=== PATIENT | female | born 1965 | race Hispanic/Latino ===

== ENCOUNTER 2017-04-05 06:21 | Day surgery (SDC) | payer BC ==
[2017-04-04 11:45] VITALS: BMI 54.5
[~2017-04-05 06:21] MED LIST: Cyclopentolate 1% Opth Drop 2 ML BOT FS SCH; EPINEPHrine 0.3 MG, Dextrose 50% 3 ML in Ophthalmic Irrigation Solution 500 ML FS SCH; Phenylephrine HCl 2.5% Ophth Soln 5 ML BOT FS SCH
[2017-04-05] MEDS ORDERED: Phenylephrine HCl 2.5% Ophth Soln 5 ML BOT ONE (06:42)
[2017-04-05] MEDS ORDERED: Cyclopentolate 1% Opth Drop 2 ML BOT ONE ×2 (06:42→06:47)
[2017-04-05] MEDS ORDERED: Diprivan 20 ML ONE (06:53)
[2017-04-05] MEDS ORDERED: Midazolam HCl 2 mg/2 ml Vial ONE (08:01)
[2017-04-05] MEDS ORDERED: Propofol 200 MG/20 ML VIAL ONE (08:15)
--- NOTE | 2017-04-05 09:29 | OP ---
DATE OF PROCEDURE: 04/05/2017 PREOPERATIVE DIAGNOSIS: Vitreous hemorrhage. POSTOPERATIVE DIAGNOSES: Vitreous hemorrhage, tractional retinal detachment, right eye. SURGEON: Herb Benavidez M.D. ANESTHESIA: Local with monitored anesthesia care. PROCEDURE IN DETAIL: The patient was identified in the preoperative holding area. Appropriate info rmed consent for the planned surgical procedure on the right eye had been obtained. The patient was transported to the operative suite where appropriate cardiopulmonary monitoring was established. L ocal anesthesia was obtained using retrobulbar and modified Van Lint lid block using 50/50 mixture o f 4% lidocaine and 0.75% bupivacaine. The patient was prepped and draped in the usual sterile lizy r for ophthalmic surgery on the right eye. Lid speculum was placed in the right eye. The 25-gauge trocars were placed in conjunctiva and sclera supratemporally, inferotemporally, and supranasally. Infusion line was placed inferotemporally. Light pipe and vitreous cutter were inserted into the ey e. Core of vitrectomy was performed and areas of tractional detachment were noted superior nasally and inferiorly. These were dissected from the retinal surface. Area of subretinal fluid was noted superiorly and very thin retina was noted nasally to the nerve and all tractional attachments were r elieved. Panretinal photocoagulation was placed into all nonmacular and nontreated areas of the ret arsh. Complete air fluid exchange was performed with 10 minutes being allowed for fluid to drain pos teriorly. Trocars were removed and eye was noted to retain pressure well. Retrobulbar Kenalog and subconjunctival Ancef were placed. Atropine and antibiotic ointment were placed, and the eye was pa tched and shielded. The patient was taken to the postoperative recovery unit in good condition crissy mitchell suffered no immediate perioperative complications. DISCHARGE INSTRUCTIONS: The patient was instructed to keep patch and shield on, avoid lifting and b ending, and follow up in the morning with Dr. Benavidez.
== END 2017-04-05 10:06 | disposition home or self-care (01) ==
LOC: SDC 06:21
PROVIDERS: ATTEND Ophthalmology Retina Specialist
PROC: 08T43ZZ Resection of Right Vitreous, Percutaneous Approach (ICD-10-PCS; principal; 2017-04-05)
PROC: 08QE3ZZ Repair Right Retina, Percutaneous Approach (ICD-10-PCS; principal; 2017-04-05)
DX: H43.11 Vitreous hemorrhage, right eye (principal); H33.41 Traction detachment of retina, right eye; I10 Essential (primary) hypertension; E11.9 Type 2 diabetes mellitus without complications; Z79.4 Long term (current) use of insulin; Z79.899 Other long term (current) drug therapy; Z88.5 Allergy status to narcotic agent; Z88.0 Allergy status to penicillin; Z89.421 Acquired absence of other right toe(s); Z90.49 Acquired absence of other specified parts of digestive tract; Z98.890 Other specified postprocedural states
CPT/HCPCS: 36416; J0171; J2250; J2704

== ENCOUNTER 2017-10-12 12:39 | Inpatient (IN) | payer BC ==
[2017-10-12 14:17] LABS: #Eosinphils 0.2 thou/uL (0.0-0.7); #Lymphocytes 2.1 thou/uL (1.20-3.40); #Monocytes 0.6 thou/uL (0.11-0.59); #Neutrophils 6.4 thou/uL (1.40-6.50); %Basophils 0.3 % (0.0-1.0); %Eosinophils 1.9 % (0.0-10.0); %Lymphocytes 22.4 % (21.0-51.0); %Monocytes 6.8 % (0.0-10.0); %Neutrophils 68.5 % (42.0-75.0); Hemoglobin 13.8 g/dL (12.0-16.0); Mean Corpuscular HGB CONC 34.6 g/dL (32.0-36.0); Mean Corpuscular Hemoglobin 29.7 pg (27.0-31.0); Mean Corpuscular Volume 85.9 fl (81.0-99.0); Mean Platelet Volume 8.7 fL (7.4-10.4); Platelet Count 211 thou/uL (130-400); RBC Distribution Width 12.2 % (11.5-14.5); Red Blood Cell (RBC) Count 4.63 mill/uL (4.20-5.40); White Blood Cell (WBC) Count 9.3 thou/uL (4.8-10.8)
--- NOTE | 2017-10-12 14:43 | RAD ---
3 VIEWS LEFT FOOT: Date: 10/12/17 INDICATION: Left leg pain and redness. COMPARISON: None. FINDINGS: Since the comparison exam dated 12/18/16, there has been interval partial reamputation of the first d igit through the proximal phalangeal shaft. There is soft tissue swelling and soft tissue gas involvi ng the distal tip of the left foot third digit. No definite destructive osteolysis is evident. There is soft tissue swelling of the foreleg. Lisfranc alignment is preserved. There is scattered osteoarth rosis of the midfoot and forefoot. Enthesopathic change is seen off the calcaneus. Monckeberg's calci fications seen within the soft tissues. IMPRESSION: 1. Soft tissue infection of the distal tip of the left third digit without overt destructive osteoly sis suggests radiographic evidence of osteomyelitis. 2. Interval partial reamputation of the first ray through the proximal phalangeal shaft. 3. Scattered osteoarthrosis. 4. Soft tissue swelling of the left foot. POS: [facility]
--- NOTE | 2017-10-12 14:44 | ULT ---
VENOUS DUPLEX SONOGRAM LEFT LOWER EXTREMITY: Date: 10/12/17 HISTORY: Left leg pain and edema. FINDINGS: The left common femoral vein and greater saphenous junction were evaluated along with the femoral, de ep femoral, popliteal, and posterior tibial veins. There is good color and spectral Doppler flow, com pression, and augmentation. IMPRESSION: No sonographic evidence of deep venous thrombosis within the left lower extremity. POS: [facility]
--- NOTE | 2017-10-12 14:45 | RAD ---
2 VIEWS LEFT FORELEG: Date: 10/12/17 INDICATION: Left leg pain and redness. COMPARISON: None. FINDINGS: No acute fracture or subluxation is evident. There is degenerative arthrosis of the left knee. This i s progressed from the comparison dated 03/31/03. IMPRESSION: 1. No acute osseous abnormality. 2. Worsening moderate osteoarthrosis of the left knee. POS: [facility]
[2017-10-12 15:05] LABS: ALT (SGPT) 18 U/L (8-55); AST (SGOT) 18 U/L (5-34); Alkaline Phosphatase 112 U/L (40-150); Anion Gap 10 mmol/L (10-20); BUN (Urea Nitrogen) 25 mg/dL (9.8-20.1); Bilirubin, Total 0.4 mg/dL (0.2-1.2); Calc. Creatinine Clearance 0 mL/min (70-130); Calcium 9.2 mg/dL (7.8-10.44); Carbon Dioxide 23 mmol/L (22-29); Chloride 107 mmol/L (98-107); Estimated GFR-MDRD 75; Globulin 3.9 g/dL (2.4-3.5); Glucose 148 mg/dL (70-105); Protein, Total 7.9 g/dL (6.0-8.3); Sodium 136 mmol/L (136-145)
[2017-10-12] MEDS ORDERED: Ketorolac Tromethamine 30 MG/ML VIAL ONE (15:26)
--- NOTE | 2017-10-12 16:27 | HP ---
PRIMARY CARE PHYSICIAN: Camila Tanner, Family Nurse Practitioner. REASON FOR ADMISSION: Left lower extremity cellulitis. HISTORY OF PRESENT ILLNESS: A 52-year-old female who has a history of diabetes as well as u nderlying morbid obesity who presented to emergency room with a complaint of her erythema, swelling, tenderness over left lower extremity which was started yesterday and rapidly gotten worse today. Iwona hinton reports that her redness and swelling significantly worsened this morning and she was concerned about because of her diabetes history. She has a history of diabetic toe infection in the past requi red ray amputation of first great toe. The patient also has some callus and open lesion on the third left toe. Patient denies any trauma. She denies any insect bites. She denies any fever or chills. She does report pain in lower extremity about 5/10 in intensity, which is getting worse with walkin g. In the emergency room, patient was slightly having low grade fever. Her ultrasound was negative for any DVT. X-ray showed only soft tissue swelling without any acute process. At this point, because o f rapidly worsening condition and underlying diabetes history, the patient is at risk for worsening o f infection, sepsis and that is why we decided to keep this patient in hospital for IV antibiotic the rapy. Patient denies any UTI symptoms. She denies any constipation, diarrhea. She denies any chest pain, palpitation. She denies any calf tenderness. She denies any headache, flu-like illness or focal mot or or sensory symptoms. REVIEW OF SYSTEMS: The following complete review of systems was negative, unless otherwise mentioned in the HPI or below: Constitutional: Weight loss or gain, ability to conduct usual activities. Sk in: Rash, itching. Eyes: Double vision, pain. ENT/Mouth: Nose bleeding, neck stiffness, pain, te nderness. Cardiovascular: Palpitations, dyspnea on exertion, orthopnea. Respiratory: Shortness of breath, wheezing, cough, hemoptysis, fever or night sweats. Gastrointestinal: Poor appetite, abdom inal pain, heartburn, nausea, vomiting, constipation, or diarrhea. Genitourinary: Urgency, frequenc y, dysuria, nocturia. Musculoskeletal: Pain, swelling. Neurologic/Psychiatric: Anxiety, depressio n. Allergy/Immunologic: Skin rash, bleeding tendency. Please see my HPI for pertinent positive and negative. All other review of systems reviewed and negative except as mentioned in the HPI. ALLERGIES: MORPHINE and PENICILLIN. CURRENT HOME MEDICATIONS: The patient does not have any medication with her at this point, but she r eports that there is no significant change in her medication from previous. The patient is on follow ing medication based on our hospital record, Coreg 3.125 mg p.o. b.i.d., Lantus insulin 30 units subQ at bedtime and 40 units subQ in the morning, MiraLax 17 grams p.o. daily p.r.n., ranitidine 300 mg p .o. daily p.r.n., tramadol 50 mg q.4 hourly p.r.n. PAST MEDICAL HISTORY: Morbid obesity, diabetes type 2, hypertension, history of glaucoma in the left eye, gastroesophageal reflux disease, osteoarthritis. PAST SURGICAL HISTORY: Cholecystectomy, gluteal abscess required I&D, left eye surgery, left great t oe partial ray amputation, left fifth toe partial amputation. PAST PSYCHIATRIC HISTORY: Reviewed and negative. SOCIAL HISTORY: The patient lives at home with family. No history of tobacco, alcohol or illicit dr ug abuse. FAMILY HISTORY: No strong family history of premature coronary artery disease, stroke or cancer. Di abetes and asthma runs among several family members. EMERGENCY ROOM COURSE: Patient has received vancomycin 1 gram and Toradol 30 mg. PHYSICAL EXAMINATION: VITAL SIGNS: On arrival, blood pressure 151/77, pulse 78, respiratory rate 18, temperature 99.0, sat uration 99%, weight 131.5 kilograms. GENERAL: Patient is currently alert, awake, no obvious acute distress. HEENT: Normocephalic, atraumatic. Eyes: Pupils round, reactive to light. Extraocular muscle intac t. ENT: Oropharynx within normal limits. Moist mucous membranes. No oral lesion, no pharyngeal er ythema, no exudate. NECK: Supple, no JVD, no thyromegaly, no carotid bruit, no jugular venous distention. LUNGS: Clear to auscultation without any rhonchi or rales. CARDIAC: S1, S2 regular. No murmur, no gallop, no rub. ABDOMEN: Morbid obesity limiting examination. Bowel sounds present, nontender, nondistended. No or ganomegaly, no mass, no suprapubic tenderness. BACK: Unremarkable, no CVA tenderness. EXTREMITIES: Upper extremities, passive movement of all joints are normal. Lower extremities, left lower extremity, erythema, swelling, tenderness noted. Good distal pulsation. On the third toe, pat ient does have callus as well as mild diabetic toe ulcer without any significant purulent drainage. Patient does have partial ray amputation of great toe as well as fifth toe. Right lower extremity ap pears to be within normal limit. Patient does have arthritis changes on left knee. NEUROLOGIC: Nonfocal examination. The patient moves all 4 limbs. Plantar bilateral flexor. PSYCHIATRIC: Normal affect. HEMATOLOGIC: No lymphadenopathy. SIGNIFICANT LABS AND INVESTIGATION: CBC: WBC 9.3, hemoglobin 13.8, platelet 211. ESR 47. BMP: So dium 136, potassium 4.0, chloride 107, carbon dioxide 23, anion gap 10, BUN 25, creatinine 0.80, gluc ose 148, calcium 9.2, lactic acid 1.0. LFT: AST 18, ALT 18, alkaline phosphatase 112, albumin 4.0. CRP 1.91. Ultrasound of lower extremity, negative for any DVT. X-ray tibia, fibula leg showing wor sening of osteoarthritis of left knee. X-ray of the left foot showing soft tissue infection of the d istal tip of the left third digit, soft tissue swelling of the left foot. ASSESSMENT AND PLAN: 1. Left lower extremity cellulitis rapidly getting worse with risk of sepsis. 2. Diabetes type 2, insulin requiring. 3. Morbid obesity. 4. Gastroesophageal reflux disease. 5. Hypertension. 6. History of glaucoma and left eye. PLAN: 1. Admission to medical floor. 2. Vancomycin as per pharmacy adjusted dose. 3. Rocephin 2 gram IV daily. 4. Watch for any allergic reaction given patient has previous history of PENICILLIN allergy. 5. DVT prophylaxis with Lovenox 40 mg subQ daily. 6. Probiotics with Florastor 250 mg p.o. daily. 7. Gastrointestinal prophylaxis with Pepcid 20 mg p.o. b.i.d. 8. Code status: The patient is FULL CODE. Patient is making her decision by herself. Disposition plan based on clinical course. We are expecting patient's stay in hospital more than 2 m idnights. Patient will need IV antibiotic therapy and upon clinical improvement, we will decide to l et her go home in 2-3 days. This patient's laboratory parameter looks normal, but clinically this patient has very bad cellulitis that warrants admission.
[2017-10-12] MEDS ORDERED: Sodium Chloride 0.65% Nasal 44 ML BOT EA NARE PRN (17:09)
[2017-10-12] MEDS ORDERED: Ondansetron ODT 4 MG TAB PO PRN (17:09)
[2017-10-12] MEDS ORDERED: Loratadine 10 MG TAB PO PRN (17:09)
[2017-10-12] MEDS ORDERED: Chloraseptic Spray 180 ml Bottle PO PRN (17:09)
[2017-10-12] MEDS ORDERED: hydrALAZINE 20 MG/ML VIAL SLOW IVP PRN (17:09)
[2017-10-12] MEDS ORDERED: Dextrose 50% Abboject 50 ML SYRINGE SLOW IVP PRN (17:09)
[2017-10-12] MEDS ORDERED: Fentanyl 100 MCG/2 ML VIAL SLOW IVP PRN (17:09)
[2017-10-12] MEDS ORDERED: Nystatin Powder 15 GM BOT TOP PRN (17:09)
[2017-10-12] MEDS ORDERED: Acetaminophen 325 MG TAB PO PRN (17:09)
[2017-10-12] MEDS ORDERED: Milk Of Magnesia 30 ML UDCUP PO PRN (17:09)
[2017-10-12] MEDS ORDERED: Diabetic Tussin 200 MG/10 ML UDCUP PO PRN (17:09)
[2017-10-12] MEDS ORDERED: Artificial Tears 18 DROP/0.9 ML EA EYE PRN (17:09)
[2017-10-12] MEDS ORDERED: Ketorolac Tromethamine 30 MG/ML VIAL IVP PRN (17:09)
[2017-10-12] MEDS ORDERED: HumaLOG 300 UNITS/3 ML VIAL SC PRN (17:09)
[2017-10-12] MEDS ORDERED: Ondansetron HCl/PF 4 MG/2 ML Vial IVP PRN (17:09)
[2017-10-12] MEDS ORDERED: Eucerin (Mineral Oil/Petrolatum,White) 30 gm Jar TOP PRN (17:09)
[2017-10-12] MEDS ORDERED: Dextrose 5% in Water 1,000 ML IV PRN (17:09)
[2017-10-12] MEDS ORDERED: Zolpidem Tartrate 5 MG TAB PO PRN (17:09)
[2017-10-12] MEDS ORDERED: Loperamide HCl 2 MG CAP PO PRN (17:09)
[2017-10-12] MEDS ORDERED: Senokot 8.6 MG TAB PO PRN (17:09)
[2017-10-12 17:31] VITALS: BMI 52.8
[2017-10-12] MEDS ORDERED: cefTRIAXone\\ROCEPHIN 2 GM in Sodium Chloride 0.9% 100 ML IVPB SCH (18:00)
[2017-10-12] MEDS: cefTRIAXone\\ROCEPHIN 2 GM in Sodium Chloride 0.9% 100 ML IVPB SCH (21:34)
[2017-10-12] MEDS: Famotidine 20 MG TAB PO SCH (21:37)
[2017-10-12] MEDS: Carvedilol 3.125 MG TAB PO SCH (21:38)
[2017-10-12] MEDS: Insulin Detemir 100 UNITS/ML 20 UNITS in Pre-Filled Syringe SC SCH (21:45)
[2017-10-13] MEDS ORDERED: Timolol 0.25% Ophth Soln 5 ml Bottle EA EYE SCH (09:00)
[2017-10-13] MEDS ORDERED: Brimonidine Tartrate 0.2% Ophth Soln 5 ml Bottle EA EYE SCH (09:00)
[2017-10-13] MEDS ORDERED: Polyethylene Glycol 3350 17 GM Packet PO PRN (09:16)
[2017-10-13] MEDS: Timolol 0.25% Ophth Soln 5 ml Bottle EA EYE SCH ×3 (09:43→20:30)
[2017-10-13] MEDS: Brimonidine Tartrate 0.2% Ophth Soln 5 ml Bottle EA EYE SCH ×2 (09:44→20:04)
[2017-10-13] MEDS: Insulin Detemir 100 UNITS/ML 20 UNITS in Pre-Filled Syringe SC SCH ×2 (09:46→20:07)
[2017-10-13] MEDS: Enoxaparin Sodium 40 MG/0.4 ML SYRINGE SC SCH (09:46)
[2017-10-13] MEDS: Famotidine 20 MG TAB PO SCH ×2 (09:47→20:03)
[2017-10-13] MEDS: Carvedilol 3.125 MG TAB PO SCH ×2 (09:47→10:48)
[2017-10-13] MEDS: traMADol HCl 50 MG TAB PO PRN (09:48)
[2017-10-13] MEDS: Saccharomyces boulardii 250 MG CAP PO SCH (09:48)
--- NOTE | 2017-10-13 10:00 | PDOC.PN ---
- Subjective Encounter Start Date: 10/13/17 Encounter Start Time: 08:00 Patient seen and examined. No new complaints. No overnight events - Objective Resuscitation Status: Resuscitation Status FULL:Full Resuscitation MAR Reviewed: Yes Vital Signs & Weight: Vital Signs (12 hours) Temp Pulse Resp BP Pulse Ox 10/13/17 07:43 98.3 F 75 16 153/83 H 98 10/13/17 04:00 97.6 F 74 18 143/78 H 99 10/13/17 00:00 97.7 F 80 18 147/77 H 96 Weight Weight 289 lb Result Diagrams: 10/12/17 14:06 10/12/17 14:06 Additional Labs: Accuchecks 10/13/17 10/12/17 10/12/17 05:19 20:21 17:06 POC Glucose 137 H 174 H 124 H Phys Exam - Physical Examination Constitutional: NAD HEENT: PERRLA, moist MMs, sclera anicteric Neck: no JVD, supple Respiratory: no wheezing, no rales, no rhonchi Cardiovascular: RRR, no significant murmur, no rub Gastrointestinal: soft, non-tender, no distention, positive bowel sounds left leg cellulitis improving Neurological: non-focal, normal sensation, moves all 4 limbs Psychiatric: normal affect, A&O x 3 Skin: no rash, normal turgor Dx/Plan (1) Cellulitis of left lower extremity Code(s): L03.116 - CELLULITIS OF LEFT LOWER LIMB Status: Acute (2) Diabetes type 2, controlled Code(s): E11.9 - TYPE 2 DIABETES MELLITUS WITHOUT COMPLICATIONS Status: Chronic (3) GERD (gastroesophageal reflux disease) Code(s): K21.9 - GASTRO-ESOPHAGEAL REFLUX DISEASE WITHOUT ESOPHAGITIS Status: Chronic (4) Hypertension Code(s): I10 - ESSENTIAL (PRIMARY) HYPERTENSION Status: Chronic Qualifiers: (5) Morbid obesity with BMI of 50.0-59.9, adult Code(s): E66.01 - MORBID (SEVERE) OBESITY DUE TO EXCESS CALORIES; Z68.43 - BODY MASS INDEX (BMI) 50-59.9 , ADULT Status: Chronic (6) Glaucoma Code(s): H40.9 - UNSPECIFIED GLAUCOMA Status: Acute Qualifiers: Glaucoma type: primary angle-closure Primary angle closure glaucoma type: chronic Laterality: left Glaucoma stage: stage unspecified Qualified Code( s): H40.2220 - Chronic angle-closure glaucoma, left eye, stage unspecified - Plan cont current plan of care, continue antibiotics * restart her home medication * continue vancomycin and rocephin * she has clinical improvement, will continue next couple days * medication reviewed as below * symptomatic treatment. Review of Systems - Review of Systems Eyes: negative: Pain, Vision Change, Conjunctivae Inflammation, Eyelid Inflammation, Redness, Other ENT: negative: Ear Pain, Ear Discharge, Nose Pain, Nose Discharge, Nose Congestion, Mouth Pain, Mouth Swelling, Throat Pain, Throat Swelling, Other Respiratory: negative: Cough, Dry, Shortness of Breath, Hemoptysis, SOB with Excertion, Pleuritic Pain, Sputum, Wheezing Cardiovascular: negative: chest pain, palpitations, orthopnea, paroxysmal nocturnal dyspnea, edema, light headedness, other Gastrointestinal: negative: Nausea, Vomiting, Abdominal Pain, Diarrhea, Constipation, Melena, Hematochezia, Other Genitourinary: negative: Dysuria, Frequency, Incontinence, Hematuria, Retention , Other Musculoskeletal: Leg Pain. negative: Neck Pain, Shoulder Pain, Arm Pain, Back Pain, Hand Pain, Foot Pain, Other Skin: negative: Rash, Lesions, Ibrahima, Bruising, Other - Medications/Allergies Allergies/Adverse Reactions: Allergies Allergy/AdvReac Type Severity Reaction Status Date / Time morphine Allergy Intermediate ITCHING, Verified 04/04/17 11:43 RASH Penicillins Allergy Hives Verified 04/04/17 11:43 Medications: Current Medications Acetaminophen (Tylenol) 650 mg PO Q4H PRN PRN Reason: Headache/Fever or Pain Al Hydroxide/Mg Hydroxide (Maalox) 30 ml PO Q6H PRN PRN Reason: Heartburn or Indigestion Artificial Tears (Tears Naturale) 0 drop EA EYE PRN PRN PRN Reason: Dry Eyes Brimonidine Tartrate (Alphagan 0.2% Ophth Soln) 1 drop EA EYE BID ON LICENSE OF [facility] Last Admin: 10/13/17 09:44 Dose: 1 drop Carvedilol (Coreg) 3.125 mg PO DAILY ON LICENSE OF [facility] Last Admin: 10/13/17 09:47 Dose: 3.125 mg Dextrose/Water (Dextrose 50%) 25 gm SLOW IVP PRN PRN PRN Reason: Hypoglycemia Enoxaparin Sodium (Lovenox) 40 mg SC 0900 ON LICENSE OF [facility] Last Admin: 10/13/17 09:46 Dose: 40 mg Famotidine (Pepcid) 20 mg PO BID ON LICENSE OF [facility] Last Admin: 10/13/17 09:47 Dose: 20 mg Fentanyl (Sublimaze) 25 mcg SLOW IVP Q4H PRN PRN Reason: Pain Glucagon (Glucagon) 1 mg IM PRN PRN PRN Reason: Hypoglycemia Guaifenesin (Robitussin Sf) 200 mg PO Q4H PRN PRN Reason: Cough Hydralazine HCl (Apresoline) 10 mg SLOW IVP Q4H PRN PRN Reason: Systolic BP > 180 Dextrose/Water (D5w) 1,000 mls @ 0 mls/hr IV .Q0M PRN; As Directed PRN Reason: Hypoglycemia Insulin Detemir 20 units/ (Miscellaneous Medication) 0.2 mls @ 0 mls/hr SC HS ON LICENSE OF [facility] Last Admin: 10/12/17 21:45 Dose: 0.2 mls Insulin Detemir 20 units/ (Miscellaneous Medication) 0.2 mls @ 0 mls/hr SC QAM ON LICENSE OF [facility] Last Admin: 10/13/17 09:46 Dose: 0.2 mls Vancomycin HCl 2 gm/ Sodium (Chloride) 500 mls @ 250 mls/hr IVPB 0600,1800 ON LICENSE OF [facility] Last Admin: 10/13/17 06:12 Dose: 500 mls Ceftriaxone Sodium 2 gm/ (Sodium Chloride) 100 mls @ 200 mls/hr IVPB 2000 ON LICENSE OF [facility] Last Admin: 10/12/17 21:34 Dose: 100 mls Insulin Human Lispro (Humalog) 0 units SC .MODERATE SLIDING SC PRN PRN Reason: Moderate Correctional Scale Insulin Human Lispro (Humalog) 0 units SC .BEDTIME SLIDING SC PRN PRN Reason: Bedtime Correctional Scale Ketorolac Tromethamine (Toradol) 15 mg IVP Q6H PRN PRN Reason: Pain Stop: 10/17/17 17:10 Last Admin: 10/12/17 21:39 Dose: 15 mg Loperamide HCl (Imodium) 2 mg PO PRN PRN PRN Reason: Diarrhea/Loose Stools Loratadine (Claritin) 10 mg PO DAILYPRN PRN PRN Reason: Sinus Symptoms Magnesium Hydroxide (Milk Of Magnesium) 30 ml PO DAILYPRN PRN PRN Reason: Constipation Mineral Oil/White Petrolatum (Eucerin Cream) 0 gm TOP BIDPRN PRN PRN Reason: Dry Skin Miscellaneous Medication (Pharmacy To Dose) 1 each IVPB ONE PRN PRN Reason: Pharmacy to dose Stop: 11/11/17 17:10 Nystatin (Mycostatin Powder) 1 gm TOP BID PRN PRN Reason: Topical Irritations Ondansetron HCl (Zofran Odt) 4 mg PO Q6H PRN PRN Reason: Nausea/Vomiting Ondansetron HCl (Zofran) 4 mg IVP Q6H PRN PRN Reason: Nausea/Vomiting Phenol (Chloraseptic [place] 180 Ml Bot) 0 ml PO PRN PRN PRN Reason: Sore Throat Polyethylene Glycol (Miralax) 17 gm PO PRN PRN PRN Reason: Constipation Saccharomyces Boulardii (Florastor) 250 mg PO DAILY ON LICENSE OF [facility] Last Admin: 10/13/17 09:48 Dose: 250 mg Senna (Senokot) 2 tab PO HSPRN PRN PRN Reason: Constipation Sodium Chloride (Harlan Nasal [place] 0.65%) 0 ml EA NARE QIDPRN PRN PRN Reason: Nasal Congestion Sodium Chloride (Flush - Normal Saline) 10 ml IVF Q12HR ON LICENSE OF [facility] Last Admin: 10/13/17 09:47 Dose: 10 ml Sodium Chloride (Flush - Normal Saline) 10 ml IVF PRN PRN PRN Reason: Saline Flush Timolol Maleate (Timoptic 0.25% Oph Soln) 1 drop EA EYE TID ON LICENSE OF [facility] Last Admin: 10/13/17 09:43 Dose: 1 drop Tramadol HCl (Ultram) 50 mg PO Q4H PRN PRN Reason: Moderate Pain (4-6) Last Admin: 10/13/17 09:48 Dose: 50 mg Zolpidem Tartrate (Ambien) 5 mg PO HSPRN PRN PRN Reason: Insomnia
[2017-10-13] MEDS: HumaLOG 300 UNITS/3 ML VIAL SC PRN ×2 (12:38→16:31)
[2017-10-13] MEDS: Mag-Al 1200 mg/1200 mg/30 ML UDCUP PO PRN (18:39)
[2017-10-13] MEDS: cefTRIAXone\\ROCEPHIN 2 GM in Sodium Chloride 0.9% 100 ML IVPB SCH (20:05)
[2017-10-13] MEDS ORDERED: Non-Formulary Item 1 EACH (Brimonidine Tartrate [Brimonidine Tartrate 0.15% Ophth Soln] 1 EA EYE SCH (21:00)
[2017-10-14 05:49] LABS: Vancomycin, Trough 20.9 ug/mL
[2017-10-14] MEDS: Brimonidine Tartrate 0.2% Ophth Soln 5 ml Bottle EA EYE SCH ×2 (08:03→20:34)
[2017-10-14] MEDS: Enoxaparin Sodium 40 MG/0.4 ML SYRINGE SC SCH (08:04)
[2017-10-14] MEDS: Famotidine 20 MG TAB PO SCH ×2 (08:05→20:34)
[2017-10-14] MEDS: Insulin Detemir 100 UNITS/ML 20 UNITS in Pre-Filled Syringe SC SCH ×2 (08:05→20:35)
[2017-10-14] MEDS: Saccharomyces boulardii 250 MG CAP PO SCH (08:05)
[2017-10-14] MEDS: Carvedilol 3.125 MG TAB PO SCH (08:05)
[2017-10-14] MEDS: Timolol 0.25% Ophth Soln 5 ml Bottle EA EYE SCH ×3 (08:07→20:34)
--- NOTE | 2017-10-14 10:49 | PDOC.PN ---
- Subjective Encounter Start Date: 10/14/17 Encounter Start Time: 09:00 Patient seen and examined for cellulitis. No new complaints. No overnight events - Objective Resuscitation Status: Resuscitation Status FULL:Full Resuscitation MAR Reviewed: Yes Vital Signs & Weight: Vital Signs (12 hours) Temp Pulse Resp BP Pulse Ox 10/14/17 07:38 97.9 F 77 16 146/79 H 98 10/14/17 04:00 97.9 F 72 20 118/73 96 10/14/17 00:00 97.8 F 70 20 125/75 97 Weight Admit Weight 289 lb Weight 289 lb I&O: 10/13/17 10/14/17 10/15/17 06:59 06:59 06:59 Intake Total 720 Balance 720 Result Diagrams: 10/12/17 14:06 10/12/17 14:06 Additional Labs: Accuchecks 10/14/17 10/13/17 10/13/17 04:05 16:26 11:55 POC Glucose 175 H 228 H 195 H Phys Exam - Physical Examination Constitutional: NAD HEENT: PERRLA, moist MMs, sclera anicteric Neck: no JVD, supple Respiratory: no wheezing, no rales, no rhonchi Cardiovascular: RRR, no significant murmur, no rub Gastrointestinal: soft, non-tender, no distention, positive bowel sounds Musculoskeletal: no edema, pulses present left LE cellulitis continue to improve Neurological: non-focal, normal sensation, moves all 4 limbs Psychiatric: normal affect, A&O x 3 Skin: no rash, normal turgor Dx/Plan (1) Cellulitis of left lower extremity Code(s): L03.116 - CELLULITIS OF LEFT LOWER LIMB Status: Acute (2) Diabetes type 2, controlled Code(s): E11.9 - TYPE 2 DIABETES MELLITUS WITHOUT COMPLICATIONS Status: Chronic (3) GERD (gastroesophageal reflux disease) Code(s): K21.9 - GASTRO-ESOPHAGEAL REFLUX DISEASE WITHOUT ESOPHAGITIS Status: Chronic (4) Hypertension Code(s): I10 - ESSENTIAL (PRIMARY) HYPERTENSION Status: Chronic Qualifiers: (5) Morbid obesity with BMI of 50.0-59.9, adult Code(s): E66.01 - MORBID (SEVERE) OBESITY DUE TO EXCESS CALORIES; Z68.43 - BODY MASS INDEX (BMI) 50-59.9 , ADULT Status: Chronic (6) Glaucoma Code(s): H40.9 - UNSPECIFIED GLAUCOMA Status: Acute Qualifiers: Glaucoma type: primary angle-closure Primary angle closure glaucoma type: chronic Laterality: left Glaucoma stage: stage unspecified Qualified Code( s): H40.2220 - Chronic angle-closure glaucoma, left eye, stage unspecified - Plan cont current plan of care, plan discussed w/ family, continue antibiotics * continue rocephin and vancomycin * expecting discharge tomorrow * medication reviewed as below * symptomatic treatment * discussed with . Review of Systems - Review of Systems ENT: negative: Ear Pain, Ear Discharge, Nose Pain, Nose Discharge, Nose Congestion, Mouth Pain, Mouth Swelling, Throat Pain, Throat Swelling, Other Respiratory: negative: Cough, Dry, Shortness of Breath, Hemoptysis, SOB with Excertion, Pleuritic Pain, Sputum, Wheezing Cardiovascular: negative: chest pain, palpitations, orthopnea, paroxysmal nocturnal dyspnea, edema, light headedness, other Gastrointestinal: negative: Nausea, Vomiting, Abdominal Pain, Diarrhea, Constipation, Melena, Hematochezia, Other Genitourinary: negative: Dysuria, Frequency, Incontinence, Hematuria, Retention , Other Musculoskeletal: negative: Neck Pain, Shoulder Pain, Arm Pain, Back Pain, Hand Pain, Leg Pain, Foot Pain, Other Skin: negative: Rash, Lesions, Ibrahima, Bruising, Other - Medications/Allergies Allergies/Adverse Reactions: Allergies Allergy/AdvReac Type Severity Reaction Status Date / Time morphine Allergy Intermediate ITCHING, Verified 04/04/17 11:43 RASH Penicillins Allergy Hives Verified 04/04/17 11:43 Medications: Current Medications Acetaminophen (Tylenol) 650 mg PO Q4H PRN PRN Reason: Headache/Fever or Pain Al Hydroxide/Mg Hydroxide (Maalox) 30 ml PO Q6H PRN PRN Reason: Heartburn or Indigestion Last Admin: 10/13/17 18:39 Dose: 30 ml Artificial Tears (Tears Naturale) 0 drop EA EYE PRN PRN PRN Reason: Dry Eyes Brimonidine Tartrate (Alphagan 0.2% Ophth Soln) 1 drop EA EYE BID [facility] Last Admin: 10/14/17 08:03 Dose: 1 drop Carvedilol (Coreg) 3.125 mg PO DAILY [facility] Last Admin: 10/14/17 08:05 Dose: 3.125 mg Dextrose/Water (Dextrose 50%) 25 gm SLOW IVP PRN PRN PRN Reason: Hypoglycemia Enoxaparin Sodium (Lovenox) 40 mg SC 0900 [facility] Last Admin: 10/14/17 08:04 Dose: 40 mg Famotidine (Pepcid) 20 mg PO BID [facility] Last Admin: 10/14/17 08:05 Dose: 20 mg Fentanyl (Sublimaze) 25 mcg SLOW IVP Q4H PRN PRN Reason: Pain Glucagon (Glucagon) 1 mg IM PRN PRN PRN Reason: Hypoglycemia Guaifenesin (Robitussin Sf) 200 mg PO Q4H PRN PRN Reason: Cough Hydralazine HCl (Apresoline) 10 mg SLOW IVP Q4H PRN PRN Reason: Systolic BP > 180 Dextrose/Water (D5w) 1,000 mls @ 0 mls/hr IV .Q0M PRN; As Directed PRN Reason: Hypoglycemia Insulin Detemir 20 units/ (Miscellaneous Medication) 0.2 mls @ 0 mls/hr SC HS [facility] Last Admin: 10/13/17 20:07 Dose: 0.2 mls Insulin Detemir 20 units/ (Miscellaneous Medication) 0.2 mls @ 0 mls/hr SC QAM [facility] Last Admin: 10/14/17 08:05 Dose: 0.2 mls Vancomycin HCl 2 gm/ Sodium (Chloride) 500 mls @ 250 mls/hr IVPB 0600,1800 [facility] Last Admin: 10/14/17 06:00 Dose: 500 mls Ceftriaxone Sodium 2 gm/ (Sodium Chloride) 100 mls @ 200 mls/hr IVPB 2000 [facility] Last Admin: 10/13/17 20:05 Dose: 100 mls Insulin Human Lispro (Humalog) 0 units SC .MODERATE SLIDING SC PRN PRN Reason: Moderate Correctional Scale Last Admin: 10/13/17 16:31 Dose: 4 unit Insulin Human Lispro (Humalog) 0 units SC .BEDTIME SLIDING SC PRN PRN Reason: Bedtime Correctional Scale Ketorolac Tromethamine (Toradol) 15 mg IVP Q6H PRN PRN Reason: Pain Stop: 10/17/17 17:10 Last Admin: 10/12/17 21:39 Dose: 15 mg Loperamide HCl (Imodium) 2 mg PO PRN PRN PRN Reason: Diarrhea/Loose Stools Loratadine (Claritin) 10 mg PO DAILYPRN PRN PRN Reason: Sinus Symptoms Magnesium Hydroxide (Milk Of Magnesium) 30 ml PO DAILYPRN PRN PRN Reason: Constipation Mineral Oil/White Petrolatum (Eucerin Cream) 0 gm TOP BIDPRN PRN PRN Reason: Dry Skin Miscellaneous Medication (Pharmacy To Dose) 1 each IVPB ONE PRN PRN Reason: Pharmacy to dose Stop: 11/11/17 17:10 Nystatin (Mycostatin Powder) 1 gm TOP BID PRN PRN Reason: Topical Irritations Ondansetron HCl (Zofran Odt) 4 mg PO Q6H PRN PRN Reason: Nausea/Vomiting Ondansetron HCl (Zofran) 4 mg IVP Q6H PRN PRN Reason: Nausea/Vomiting Phenol (Chloraseptic Flomot 180 Ml Bot) 0 ml PO PRN PRN PRN Reason: Sore Throat Polyethylene Glycol (Miralax) 17 gm PO PRN PRN PRN Reason: Constipation Saccharomyces Boulardii (Florastor) 250 mg PO DAILY [facility] Last Admin: 10/14/17 08:05 Dose: 250 mg Senna (Senokot) 2 tab PO HSPRN PRN PRN Reason: Constipation Last Admin: 10/13/17 20:29 Dose: 2 tab Sodium Chloride ([place] Nasal [place]om[place] 0.65%) 0 ml EA NARE QIDPRN PRN PRN Reason: Nasal Congestion Sodium Chloride (Flush - Normal Saline) 10 ml IVF Q12HR [facility] Last Admin: 10/14/17 08:06 Dose: Not Given Sodium Chloride (Flush - Normal Saline) 10 ml IVF PRN PRN PRN Reason: Saline Flush Timolol Maleate (Timoptic 0.25% Oph Soln) 1 drop EA EYE TID [facility] Last Admin: 10/14/17 08:07 Dose: 1 drop Tramadol HCl (Ultram) 50 mg PO Q4H PRN PRN Reason: Moderate Pain (4-6) Last Admin: 10/13/17 09:48 Dose: 50 mg Zolpidem Tartrate (Ambien) 5 mg PO HSPRN PRN PRN Reason: Insomnia
[2017-10-14] MEDS: HumaLOG 300 UNITS/3 ML VIAL SC PRN (12:45)
[2017-10-14] MEDS: traMADol HCl 50 MG TAB PO PRN ×2 (12:59→20:38)
[2017-10-14] MEDS: Mag-Al 1200 mg/1200 mg/30 ML UDCUP PO PRN (14:27)
[2017-10-14 17:32] LABS: CKMB 0.7 ng/mL (0-6.6); Troponin I Less than 0.010 ng/mL (< 0.028)
[2017-10-14 20:04] LABS: CKMB 0.5 ng/mL (0-6.6); Troponin I Less than 0.010 ng/mL (< 0.028)
[2017-10-14] MEDS: cefTRIAXone\\ROCEPHIN 2 GM in Sodium Chloride 0.9% 100 ML IVPB SCH (20:39)
[2017-10-14 23:17] LABS: CKMB 0.5 ng/mL (0-6.6); Troponin I Less than 0.010 ng/mL (< 0.028)
[2017-10-15 05:40] LABS: Vancomycin, Trough 22.5 ug/mL
[2017-10-15] MEDS: Saccharomyces boulardii 250 MG CAP PO SCH (08:14)
[2017-10-15] MEDS: Timolol 0.25% Ophth Soln 5 ml Bottle EA EYE SCH (08:14)
[2017-10-15] MEDS: Brimonidine Tartrate 0.2% Ophth Soln 5 ml Bottle EA EYE SCH (08:14)
[2017-10-15 08:15] VITALS: BP 167/88; TEMP 98.4
[2017-10-15] MEDS: Insulin Detemir 100 UNITS/ML 20 UNITS in Pre-Filled Syringe SC SCH (08:16)
[2017-10-15] MEDS: Famotidine 20 MG TAB PO SCH (08:16)
[2017-10-15] MEDS: Enoxaparin Sodium 40 MG/0.4 ML SYRINGE SC SCH ×2 (08:24→08:25)
--- NOTE | 2017-10-15 10:46 | DIS ---
DATE OF ADMISSION: 10/12/2017 DATE OF DISCHARGE: 10/15/2017 PRIMARY CARE PHYSICIAN: Camila Tanner NP. DISCHARGE DISPOSITION: Home. PRIMARY DISCHARGE DIAGNOSIS: Left lower extremity cellulitis, improved. SECONDARY DISCHARGE DIAGNOSES: Glaucoma, diabetes type 2, gastroesophageal reflux disease, hypertens ion, morbid obesity with BMI of 52. PRIMARY PROCEDURE AND OPERATION: None. RADIOLOGICAL INVESTIGATION: Vascular ultrasound was negative for any DVT. Foot x-ray and tibia/fibu la x-ray was unremarkable. SIGNIFICANT LABORATORY DATA: WBC 9.3, hemoglobin 13.8, platelet 211. ESR 47. Sodium 136, creatinin e 0.80. LFT normal. CRP 1.91. Cardiac enzymes negative. Blood culture negative. DISCHARGE MEDICATIONS: Keflex 500 mg t.i.d. for 10 days, doxycycline 100 mg p.o. b.i.d. for 10 days, brimonidine tartrate ophthalmic drop b.i.d., Coreg 3.125 mg p.o. daily, Levemir insulin 30 units sub cutaneously at bedtime and 40 units in morning, MiraLax 17 grams p.o. daily, ranitidine 300 mg p.o. d aily, Florastor 250 mg p.o. daily, Timolol maleate ophthalmic drop t.i.d., tramadol 50 mg q.4 hourly p.r.n. CONTRAINDICATIONS: None. CODE STATUS: FULL CODE. INPATIENT CONSULTANTS: None. ALLERGIES: MORPHINE and PENICILLIN. DISCHARGE PLAN: Post hospital, the patient is instructed to follow up with primary care physician in 1 week. HOSPITAL COURSE: A 52-year-old female with above-mentioned medical problem, who came to [facility] room with 1 or 2 day history of rapidly worsening erythema, swelling, and tenderness over left lower extremity. The patient was diagnosed with cellulitis. She was admitted to medical floor. Sh e was treated with vancomycin and Rocephin. Her blood culture was negative. Patient had significant clinical response for cellulitis. On discharge, we changed to Keflex and doxycycline for another 10 days. The patient is advised to follow with primary care physician. The patient remained hemodynamically stable while in hospital. We resumed all her home medication wh ile in hospital as well as upon discharge. PHYSICAL EXAMINATION: The patient is seen and examined at bedside today. VITAL SIGNS: Currently, temperature 98.4, pulse 79, respiratory rate 16, saturation 95% on room air, blood pressure 167/88, weight 289 pounds. GENERAL: The patient is currently alert, awake, no acute distress. HEAD: Normocephalic, atraumatic. EYES: Pupils round, reactive to light. Extraocular muscle intact. ENT: Oropharynx within normal limits. Moist mucous membranes. No oral lesion, no pharyngeal erythe ma, no exudate. NECK: Supple, no JVD, no thyromegaly, no carotid bruit. LUNGS: Clear to auscultation without any rhonchi or rales. CARDIAC: S1, S2 regular without any murmur. ABDOMEN: Soft and benign. EXTREMITIES: No edema. NEUROLOGIC: Nonfocal examination. All new medication prescription sent to her pharmacy. Patient is medically stable for [email or web address]
--- NOTE | 2017-10-15 12:47 | EKG ---
Test Reason : STAT Blood Pressure : / mmHG Vent. Rate : 067 BPM Atrial Rate : 067 BPM P-R Int : 144 ms QRS Dur : 086 ms QT Int : 398 ms P-R-T Axes : 031 000 046 degrees QTc Int : 420 ms Normal sinus rhythm Possible Left atrial enlargement Borderline ECG When compared with ECG of 21-DEC-2016 16:11, No significant change was found Confirmed by DR. Mikael JACK ([id number]) on 10/15/2017 12:46:40 PM Referred By: Confirmed By:DR. Mikael JACK
[2017-10-15] MEDS ORDERED: Vancomycin HCl 1.5 GM in Sodium Chloride 0.9% 250 ML 300 ML IVPB SCH (18:00)
== END 2017-10-15 10:25 | disposition home or self-care (01) | DRG 603 ==
LOC: ERS 12:39 → T4-A 15:19
PROVIDERS: ADMIT Internal Medicine; ATTEND Internal Medicine
DX: L03.116 Cellulitis of left lower limb (principal); Z68.43 Body mass index [BMI] 50.0-59.9, adult; E11.9 Type 2 diabetes mellitus without complications; E66.01 Morbid (severe) obesity due to excess calories; H40.2220 Chronic angle-closure glaucoma, left eye, stage unspecified; I10 Essential (primary) hypertension; K21.9 Gastro-esophageal reflux disease without esophagitis; Z90.49 Acquired absence of other specified parts of digestive tract; Z79.4 Long term (current) use of insulin; Z88.5 Allergy status to narcotic agent; Z88.0 Allergy status to penicillin
CPT/HCPCS: 36415; 36416; 80053; 80202; 82553; 83605; 84484; 85025; 85652; 86140; 87040; 90471; 90732; 93005; 93010; 96374; A4216; G0009; J0696; J1650; J1815; J1885; J3370; J7050

== ENCOUNTER 2018-03-20 18:20 | Inpatient (IN) | payer BC ==
[2018-03-20] MEDS ORDERED: Magnesium Citrate 300 ML BOT ONE (19:11)
[2018-03-20] MEDS ORDERED: Clindamycin/D5W 900 mg/50 ml Premix Bag ONE (19:11)
[2018-03-20] MEDS ORDERED: Acetaminophen 500 MG TAB ONE (19:11)
[2018-03-20 19:26] LABS: #Eosinphils 0.1 thou/uL (0.0-0.7); #Lymphocytes 2.2 thou/uL (1.20-3.40); #Monocytes 0.7 thou/uL (0.11-0.59); #Neutrophils 6.7 thou/uL (1.40-6.50); %Eosinophils 0.9 % (0.0-10.0); %Lymphocytes 22.9 % (21.0-51.0); %Monocytes 6.9 % (0.0-10.0); %Neutrophils 69.3 % (42.0-75.0); Hemoglobin 13.3 g/dL (12.0-16.0); Mean Corpuscular HGB CONC 33.7 g/dL (32.0-36.0); Mean Corpuscular Hemoglobin 29.4 pg (27.0-31.0); Mean Corpuscular Volume 87.2 fL (78.0-98.0); Mean Platelet Volume 8.9 fL (7.4-10.4); Platelet Count 223 thou/uL (130-400); RBC Distribution Width 12.2 % (11.5-14.5); Red Blood Cell (RBC) Count 4.54 mill/uL (4.20-5.40); White Blood Cell (WBC) Count 9.6 thou/uL (4.8-10.8)
[2018-03-20 19:46] LABS: ALT (SGPT) 19 U/L (8-55); AST (SGOT) 21 U/L (5-34); Albumin 3.9 g/dL (3.5-5.0); Alkaline Phosphatase 102 U/L (40-150); Anion Gap 13 mmol/L (10-20); BUN (Urea Nitrogen) 15 mg/dL (9.8-20.1); Bilirubin, Total 0.3 mg/dL (0.2-1.2); Calc. Creatinine Clearance 0 mL/min (70-130); Calcium 9.7 mg/dL (7.8-10.44); Carbon Dioxide 26 mmol/L (22-29); Chloride 103 mmol/L (98-107); Estimated GFR-MDRD 71; Globulin 4.2 g/dL (2.4-3.5); Glucose 203 mg/dL (70-105); Potassium 3.9 mmol/L (3.5-5.1); Protein, Total 8.1 g/dL (6.0-8.3); Sodium 138 mmol/L (136-145)
[2018-03-20] MEDS ORDERED: Ibuprofen 800 MG TAB ONE (20:30)
[2018-03-20 20:46] LABS: Bilirubin Negative (Negative); Blood, Urine Trace (Negative); Clarity CLEAR (Clear); Glucose, Urine (Dipstick) >=1000 mg/dL (Negative); Leukocyte Negative (Negative); Nitrite Negative (Negative); Protein, Urine (Dipstick) 100 mg/dL (Neg-Trace); Specific Gravity, Urine 1.022 (1.002-1.036); Urobilinogen 0.2 mg/dL (0.2-1.0)
[2018-03-20 20:47] LABS: Bacteria/HPF None Seen HPF (None Seen); Hyaline Casts/LPF 0-3 HYALINE CAST LPF (0-3 Hyaline); Pathc Cast-AUWi Flag 0.14 (0-2.49); Squamous Epithelial 0-3 HPF (0-3); WBC/HPF 0-3 HPF (0-3)
--- NOTE | 2018-03-20 21:13 | ULT ---
VENOUS DOPPLER ULTRASOUND OF THE LEFT LOWER EXTREMITY: 03/20/18 HISTORY: Left lower extremity pain. TECHNIQUE: Anand scale ultrasound with color flow and spectral doppler imaging of the deep venous system of the l eft lower extremity is performed. FINDINGS: There is good flow, compression, and augmentation noted in the left common femoral, femoral, deep fem oral, popliteal, posterior tibial, and greater saphenous veins. IMPRESSION: No evidence of DVT in the left lower extremity. POS: LAURA
[2018-03-20] MEDS ORDERED: Ondansetron HCl/PF 4 MG/2 ML Vial IVP PRN (21:45)
[2018-03-20] MEDS ORDERED: Ondansetron ODT 4 MG TAB SL PRN (21:45)
[2018-03-20 22:02] VITALS: BMI 54.8
[2018-03-20] MEDS: Sodium Chloride 0.9% 1,000 ML IV SCH (22:34)
[2018-03-20] MEDS ORDERED: Polyethylene Glycol 3350 17 GM Packet PO PRN (22:42)
[2018-03-20] MEDS ORDERED: Dextrose 5% in Water 1,000 ML IV PRN (22:43)
[2018-03-20] MEDS ORDERED: Dextrose 50% Abboject 50 ML SYRINGE SLOW IVP PRN (22:43)
--- NOTE | 2018-03-20 23:03 | RAD ---
LEFT FOOT: 03/20/18 Three views. HISTORY: Foot pain. Wounds to foot. History of diabetes. COMPARISON: Comparison made to exam of 10/12/17. There has been amputation of the great toe. The stump appears unchanged from the prior exam. There is evidence of fracture involving the base of the proximal phalanx of the third toe today. This is a new finding. No other fracture or acute osseous abnormality. The degenerative changes in the foot appears stable. IMPRESSION: Evidence of fracture involving the base of the proximal phalanx of the third toe. POS: ASHLEYW
[2018-03-21] MEDS: traMADol HCl 50 MG TAB PO PRN ×4 (00:05→20:48)
[2018-03-21] MEDS ORDERED: Insulin Glargine 25 UNITS in Pre-Filled Syringe 1 EACH SC SCH ×2 (00:15→21:00)
[2018-03-21] MEDS ORDERED: Clindamycin/D5W 900 MG in Premix Bag 1 BAG IVPB SCH (03:00)
[2018-03-21] MEDS: Vancomycin HCl 1.5 GM in Sodium Chloride 0.9% 250 ML 300 ML IVPB SCH ×2 (04:32→10:50)
[2018-03-21 05:10] LABS: #Eosinphils 0.1 thou/uL (0.0-0.7); #Lymphocytes 1.8 thou/uL (1.20-3.40); #Monocytes 0.9 thou/uL (0.11-0.59); #Neutrophils 5.4 thou/uL (1.40-6.50); %Basophils 0.1 % (0.0-1.0); %Eosinophils 1.3 % (0.0-10.0); %Lymphocytes 22.3 % (21.0-51.0); %Monocytes 10.6 % (0.0-10.0); %Neutrophils 65.8 % (42.0-75.0); Hemoglobin 12.1 g/dL (12.0-16.0); Mean Corpuscular Hemoglobin 29.1 pg (27.0-31.0); Mean Corpuscular Volume 87.9 fL (78.0-98.0); Mean Platelet Volume 9.1 fL (7.4-10.4); Platelet Count 195 thou/uL (130-400); Red Blood Cell (RBC) Count 4.16 mill/uL (4.20-5.40); White Blood Cell (WBC) Count 8.2 thou/uL (4.8-10.8)
[2018-03-21 05:31] LABS: Anion Gap 12 mmol/L (10-20); BUN (Urea Nitrogen) 15 mg/dL (9.8-20.1); Calc. Creatinine Clearance 182 mL/min (70-130); Calcium 8.6 mg/dL (7.8-10.44); Carbon Dioxide 22 mmol/L (22-29); Chloride 106 mmol/L (98-107); Estimated GFR-MDRD 78; Glucose 182 mg/dL (70-105); Sodium 136 mmol/L (136-145)
--- NOTE | 2018-03-21 05:57 | HP ---
Patient goes to [facility]. TIME OF EVALUATION: 09:20 p.m. CHIEF COMPLAINT: Left leg swelling. HISTORY OF PRESENT ILLNESS: This is a 52-year-old female patient with past medical history of diabet es, hypertension, chronic peripheral vascular disease with venous stasis in bilateral legs. The juvenal ent came to the hospital after having left leg redness, swelling, decreased range of motion due to pa in, associated with fever and chills and nausea, and the patient also has increase in temperature in that area. As an outpatient, also has bilateral second toes with chronic ulcers, with changing color in the left second toe, symptoms are reported as moderate. REVIEW OF SYSTEMS: Constitutional: Patient has fever, chills, generalized weakness. The patient is obese. Respiratory: No cough, sputum production or shortness of breath. Cardiovascular: No chest pain, palpitation. Gastrointestinal: No nausea, vomiting, diarrhea, abdominal pain. 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 No burning on urination. Extremities: Bilateral leg swelli ng with the left leg being red, tender, bilateral second toe with chronic nonhealing ulcers and the l eft one is without change in color. All other systems were reviewed and are negative except for the findings mentioned above. PAST MEDICAL HISTORY: As mentioned in the HPI. PAST SURGICAL HISTORY: Cholecystectomy, gluteal abscess, left eye surgery, left great toe bony remov al, right fifth toe partial amputation. PSYCHIATRIC HISTORY: No previous psychiatric history. SOCIAL HISTORY: No drugs. No smoking history. FAMILY HISTORY: Mother diabetes; father, cancer. DRUG ALLERGIES: MORPHINE and PENICILLINS. REPORTED MEDICATIONS: Lisinopril, Levemir, Lipitor. PHYSICAL EXAMINATION: VITAL SIGNS: On presentation, blood pressure 233/93 with heart rate 96, respiratory rate was 19, tem perature 100.7. Pain was 10, oxygen saturation 95% on room air. GENERAL APPEARANCE: Patient is alert, oriented, no acute distress. HEENT: Eyes, normal conjunctivae. Moist oral mucosa. Anicteric. NECK: No JVD. RESPIRATORY: Bilateral air entry. No rales, no wheezing. Symmetrical expansion. CARDIOVASCULAR: Normal rate, regular rhythm. No murmurs, no gallop, no edema. ABDOMEN: Soft, normal bowel sounds. MUSCULOSKELETAL: Patient has baseline range of motion and strength. No tenderness except for the le ft lower extremity that is red, swollen, tender. SKIN: Warm and intact. No pallor, no rash or redness. Peripheral pulses are present. Capillary re fill seems to be intact. NEUROLOGIC: Baseline sensory. No evidence of any focal weakness with slurred speech. Cranial nerve s seem to be intact. The patient has chronic changes from polyneuropathy from diabetes. PSYCHIATRIC: Patient is in good mood. No anxiety. Optimal judgement. IMAGING: X-ray was done of the left leg. No sign of osteo. DVT studies were done and were negative for DVT. LABORATORY DATA: Reviewed. White count 9.6, hemoglobin 13.3, MCV 87, platelet count 223. Chemistry : Sodium 138, potassium 3.9, chloride 103, carbon dioxide 26, anion gap 13, BUN 15, creatinine 0.84, GFR 71, glucose 203. Lactic acid 1.0, calcium 9.7, total bilirubin 0.3, AST 21, ALT 19, alkaline ph osphatase is 102. C-reactive protein is 4.4. Serum total protein 8.1, albumin 3.9, globulin 4.2, al bumin globulin ratio 0.9. Urine was done. The urine color was normal. No evidence of acute infecti on. ASSESSMENT AND PLAN: The patient will be placed in the hospital with following medical problem. 1. Left lower extremity cellulitis, due to redness, tenderness, decreased range of motion due to nishi n, the patient is seen on broad spectrum antibiotics, I will continue for now, follow cultures, adjus t treatment as needed. 2. Uncontrolled hypertension. Blood pressure 190 systolic, no clear triggers, no alleviating factor s, reconcile home meds, adjust treatment as needed. 3. Possible sepsis, recorded heart rate was 102, patient has also fever, we will start the patient o n antibiotics, continue hydration, adjust treatment as needed. 4. Uncontrolled diabetes with hyperglycemia, blood sugar 203, reconcile home meds, sliding scale for optimal control, is lightly worsened by sepsis. 5. Deep venous thrombosis prophylaxis. 6. Morbid obesity. Advice to lose weight.
[2018-03-21] MEDS ORDERED: Loperamide HCl 2 MG CAP PO PRN (07:25)
[2018-03-21] MEDS ORDERED: hydrALAZINE 20 MG/ML VIAL SLOW IVP PRN (07:25)
[2018-03-21] MEDS ORDERED: Zolpidem Tartrate 5 MG TAB PO PRN (07:25)
[2018-03-21] MEDS ORDERED: Artificial Tears 18 DROP/0.9 ML EA EYE PRN (07:25)
[2018-03-21] MEDS ORDERED: Senokot 8.6 MG TAB PO PRN (07:25)
[2018-03-21] MEDS ORDERED: Loratadine 10 MG TAB PO PRN (07:25)
[2018-03-21] MEDS ORDERED: Milk Of Magnesia 30 ML UDCUP PO PRN (07:25)
[2018-03-21] MEDS ORDERED: Diabetic Tussin 200 MG/10 ML UDCUP PO PRN (07:25)
[2018-03-21] MEDS ORDERED: Sodium Chloride 0.65% Nasal 44 ML BOT EA NARE PRN (07:25)
[2018-03-21] MEDS ORDERED: Eucerin (Mineral Oil/Petrolatum,White) 30 gm Jar TOP PRN (07:25)
[2018-03-21] MEDS ORDERED: Chloraseptic Spray 180 ml Bottle PO PRN (07:25)
[2018-03-21] MEDS ORDERED: Vancomycin HCl 1 GM in Premix Bag 1 BAG IVPB SCH (08:00)
[2018-03-21] MEDS: Enoxaparin Sodium 40 MG/0.4 ML SYRINGE SC SCH (08:48)
[2018-03-21] MEDS: Atorvastatin Calcium 20 MG TAB PO SCH (08:50)
[2018-03-21] MEDS: Famotidine 20 MG TAB PO SCH (08:50)
[2018-03-21] MEDS: Saccharomyces boulardii 250 MG CAP PO SCH (08:50)
[2018-03-21] MEDS: Carvedilol 3.125 MG TAB PO SCH (08:50)
[2018-03-21] MEDS: Sodium Chloride 0.9% 1,000 ML IV SCH (08:51)
[2018-03-21] MEDS ORDERED: Non-Formulary Item 1 EACH (Insulin Detemir 100 Units/Ml [Levemir] 25 UNITS) SC SCH ×2 (09:00→21:00)
[2018-03-21] MEDS ORDERED: Non-Formulary Item 1 EACH (Ranitidine Hcl [Ranitidine Hcl] 300 MG) PO SCH (09:00)
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
[2018-03-21] MEDS: Insulin Glargine 25 UNITS in Pre-Filled Syringe 1 EACH SC SCH (10:50)
[2018-03-21] MEDS: Acetaminophen 325 MG TAB PO PRN ×2 (11:10→20:52)
[2018-03-21 19:15] LABS: Vancomycin, Trough 21.6 ug/mL
[2018-03-21] MEDS: Vancomycin HCl 1.25 GM in Sodium Chloride 0.9% 250 ML 250 ML IVPB SCH (20:49)
[2018-03-21] MEDS: HumaLOG 300 UNITS/3 ML VIAL SC PRN (20:55)
[2018-03-22] MEDS: Vancomycin HCl 1.25 GM in Sodium Chloride 0.9% 250 ML 250 ML IVPB SCH ×3 (04:00→20:54)
[2018-03-22] MEDS: traMADol HCl 50 MG TAB PO PRN (08:00)
[2018-03-22] MEDS: Ketorolac Tromethamine 30 MG/ML VIAL IVP PRN ×2 (08:45→14:40)
[2018-03-22] MEDS: Carvedilol 3.125 MG TAB PO SCH (09:00)
[2018-03-22] MEDS: Famotidine 20 MG TAB PO SCH (09:00)
[2018-03-22] MEDS: Atorvastatin Calcium 20 MG TAB PO SCH (09:00)
[2018-03-22] MEDS: Sodium Chloride 0.9% 1,000 ML IV SCH (11:51)
[2018-03-22] MEDS: Saccharomyces boulardii 250 MG CAP PO SCH (11:52)
[2018-03-22] MEDS: Enoxaparin Sodium 40 MG/0.4 ML SYRINGE SC SCH (11:52)
[2018-03-22] MEDS: Insulin Glargine 25 UNITS in Pre-Filled Syringe 1 EACH SC SCH (13:50)
--- NOTE | 2018-03-22 14:41 | PDOC.PN ---
- Subjective Encounter Start Date: 03/22/18 Encounter Start Time: 09:30 pt has more pain on left leg, no fever Patient seen and examined. No overnight events - Objective Resuscitation Status: Resuscitation Status FULL:Full Resuscitation MAR Reviewed: Yes Vital Signs & Weight: Weight Admit Weight 300 lb Weight 300 lb I&O: 03/21/18 03/22/18 03/23/18 06:59 06:59 06:59 Intake Total 1200 Balance 1200 Result Diagrams: 03/21/18 04:36 03/21/18 04:36 Additional Labs: Accuchecks 03/21/18 20:54 POC Glucose 209 H Phys Exam - Physical Examination Constitutional: NAD HEENT: PERRLA, moist MMs, sclera anicteric Neck: no JVD, supple Respiratory: no wheezing, no rales, no rhonchi Cardiovascular: RRR, no significant murmur, no rub Gastrointestinal: soft, non-tender, no distention, positive bowel sounds Musculoskeletal: no edema, pulses present left leg cellulitis improving Neurological: non-focal, normal sensation, moves all 4 limbs Psychiatric: normal affect, A&O x 3 Skin: no rash, normal turgor Dx/Plan (1) Cellulitis of left lower extremity Code(s): L03.116 - CELLULITIS OF LEFT LOWER LIMB Status: Acute (2) Toe fracture, left Code(s): S92.912A - UNSP FRACTURE OF LEFT TOE(S), INIT FOR CLOS FX Status: Acute Qualifiers: Fracture healing: with routine healing (3) Diabetes type 2, controlled Code(s): E11.9 - TYPE 2 DIABETES MELLITUS WITHOUT COMPLICATIONS Status: Chronic (4) GERD (gastroesophageal reflux disease) Code(s): K21.9 - GASTRO-ESOPHAGEAL REFLUX DISEASE WITHOUT ESOPHAGITIS Status: Chronic (5) Glaucoma Code(s): H40.9 - UNSPECIFIED GLAUCOMA Status: Chronic Qualifiers: Glaucoma type: primary angle-closure Primary angle closure glaucoma type: chronic Laterality: left Glaucoma stage: stage unspecified Qualified Code( s): H40.2220 - Chronic angle-closure glaucoma, left eye, stage unspecified (6) Hypertension Code(s): I10 - ESSENTIAL (PRIMARY) HYPERTENSION Status: Chronic Qualifiers: (7) Morbid obesity with BMI of 50.0-59.9, adult Code(s): E66.01 - MORBID (SEVERE) OBESITY DUE TO EXCESS CALORIES; Z68.43 - BODY MASS INDEX (BMI) 50-59.9, ADULT Status: Chronic - Plan cont current plan of care, plan discussed w/ family, continue antibiotics * for pain control, add IV toradol prn * continue vancomycin and levaquin * medication reviewed as below * symptomatic treatment * discussed with * follow culture * increase lantus to 30 unit sc bid. Review of Systems - Review of Systems Eyes: negative: Pain, Vision Change, Conjunctivae Inflammation, Eyelid Inflammation, Redness, Other ENT: negative: Ear Pain, Ear Discharge, Nose Pain, Nose Discharge, Nose Congestion, Mouth Pain, Mouth Swelling, Throat Pain, Throat Swelling, Other Respiratory: negative: Cough, Dry, Shortness of Breath, Hemoptysis, SOB with Excertion, Pleuritic Pain, Sputum, Wheezing Cardiovascular: negative: chest pain, palpitations, orthopnea, paroxysmal nocturnal dyspnea, edema, light headedness, other Gastrointestinal: negative: Nausea, Vomiting, Abdominal Pain, Diarrhea, Constipation, Melena, Hematochezia, Other Genitourinary: negative: Dysuria, Frequency, Incontinence, Hematuria, Retention , Other Musculoskeletal: Leg Pain. negative: Neck Pain, Shoulder Pain, Arm Pain, Back Pain, Hand Pain, Foot Pain, Other Skin: negative: Rash, Lesions, Ibrahima, Bruising, Other - Medications/Allergies Allergies/Adverse Reactions: Allergies Allergy/AdvReac Type Severity Reaction Status Date / Time morphine Allergy Intermediate ITCHING, Verified 03/20/18 22:01 RASH Penicillins Allergy Hives Verified 03/20/18 22:01 Medications: Current Medications Acetaminophen (Tylenol) 650 mg PO Q4H PRN PRN Reason: Headache/Fever/Mild Pain (1-3) Last Admin: 03/21/18 20:52 Dose: 650 mg Artificial Tears (Tears Naturale) 0 drop EA EYE PRN PRN PRN Reason: Dry Eyes Atorvastatin Calcium (Lipitor) 20 mg PO DAILY [facility] Last Admin: 03/22/18 09:00 Dose: 20 mg Calcium Carbonate (Tums) 1,000 mg PO Q4H PRN PRN Reason: Heartburn or Indigestion Carvedilol (Coreg) 3.125 mg PO DAILY [facility] Last Admin: 03/22/18 09:00 Dose: 3.125 mg Cholecalciferol (Vitamin D3) 1,000 units PO DAILY [facility] Last Admin: 03/22/18 09:00 Dose: 1,000 units Dextrose/Water (Dextrose 50%) 25 gm SLOW IVP PRN PRN PRN Reason: Hypoglycemia Enoxaparin Sodium (Lovenox) 40 mg SC 0900 [facility] Last Admin: 03/22/18 11:52 Dose: 40 mg Famotidine (Pepcid) 40 mg PO DAILY [facility] Last Admin: 03/22/18 09:00 Dose: 40 mg Glucagon (Glucagon) 1 mg IM PRN PRN PRN Reason: Hypoglycemia Guaifenesin (Robitussin Sf) 200 mg PO Q4H PRN PRN Reason: Cough Hydralazine HCl (Apresoline) 10 mg SLOW IVP Q4H PRN PRN Reason: Systolic BP > 180 Sodium Chloride (Normal Saline 0.9%) 1,000 mls @ 70 mls/hr IV .[id number] [facility] Stop: 03/23/18 08:00 Last Admin: 03/22/18 11:51 Dose: Not Given Dextrose/Water (D5w) 1,000 mls @ 0 mls/hr IV .Q0M PRN PRN Reason: Hypoglycemia Levofloxacin 750 mg/ Device 150 mls @ 100 mls/hr IVPB Q24HR [facility] Last Admin: 03/21/18 22:52 Dose: 150 mls Insulin Glargine 25 units/ (Miscellaneous Medication) 0.25 mls @ 0 mls/hr SC HS [facility] Last Admin: 03/21/18 20:54 Dose: 0.25 mls Insulin Glargine 25 units/ (Miscellaneous Medication) 0.25 mls @ 0 mls/hr SC QAM [facility] Last Admin: 03/21/18 10:50 Dose: 0.25 mls Vancomycin HCl 1.25 gm/ Sodium (Chloride) 250 mls @ 166.667 mls/hr IVPB 0400, 1200,2000 [facility] Last Admin: 03/22/18 11:51 Dose: 250 mls Insulin Human Lispro (Humalog) 0 units SC .MILD SLIDING SCALE PRN PRN Reason: Mild Correctional Scale Last Admin: 03/21/18 20:55 Dose: 3 unit Loperamide HCl (Imodium) 2 mg PO PRN PRN PRN Reason: Diarrhea/Loose Stools Loratadine (Claritin) 10 mg PO DAILYPRN PRN PRN Reason: Sinus Symptoms Magnesium Hydroxide (Milk Of Magnesium) 30 ml PO DAILYPRN PRN PRN Reason: Constipation Mineral Oil/White Petrolatum (Eucerin Cream) 0 gm TOP BIDPRN PRN PRN Reason: Dry Skin Miscellaneous Medication (Pharmacy To Dose) 1 each IVPB PRN PRN PRN Reason: Pharmacy to dose Ondansetron HCl (Zofran) 4 mg IVP Q6H PRN PRN Reason: Nausea/Vomiting Stop: 03/24/18 08:00 Ondansetron HCl (Zofran Odt) 4 mg SL Q6H PRN PRN Reason: Nausea/Vomiting Stop: 03/25/18 08:00 Phenol (Chloraseptic [place] 180 Ml Bot) 0 ml PO PRN PRN PRN Reason: Sore Throat Polyethylene Glycol (Miralax) 17 gm PO PRN PRN PRN Reason: Constipation Saccharomyces Boulardii (Florastor) 250 mg PO DAILY [facility] Last Admin: 03/22/18 11:52 Dose: 250 mg Senna (Senokot) 2 tab PO HSPRN PRN PRN Reason: Constipation Sodium Chloride (Flush - Normal Saline) 10 ml IVF PRN PRN PRN Reason: Saline Flush Sodium Chloride ([place] Nasal [place] 0.65%) 0 ml EA NARE QIDPRN PRN PRN Reason: Nasal Congestion Tramadol HCl (Ultram) 50 mg PO Q6H PRN PRN Reason: Moderate Pain (4-6) Last Admin: 03/22/18 08:00 Dose: 50 mg Zolpidem Tartrate (Ambien) 5 mg PO HSPRN PRN PRN Reason: Insomnia
[2018-03-22] MEDS: HumaLOG 300 UNITS/3 ML VIAL SC PRN (18:38)
[2018-03-22 19:35] LABS: Vancomycin, Trough 20.5 ug/mL
[2018-03-22] MEDS: Insulin Glargine 30 UNITS in Pre-Filled Syringe 1 EACH SC SCH (20:39)
[2018-03-22] MEDS ORDERED: Insulin Glargine 30 UNITS in Pre-Filled Syringe 1 EACH SC SCH (21:00)
[2018-03-23] MEDS: Ketorolac Tromethamine 30 MG/ML VIAL IVP PRN ×2 (00:01→20:28)
[2018-03-23] MEDS: Vancomycin HCl 1.25 GM in Sodium Chloride 0.9% 250 ML 250 ML IVPB SCH ×3 (04:10→20:28)
[2018-03-23 05:15] LABS: #Eosinphils 0.1 thou/uL (0.0-0.7); #Lymphocytes 1.4 thou/uL (1.20-3.40); #Monocytes 0.5 thou/uL (0.11-0.59); #Neutrophils 2.6 thou/uL (1.40-6.50); %Basophils 0.3 % (0.0-1.0); %Eosinophils 2.6 % (0.0-10.0); %Lymphocytes 30.6 % (21.0-51.0); %Neutrophils 56.5 % (42.0-75.0); Hemoglobin 12.1 g/dL (12.0-16.0); Mean Corpuscular HGB CONC 33.6 g/dL (32.0-36.0); Mean Corpuscular Hemoglobin 29.4 pg (27.0-31.0); Mean Corpuscular Volume 87.6 fL (78.0-98.0); Mean Platelet Volume 9.1 fL (7.4-10.4); Platelet Count 214 thou/uL (130-400); RBC Distribution Width 11.9 % (11.5-14.5); Red Blood Cell (RBC) Count 4.11 mill/uL (4.20-5.40); White Blood Cell (WBC) Count 4.6 thou/uL (4.8-10.8)
[2018-03-23 05:34] LABS: Anion Gap 9 mmol/L (10-20); BUN (Urea Nitrogen) 13 mg/dL (9.8-20.1); CRP (Inflammatory) 3.55 mg/dL (= or < 0.5); Calc. Creatinine Clearance 170 mL/min (70-130); Calcium 9.1 mg/dL (7.8-10.44); Carbon Dioxide 27 mmol/L (22-29); Chloride 106 mmol/L (98-107); Estimated GFR-MDRD 73; Glucose 172 mg/dL (70-105); Sodium 138 mmol/L (136-145)
[2018-03-23] MEDS: Carvedilol 3.125 MG TAB PO SCH (07:57)
[2018-03-23] MEDS: Famotidine 20 MG TAB PO SCH (07:57)
[2018-03-23] MEDS: Atorvastatin Calcium 20 MG TAB PO SCH (07:57)
[2018-03-23] MEDS: Saccharomyces boulardii 250 MG CAP PO SCH (07:57)
[2018-03-23] MEDS: Insulin Glargine 30 UNITS in Pre-Filled Syringe 1 EACH SC SCH ×2 (07:58→20:28)
[2018-03-23] MEDS: Enoxaparin Sodium 40 MG/0.4 ML SYRINGE SC SCH (07:58)
[2018-03-23] MEDS ORDERED: Insulin Glargine 30 UNITS in Pre-Filled Syringe 1 EACH SC SCH (09:00)
[2018-03-23] MEDS: HumaLOG 300 UNITS/3 ML VIAL SC PRN (11:20)
[2018-03-23] MEDS: Acetaminophen 325 MG TAB PO PRN (12:34)
--- NOTE | 2018-03-23 14:19 | PDOC.PN ---
- Subjective Encounter Start Date: 03/23/18 Encounter Start Time: 12:30 Subjective: pt up in bed complains of pain to her left calf - Objective Resuscitation Status: Resuscitation Status FULL:Full Resuscitation Vital Signs & Weight: Vital Signs (12 hours) Temp Pulse Resp BP BP Pulse Ox 03/23/18 08:00 95 03/23/18 07:31 98.6 F 84 16 159/81 H 95 03/23/18 04:00 98.4 F 73 18 164/83 H 93 L Weight Admit Weight 300 lb Weight 300 lb I&O: 03/22/18 03/23/18 03/24/18 06:59 06:59 06:59 Intake Total 1200 Balance 1200 Result Diagrams: 03/23/18 04:42 03/23/18 04:42 Additional Labs: Accuchecks 03/23/18 03/23/18 03/22/18 11:18 04:23 20:38 POC Glucose 227 H 161 H 269 H 03/22/18 03/22/18 16:09 11:32 POC Glucose 215 H 210 H Phys Exam - Physical Examination Neck: no nodes, no JVD, supple, full ROM Respiratory: no wheezing, no rales, no rhonchi, wheezing present, clear to auscultation bilateral Cardiovascular: RRR, no significant murmur, no rub, gallop, irregular Gastrointestinal: soft, non-tender, no distention, positive bowel sounds Musculoskeletal: edema present left calf mild tenderenss and mild erythema Dx/Plan (1) Cellulitis of left lower extremity Code(s): L03.116 - CELLULITIS OF LEFT LOWER LIMB Status: Acute (2) Diabetes type 2, controlled Code(s): E11.9 - TYPE 2 DIABETES MELLITUS WITHOUT COMPLICATIONS Status: Chronic (3) Morbid obesity with BMI of 50.0-59.9, adult Code(s): E66.01 - MORBID (SEVERE) OBESITY DUE TO EXCESS CALORIES; Z68.43 - BODY MASS INDEX (BMI) 50-59.9, ADULT Status: Chronic - Plan doppler is negative for dvt -: pt on levaquin and vanco -: will get arterial doppler bilaterally * . Review of Systems - Review of Systems Respiratory: negative: Cough, Dry, Shortness of Breath, Hemoptysis, SOB with Excertion, Pleuritic Pain, Sputum, Wheezing Cardiovascular: negative: chest pain, palpitations, orthopnea, paroxysmal nocturnal dyspnea, edema, light headedness, other Gastrointestinal: negative: Nausea, Vomiting, Abdominal Pain, Diarrhea, Constipation, Melena, Hematochezia, Other Musculoskeletal: Leg Pain - Medications/Allergies Allergies/Adverse Reactions: Allergies Allergy/AdvReac Type Severity Reaction Status Date / Time morphine Allergy Intermediate ITCHING, Verified 03/20/18 22:01 RASH Penicillins Allergy Hives Verified 03/20/18 22:01 Medications: Current Medications Acetaminophen (Tylenol) 650 mg PO Q4H PRN PRN Reason: Headache/Fever/Mild Pain (1-3) Last Admin: 03/23/18 12:34 Dose: 650 mg Artificial Tears (Tears Naturale) 0 drop EA EYE PRN PRN PRN Reason: Dry Eyes Atorvastatin Calcium (Lipitor) 20 mg PO DAILY [facility] Last Admin: 03/23/18 07:57 Dose: 20 mg Calcium Carbonate (Tums) 1,000 mg PO Q4H PRN PRN Reason: Heartburn or Indigestion Carvedilol (Coreg) 3.125 mg PO DAILY [facility] Last Admin: 03/23/18 07:57 Dose: 3.125 mg Cholecalciferol (Vitamin D3) 1,000 units PO DAILY [facility] Last Admin: 03/23/18 07:58 Dose: 1,000 units Dextrose/Water (Dextrose 50%) 25 gm SLOW IVP PRN PRN PRN Reason: Hypoglycemia Enoxaparin Sodium (Lovenox) 40 mg SC 0900 [facility] Last Admin: 03/23/18 07:58 Dose: 40 mg Famotidine (Pepcid) 40 mg PO DAILY [facility] Last Admin: 03/23/18 07:57 Dose: 40 mg Glucagon (Glucagon) 1 mg IM PRN PRN PRN Reason: Hypoglycemia Guaifenesin (Robitussin Sf) 200 mg PO Q4H PRN PRN Reason: Cough Hydralazine HCl (Apresoline) 10 mg SLOW IVP Q4H PRN PRN Reason: Systolic BP > 180 Dextrose/Water (D5w) 1,000 mls @ 0 mls/hr IV .Q0M PRN PRN Reason: Hypoglycemia Levofloxacin 750 mg/ Device 150 mls @ 100 mls/hr IVPB Q24HR [facility] Last Admin: 03/22/18 23:57 Dose: 150 mls Vancomycin HCl 1.25 gm/ Sodium (Chloride) 250 mls @ 166.667 mls/hr IVPB 0400, 1200,2000 [facility] Last Admin: 03/23/18 11:20 Dose: 250 mls Insulin Glargine 30 units/ (Miscellaneous Medication) 0.3 mls @ 0 mls/hr SC HS [facility] Last Admin: 03/22/18 20:39 Dose: 0.3 mls Insulin Glargine 30 units/ (Miscellaneous Medication) 0.3 mls @ 0 mls/hr SC QAM [facility] Last Admin: 03/23/18 07:58 Dose: 0.3 mls Insulin Human Lispro (Humalog) 0 units SC .MILD SLIDING SCALE PRN PRN Reason: Mild Correctional Scale Last Admin: 03/23/18 11:20 Dose: 3 unit Ketorolac Tromethamine (Toradol) 15 mg IVP Q6H PRN PRN Reason: Pain Stop: 03/27/18 11:48 Last Admin: 03/23/18 00:01 Dose: 15 mg Loperamide HCl (Imodium) 2 mg PO PRN PRN PRN Reason: Diarrhea/Loose Stools Loratadine (Claritin) 10 mg PO DAILYPRN PRN PRN Reason: Sinus Symptoms Magnesium Hydroxide (Milk Of Magnesium) 30 ml PO DAILYPRN PRN PRN Reason: Constipation Mineral Oil/White Petrolatum (Eucerin Cream) 0 gm TOP BIDPRN PRN PRN Reason: Dry Skin Miscellaneous Medication (Pharmacy To Dose) 1 each IVPB PRN PRN PRN Reason: Pharmacy to dose Ondansetron HCl (Zofran) 4 mg IVP Q6H PRN PRN Reason: Nausea/Vomiting Stop: 03/24/18 08:00 Ondansetron HCl (Zofran Odt) 4 mg SL Q6H PRN PRN Reason: Nausea/Vomiting Stop: 03/25/18 08:00 Last Admin: 03/22/18 14:40 Dose: 4 mg Phenol (Chloraseptic [place] 180 Ml Bot) 0 ml PO PRN PRN PRN Reason: Sore Throat Polyethylene Glycol (Miralax) 17 gm PO PRN PRN PRN Reason: Constipation Last Admin: 03/22/18 08:00 Dose: 17 gm Saccharomyces Boulardii (Florastor) 250 mg PO DAILY [facility] Last Admin: 03/23/18 07:57 Dose: 250 mg Senna (Senokot) 2 tab PO HSPRN PRN PRN Reason: Constipation Last Admin: 03/22/18 20:40 Dose: 2 tab Sodium Chloride (Flush - Normal Saline) 10 ml IVF PRN PRN PRN Reason: Saline Flush Last Admin: 03/23/18 07:58 Dose: 10 ml Sodium Chloride ([place] Nasal [place] 0.65%) 0 ml EA NARE QIDPRN PRN PRN Reason: Nasal Congestion Tramadol HCl (Ultram) 50 mg PO Q6H PRN PRN Reason: Moderate Pain (4-6) Last Admin: 03/22/18 08:00 Dose: 50 mg Zolpidem Tartrate (Ambien) 5 mg PO HSPRN PRN PRN Reason: Insomnia
--- NOTE | 2018-03-23 17:01 | ULT ---
BILATERAL LOWER EXTREMITY ARTERIAL DOPPLER EXAM: HISTORY: Diabetic. Left lower extremity pain with wounds to both feet. RIGHT SIDE PEAK SYSTOLIC VELOCITY COMMON FEMORAL ARTERY 161 cm per second PROFUNDA FEMORAL ARTERY: 115 cm per second PROXIMAL SUPERFICIAL FEMORAL ARTERY: 158 cm per second MID: 180 cm per second DISTAL: 126 cm per second POPLITEAL: 74 cm per second ANTERIOR TIBIAL: 71 cm per second POSTERIOR TIBIAL: 45 cm per second DORSALIS PEDIS: 173 cm per second LEFT SIDE PEAK SYSTOLIC VELOCITY COMMON FEMORAL ARTERY 115 cm per second PROFUNDA FEMORAL ARTERY: 74 cm per second PROXIMAL SUPERFICIAL FEMORAL ARTERY: 121 cm per second MID: 162 cm per second DISTAL: 113 cm per second POPLITEAL: 116 cm per second ANTERIOR TIBIAL: 96 cm per second POSTERIOR TIBIAL: 57 cm per second DORSALIS PEDIS: 72 cm per second Biphasic wave-form patterns are seen bilaterally. IMPRESSION: 1. Elevated velocities in the right common femoral artery, suggesting some proximal disease. In add ition, there is suggestion that there is moderate stenosis of the distal superficial femoral artery, near the level of adductor canal, and markedly elevated dorsalis pedis velocities. 2. On the left side, there are findings that would suggest moderate areas of stenosis along the cour se of the superficial femoral artery. POS: LAURA
[2018-03-24] MEDS: Vancomycin HCl 1.25 GM in Sodium Chloride 0.9% 250 ML 250 ML IVPB SCH ×2 (04:00→11:25)
[2018-03-24] MEDS: Insulin Glargine 30 UNITS in Pre-Filled Syringe 1 EACH SC SCH ×2 (08:35→21:50)
[2018-03-24] MEDS: Enoxaparin Sodium 40 MG/0.4 ML SYRINGE SC SCH (08:35)
[2018-03-24] MEDS: Saccharomyces boulardii 250 MG CAP PO SCH (08:36)
[2018-03-24] MEDS: Carvedilol 3.125 MG TAB PO SCH (08:36)
[2018-03-24] MEDS: Atorvastatin Calcium 20 MG TAB PO SCH (08:36)
[2018-03-24] MEDS: Famotidine 20 MG TAB PO SCH (08:36)
[2018-03-24] MEDS: Lisinopril 2.5 MG TAB PO SCH (10:44)
[2018-03-24] MEDS: Acetaminophen 325 MG TAB PO PRN (10:46)
[2018-03-24] MEDS: HumaLOG 300 UNITS/3 ML VIAL SC PRN (11:27)
[2018-03-24 11:34] LABS: Vancomycin, Trough 33.3 ug/mL
--- NOTE | 2018-03-24 13:57 | CON ---
DATE OF CONSULTATION: 03/24/2018 HISTORY OF PRESENT ILLNESS: This is a 52-year-old female admitted with a second episode of celluliti s in the left leg this year. She stated she began having some discomfort in the left lower leg 3 day s ago, and 2 days ago, became severely uncomfortable with fever and she presented to the hospital whe re she was noted to have an edematous leg with cellulitis. She has responded to antibiotics. She mcconnell d an ultrasound of her lower extremity showing no DVT and another ultrasound suggesting moderate mau pheral arterial disease with peak velocities in the left leg of about 160 cm per second. Cardiovascular risk factors include diabetes mellitus, for which she takes insulin. She is a nonsmok er and has no other notable medical problems other than morbid obesity with a recorded weight of 300 pounds and a height of 5 feet 2 inches to go along with that. 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 Chan in the past. PHYSICAL EXAMINATION: GENERAL: On examination today, she is an alert, cooperative lady, mobile. NECK EXAMINATION: No carotid bruits. CARDIAC EXAM: Regular rate and rhythm. No murmurs. LUNGS: Clear to auscultation. ABDOMEN: Obese, nontender with panniculus does drape over her groin areas. EXTREMITIES: She has easily palpable dorsalis pedis pulses bilaterally and I do not palpate posterio r tibial pulses. She has ulcerated callus on the tip of her toe on each foot. She has some skin lorrie nges in the left lower leg, consistent with chronic venous insufficiency, although today, has no tray a, no cellulitis. The patient had normal angiograms of the right lower extremity last year at the time of cardiac will terization through the radial artery. Examination today suggests a well-preserved arterial vascular supply to the feet. Her amputations were likely related to pressure ulcerations, callus breakdown, a nd infection, which is also a possibility in the remaining toes. Her cellulitis is probably related to edema, chronic venous insufficiency, and multiple sites of skin entry point for bacteria in her fe et. At this time, I have answered all of her questions and she needs no further evaluation for perip heral arterial disease at this time.
--- NOTE | 2018-03-24 16:33 | PDOC.PN ---
- Subjective Encounter Start Date: 03/24/18 Encounter Start Time: 12:15 Subjective: pt up in chair still has pain to her left lower calf area - Objective Resuscitation Status: Resuscitation Status FULL:Full Resuscitation Vital Signs & Weight: Vital Signs (12 hours) Temp Pulse Resp BP Pulse Ox 03/24/18 10:44 80 03/24/18 08:00 94 L 03/24/18 07:26 98.9 F 80 16 159/77 H 94 L Weight Admit Weight 300 lb Weight 300 lb Result Diagrams: 03/23/18 04:42 03/23/18 04:42 Additional Labs: Accuchecks 03/24/18 03/24/18 03/23/18 11:25 04:52 20:18 POC Glucose 241 H 198 H 259 H Phys Exam - Physical Examination Neck: no nodes, no JVD, supple, full ROM Respiratory: no wheezing, no rales, no rhonchi, wheezing present, clear to auscultation bilateral Cardiovascular: RRR, no significant murmur, no rub, gallop, irregular Gastrointestinal: soft, non-tender, no distention, positive bowel sounds Musculoskeletal: edema present Dx/Plan (1) Cellulitis of left lower extremity Code(s): L03.116 - CELLULITIS OF LEFT LOWER LIMB Status: Acute (2) Diabetes type 2, controlled Code(s): E11.9 - TYPE 2 DIABETES MELLITUS WITHOUT COMPLICATIONS Status: Chronic (3) Morbid obesity with BMI of 50.0-59.9, adult Code(s): E66.01 - MORBID (SEVERE) OBESITY DUE TO EXCESS CALORIES; Z68.43 - BODY MASS INDEX (BMI) 50-59.9, ADULT Status: Chronic - Plan pt's arterial doppler indicated moderate stenosis on femoral -: superfical artery. will consult CV especially since pt is having too -: much pain to her left calf area. * . Review of Systems - Review of Systems Respiratory: negative: Cough, Dry, Shortness of Breath, Hemoptysis, SOB with Excertion, Pleuritic Pain, Sputum, Wheezing Cardiovascular: negative: chest pain, palpitations, orthopnea, paroxysmal nocturnal dyspnea, edema, light headedness, other Gastrointestinal: negative: Nausea, Vomiting, Abdominal Pain, Diarrhea, Constipation, Melena, Hematochezia, Other Genitourinary: negative: Dysuria, Frequency, Incontinence, Hematuria, Retention , Other Musculoskeletal: Leg Pain - Medications/Allergies Allergies/Adverse Reactions: Allergies Allergy/AdvReac Type Severity Reaction Status Date / Time morphine Allergy Intermediate ITCHING, Verified 03/20/18 22:01 RASH Penicillins Allergy Hives Verified 03/20/18 22:01 Medications: Current Medications Acetaminophen (Tylenol) 650 mg PO Q4H PRN PRN Reason: Headache/Fever/Mild Pain (1-3) Last Admin: 03/24/18 10:46 Dose: 650 mg Artificial Tears (Tears Naturale) 0 drop EA EYE PRN PRN PRN Reason: Dry Eyes Atorvastatin Calcium (Lipitor) 20 mg PO DAILY [facility] Last Admin: 03/24/18 08:36 Dose: 20 mg Calcium Carbonate (Tums) 1,000 mg PO Q4H PRN PRN Reason: Heartburn or Indigestion Carvedilol (Coreg) 3.125 mg PO DAILY [facility] Last Admin: 03/24/18 08:36 Dose: 3.125 mg Cholecalciferol (Vitamin D3) 1,000 units PO DAILY [facility] Last Admin: 03/24/18 08:36 Dose: 1,000 units Dextrose/Water (Dextrose 50%) 25 gm SLOW IVP PRN PRN PRN Reason: Hypoglycemia Enoxaparin Sodium (Lovenox) 40 mg SC 0900 [facility] Last Admin: 03/24/18 08:35 Dose: 40 mg Famotidine (Pepcid) 40 mg PO DAILY [facility] Last Admin: 03/24/18 08:36 Dose: 40 mg Glucagon (Glucagon) 1 mg IM PRN PRN PRN Reason: Hypoglycemia Guaifenesin (Robitussin Sf) 200 mg PO Q4H PRN PRN Reason: Cough Hydralazine HCl (Apresoline) 10 mg SLOW IVP Q4H PRN PRN Reason: Systolic BP > 180 Dextrose/Water (D5w) 1,000 mls @ 0 mls/hr IV .Q0M PRN PRN Reason: Hypoglycemia Levofloxacin 750 mg/ Device 150 mls @ 100 mls/hr IVPB Q24HR [facility] Last Admin: 03/23/18 23:27 Dose: 150 mls Insulin Glargine 30 units/ (Miscellaneous Medication) 0.3 mls @ 0 mls/hr SC HS [facility] Last Admin: 03/23/18 20:28 Dose: 0.3 mls Insulin Glargine 30 units/ (Miscellaneous Medication) 0.3 mls @ 0 mls/hr SC QAM [facility] Last Admin: 03/24/18 08:35 Dose: 0.3 mls Vancomycin HCl 1.25 gm/ Sodium (Chloride) 250 mls @ 166.667 mls/hr IVPB .PENDING LEVEL [facility] Insulin Human Lispro (Humalog) 0 units SC .MILD SLIDING SCALE PRN PRN Reason: Mild Correctional Scale Last Admin: 03/24/18 11:27 Dose: 3 unit Ketorolac Tromethamine (Toradol) 15 mg IVP Q6H PRN PRN Reason: Pain Stop: 03/27/18 11:48 Last Admin: 03/23/18 20:28 Dose: 15 mg Lisinopril (Zestril) 2.5 mg PO DAILY [facility] Last Admin: 03/24/18 10:44 Dose: 2.5 mg Loperamide HCl (Imodium) 2 mg PO PRN PRN PRN Reason: Diarrhea/Loose Stools Loratadine (Claritin) 10 mg PO DAILYPRN PRN PRN Reason: Sinus Symptoms Magnesium Hydroxide (Milk Of Magnesium) 30 ml PO DAILYPRN PRN PRN Reason: Constipation Last Admin: 03/23/18 20:28 Dose: 30 ml Mineral Oil/White Petrolatum (Eucerin Cream) 0 gm TOP BIDPRN PRN PRN Reason: Dry Skin Miscellaneous Medication (Pharmacy To Dose) 1 each IVPB PRN PRN PRN Reason: Pharmacy to dose Ondansetron HCl (Zofran Odt) 4 mg SL Q6H PRN PRN Reason: Nausea/Vomiting Stop: 03/25/18 08:00 Last Admin: 03/22/18 14:40 Dose: 4 mg Phenol (Chloraseptic [place] 180 Ml Bot) 0 ml PO PRN PRN PRN Reason: Sore Throat Polyethylene Glycol (Miralax) 17 gm PO PRN PRN PRN Reason: Constipation Last Admin: 03/22/18 08:00 Dose: 17 gm Saccharomyces Boulardii (Florastor) 250 mg PO DAILY [facility] Last Admin: 03/24/18 08:36 Dose: 250 mg Senna (Senokot) 2 tab PO HSPRN PRN PRN Reason: Constipation Last Admin: 03/22/18 20:40 Dose: 2 tab Sodium Chloride (Flush - Normal Saline) 10 ml IVF PRN PRN PRN Reason: Saline Flush Last Admin: 03/24/18 08:36 Dose: 10 ml Sodium Chloride ([place] Nasal [place] 0.65%) 0 ml EA NARE QIDPRN PRN PRN Reason: Nasal Congestion Tramadol HCl (Ultram) 50 mg PO Q6H PRN PRN Reason: Moderate Pain (4-6) Last Admin: 03/22/18 08:00 Dose: 50 mg Zolpidem Tartrate (Ambien) 5 mg PO HSPRN PRN PRN Reason: Insomnia
[2018-03-24] MEDS: traMADol HCl 50 MG TAB PO PRN (21:49)
[2018-03-24] MEDS: Calcium Carbonate 500 MG ChewTAB PO PRN (22:00)
--- NOTE | 2018-03-24 22:19 | ULT ---
ULTRASOUND OF LEFT CALF: History: Calf pain and swelling. FINDINGS: Real-time imaging of the area of concern shows some soft tissue edema but no signs of any underlying fluid collection. IMPRESSION: No evidence of abscess or mass. No fluid collection. POS: LAURA
[2018-03-24 23:40] LABS: Vancomycin, Random 18.7 ug/mL (See Comment)
[2018-03-24] MEDS ORDERED: Vancomycin HCl 1.25 GM in Sodium Chloride 0.9% 250 ML 250 ML IVPB SCH (23:59)
[2018-03-25] MEDS: Calcium Carbonate 500 MG ChewTAB PO PRN (01:48)
[2018-03-25] MEDS: Vancomycin HCl 1 GM in Premix Bag 1 BAG IVPB SCH ×2 (01:48→12:30)
[2018-03-25 07:23] VITALS: BP 168/88; TEMP 98.4
[2018-03-25] MEDS: Atorvastatin Calcium 20 MG TAB PO SCH (08:28)
[2018-03-25] MEDS: Insulin Glargine 30 UNITS in Pre-Filled Syringe 1 EACH SC SCH (08:28)
[2018-03-25] MEDS: Saccharomyces boulardii 250 MG CAP PO SCH (08:28)
[2018-03-25] MEDS: Famotidine 20 MG TAB PO SCH (08:28)
[2018-03-25] MEDS: Carvedilol 3.125 MG TAB PO SCH (08:28)
[2018-03-25] MEDS: Enoxaparin Sodium 40 MG/0.4 ML SYRINGE SC SCH (08:28)
[2018-03-25] MEDS: Lisinopril 2.5 MG TAB PO SCH (08:52)
--- NOTE | 2018-03-25 15:01 | PQF ---
CLINICAL DOCUMENTATION IMPROVEMENT CLARIFICATION FORM: ICD-10 Updated PLEASE DO AN ADDENDUM TO THE PROGRESS NOTE WITH ANY DOCUMENTATION UPDATES OR ADDITIONS AND CARRY THROUGH TO DC SUMMARY. THANK YOU. DATE: 03/25/18 ATTN: Dr. Barrios Please exercise your independent, professional judgment in responding to the clarification form. Clinical indicators are provided on the bottom of this form for your review Please check appropriate box(s) to clarify if the following diagnosis has been ruled in or ruled out: ___ ___SEPSIS [ x ] Ruled in diagnosis [ x] Continue to treat [ ] Resolved [ ] Ruled out diagnosis [ ] Cannot rule out diagnosis [ ] Other diagnosis [ ] Unable to determine In addition, please specify: Present on Admission (POA): [ x ] Yes [ ] No [ ] Unable to determine For continuity of documentation, please document condition throughout progress notes and discharge summary. Thank You. CLINICAL INDICATORS - SIGNS / SYMPTOMS / LABS H&P 03/20: BP 233/93 HR 96 RESP 19 TEMP. 100.7 POSSIBLE SEPSIS, RECORDED HEART RATE WAS 102, PT HAS ALSO FEVER. UNCONTROLLED DIABETES WITH HYPERGLYCEMIA, BLOOD SUGAR 203, RECONCILE HOME MEDS, SLIDING SCALE FOR OPTIMAL CONTROL, IS LIGHTLY WORSENED BY SEPSIS. RISKS: H&P: LEFT LE CELLULITIS. UNCONTROLLED DIABETES WITH HYPERGLYCEMIA. MORBID OBESITY. TREATMENT: CPOE 03/20: LEVAQUIN 750MG IV Q 24 HR ORDER 03/25: IV VANCOMYCIN 1 GM Thank you, Emilee (This form is maintained as a part of the permanent medical record) 2014 [employer] All Rights Reserved Emilee Mcbride RN, BSN [email or web address] Office: [phone] [facility]
--- NOTE | 2018-03-26 00:56 | DIS ---
DATE OF ADMISSION: 03/21/2018 DATE OF DISCHARGE: 03/25/2018 DISCHARGE DIAGNOSES: 1. Right and left lower extremity cellulitis. 2. Diabetes. 3. Hypertension. HOSPITAL COURSE: The patient is a very pleasant 52-year-old female who initially presented to the [facility] with worsening left-sided lower calf erythema and pain. The patient at that time did have a v ascular ultrasound which did not indicate any signs of DVT in her left lower extremity. The patient also had an arterial ultrasound which indicated moderate areas of stenosis along the course of the tidwell perficial femoral artery and elevated velocities in the right common femoral artery suggesting of alyson e proximal disease. At this time, CV Surgery was consulted since the patient continued to have signi ficant pain in her left calf area. No recommendations or neurosurgical interventions were noted per CV Surgery. The patient also had a soft tissue ultrasound since she has continued to have significan t pain in the calf area, even though the erythema was residing, there was no evidence of abscess or m ass, no fluid collection was noted. The patient at this time was discharged home with 2 antibiotics. She will follow up with her primary care doctor. PHYSICAL EXAMINATION: VITAL SIGNS: 98.4, 68, 18, 92, 168/80. GENERAL: She is awake, alert, oriented x3. Does not appear in any distress. CARDIOVASCULAR: S1, S2 present. No murmurs, rubs or gallops. ABDOMEN: Soft, nontender. Bowel sounds are present x2. Her medications are as of the following; she is going to be on clindamycin 300 mg q.6 hours for 10 da ys, Levaquin 500 mg daily, lisinopril 2.5 daily, Florastor 250 mg daily, carvedilol 3.125 mg daily, r anitidine 300 mg daily, insulin 50 units q.a.m. and 30 units at night, atorvastatin 20 mg daily, and MiraLax 17 grams p.o. daily.
== END 2018-03-25 17:18 | disposition home or self-care (01) | DRG 872 ==
LOC: ERS 18:20 → T4-A 21:35
PROVIDERS: ADMIT Hospitalist; ATTEND Hospitalist
DX: A41.9 Sepsis, unspecified organism (principal); L03.116 Cellulitis of left lower limb; Z68.43 Body mass index [BMI] 50.0-59.9, adult; E66.01 Morbid (severe) obesity due to excess calories; E11.65 Type 2 diabetes mellitus with hyperglycemia; I10 Essential (primary) hypertension; I73.9 Peripheral vascular disease, unspecified; I87.8 Other specified disorders of veins; L97.529 Non-pressure chronic ulcer of other part of left foot with unspecified severity; Z79.899 Other long term (current) drug therapy; Z88.0 Allergy status to penicillin; Z88.5 Allergy status to narcotic agent; Z89.421 Acquired absence of other right toe(s); S92.912A Unspecified fracture of left toe(s), initial encounter for closed fracture; K21.9 Gastro-esophageal reflux disease without esophagitis; H40.9 Unspecified glaucoma
CPT/HCPCS: 36415; 36416; 76999; 80048; 80053; 80202; 81003; 81015; 83605; 85025; 85652; 86140; 87040; 90471; 90686; 93923; 96365; 96367; G0008; J1650; J1885; J1956; J3370; J3490; J7050; Q0162

== ENCOUNTER 2018-06-18 12:11 | Inpatient (IN) | payer BC ==
[2018-06-18 13:15] LABS: #Eosinphils 0.1 thou/uL (0.0-0.7); #Lymphocytes 1.9 thou/uL (1.20-3.40); #Monocytes 0.5 thou/uL (0.11-0.59); #Neutrophils 5.2 thou/uL (1.40-6.50); %Basophils 0.5 % (0.0-1.0); %Eosinophils 1.2 % (0.0-10.0); %Lymphocytes 24.5 % (21.0-51.0); %Monocytes 6.4 % (0.0-10.0); %Neutrophils 67.4 % (42.0-75.0); Hemoglobin 13.2 g/dL (12.0-16.0); Mean Corpuscular HGB CONC 33.8 g/dL (32.0-36.0); Mean Corpuscular Hemoglobin 29.1 pg (27.0-31.0); Platelet Count 196 thou/uL (130-400); Red Blood Cell (RBC) Count 4.55 mill/uL (4.20-5.40); White Blood Cell (WBC) Count 7.7 thou/uL (4.8-10.8)
[2018-06-18 13:35] LABS: ALT (SGPT) 14 U/L (8-55); AST (SGOT) 11 U/L (5-34); Albumin 3.6 g/dL (3.5-5.0); Alkaline Phosphatase 115 U/L (40-150); Anion Gap 13 mmol/L (10-20); BUN (Urea Nitrogen) 24 mg/dL (9.8-20.1); Bilirubin, Total 0.3 mg/dL (0.2-1.2); Calc. Creatinine Clearance 0 mL/min (70-130); Calcium 9.6 mg/dL (7.8-10.44); Carbon Dioxide 24 mmol/L (22-29); Chloride 103 mmol/L (98-107); Estimated GFR-MDRD 64; Globulin 3.7 g/dL (2.4-3.5); Glucose 281 mg/dL (70-105); Protein, Total 7.3 g/dL (6.0-8.3); Sodium 136 mmol/L (136-145)
--- NOTE | 2018-06-18 14:04 | RAD ---
RIGHT FOOT THREE VIEWS: History: Sore to little toe. Diabetes. Comparison: 02-26-17 FINDINGS: There is progressive loss of cortex of the proximal phalanx neck of the small toe. Chronic osteomyeli tis of the 2nd and 1st metatarsal phalangeal joints. Bunionectomy changes of the great toe. There is valgus angulation of the great toe metatarsal phalangeal joint. Chronic widening of the lisfranc interval. Severe midfoot degenerative disease. Flatfoot deformity. Old fracture of the small toe metatarsal diaphysis. There is moderate degenerative disease of the ank le joint. IMPRESSION: 1. Findings suggest chronic osteomyelitis of the great toe and second toe metatarsal phalangeal joint s. 2. Cortical loss of the neck of the proximal phalanx of the small toe, sequellae of underlying osteom yelitis. There is extensive overlying soft tissue swelling. MRI recommended if clinically warranted. 3. Severe midfoot degenerative disease, likely diabetic neuropathy. POS: TPC
[2018-06-18 15:32] LABS: Bilirubin Negative (Negative); Blood, Urine Negative (Negative); Clarity CLEAR (Clear); Glucose, Urine (Dipstick) >=1000 mg/dL (Negative); Leukocyte Negative (Negative); Nitrite Negative (Negative); Protein, Urine (Dipstick) 30 mg/dL (Neg-Trace); Specific Gravity, Urine 1.027 (1.002-1.036); Urobilinogen 0.2 mg/dL (0.2-1.0)
[2018-06-18 15:34] LABS: Bacteria/HPF None Seen HPF (None Seen); Hyaline Casts/LPF 0-3 HYALINE CAST LPF (0-3 Hyaline); RBC/HPF 0-3 HPF (0-3); Squamous Epithelial 0-3 HPF (0-3); WBC/HPF 0-3 HPF (0-3); Yeast-AUWi Flag 13.2 (0-25.0)
[2018-06-18] MEDS ORDERED: cefTRIAXone\\ROCEPHIN 2 GM VIAL ONE (16:15)
[2018-06-18] MEDS ORDERED: Ondansetron PF 4 MG/2 ML Vial IVP PRN (18:54)
[2018-06-18] MEDS ORDERED: Acetaminophen 650 MG Suppository PR PRN (18:54)
[2018-06-18] MEDS ORDERED: HumaLOG 300 UNITS/3 ML VIAL SC PRN (18:54)
[2018-06-18] MEDS ORDERED: Ondansetron ODT 4 MG TAB PO PRN (18:54)
[2018-06-18] MEDS ORDERED: Dextrose 5% in Water 1,000 ML IV PRN (18:54)
[2018-06-18] MEDS ORDERED: Senokot S 8.6-50 MG TAB PO PRN (18:54)
[2018-06-18] MEDS ORDERED: Dextrose 50% Abboject 50 ML SYRINGE SLOW IVP PRN (18:54)
[2018-06-18] MEDS ORDERED: VANCOMYCIN IVPB PRN (19:06)
[2018-06-18] MEDS ORDERED: Acetaminophen 325 MG TAB ONE (19:26)
[2018-06-18] MEDS ORDERED: Vancomycin HCl 1.5 GM in Sodium Chloride 0.9% 250 ML 300 ML IVPB SCH (19:30)
[2018-06-18] MEDS: Acetaminophen 325 MG TAB PO PRN (21:09)
[2018-06-18] MEDS: Insulin Glargine 50 UNITS in Pre-Filled Syringe 1 EACH SC SCH (21:43)
[2018-06-18] MEDS ORDERED: Famotidine 20 MG TAB ONE (21:48)
[2018-06-18] MEDS: Famotidine 20 MG TAB PO SCH (22:08)
--- NOTE | 2018-06-19 01:59 | HP ---
PRIMARY CARE PHYSICIAN: Dr. Tanner. CHIEF COMPLAINT: Pain, redness, and sore on foot. HISTORY OF PRESENT ILLNESS: This is a 53-year-old female with known history of poorly controlled diabetes mellitus, on insulin. Blood sugars typically run in the 200s to 300s. She reports that she wore some shoes that were too tight about a week or two ago and developed sore lateral to the right fifth metatarsal head. The patient reports that she was doing some activities over the last couple of days and she had a child step on her foot, which made it worse. She had also been doing a lot of walking over the last couple of weeks. She started having pain in her right ankle and swelling and noticed some redness around the sore on her lateral foot, so she came in to be evaluated. In the emergency room, she had an x-ray that showed osteomyelitis likely of her fifth toe. She actually had distal phalanges surgically removed previously. They spoke to Dr. Macias, who recommended either close followup with Podiatry, which they were not able to obtain or admission for surgical consultation and IV antibiotics. He recommended Rocephin and vancomycin. PAST MEDICAL HISTORY: 1. Diabetes mellitus type 2, insulin dependent, poorly controlled. 2. Hypertension. 3. Glaucoma with left eye now blind. 4. Gastroesophageal reflux disease. 5. Osteoarthritis. 6. Morbid obesity. PAST SURGICAL HISTORY: 1. Cholecystectomy. 2. Gluteal abscess, I and D. 3. Left eye surgery. 4. Left great toe partial ray amputation, left fifth toe partial amputation, and right fifth toe partial amputation. SOCIAL HISTORY: The patient is , lives at home. No history of tobacco, alcohol, or illicit drug use. FAMILY HISTORY: Strong family history of diabetes, as well as asthma. No coronary artery disease, stroke, or cancer. ALLERGIES: 1. MORPHINE. 2. PENICILLIN, WHICH CAUSES A RASH A CHILD. MEDICATIONS: The patient does not have her full medication list with her and does not remember all the dosages except for her, 1. Lantus 50 units in the morning and 30 units at night. Other medications I have obtained from her previous hospitalization: 1. Lisinopril 2.5 mg daily. 2. Carvedilol 3.125 mg daily. 3. Ranitidine 300 mg daily. 4. Atorvastatin 20 mg daily. 5. Florastor 250 mg daily. REVIEW OF SYSTEMS: CONSTITUTIONAL: The patient had a little bit of low-grade fever with upper respiratory tract infection 1 to 2 weeks ago that has since resolved. EYES: She is blind in the left eye. No visual changes in the right eye. ENT: She has inconsistent drainage within her upper respiratory tract infection, couple weeks ago, that is all resolved now. No sore throat. PULMONARY: No current coughing or wheezing. She had some cough, couple weeks ago. No shortness of breath. CARDIOVASCULAR: No chest pain. No palpitations or racing heart. GASTROINTESTINAL: No abdominal pain. No nausea or vomiting. No diarrhea or constipation. GENITOURINARY: No dysuria or hematuria. MUSCULOSKELETAL: See HPI. SKIN: No rashes besides the redness and sore on her foot. NEUROLOGIC: She has poor sensation in bilateral feet from peripheral neuropathy. PHYSICAL EXAMINATION: VITAL SIGNS: Blood pressure 169/82, pulse 70, respirations 17, temperature 98.9, and O2 saturation 98% on room air. GENERAL: This is a well-developed, obese female, in no acute distress. HEENT: Right pupil is round and reactive to light. Left pupil is irregular and nonreactive. Oropharynx clear without lesions, erythema, or exudate. NECK: Supple. No lymphadenopathy. No thyroid nodules or enlargement. No JVD. HEART: Regular rate and rhythm. No murmurs, rubs, or gallops. LUNGS: Clear to auscultation bilaterally. No wheezes, crackles, or rhonchi. ABDOMEN: Soft, obese, nontender to palpation. Normoactive bowel sounds. No hepatosplenomegaly or other masses. EXTREMITIES: The patient has absent distal fifth digit on her right foot. She also has a small ulcerated area over the right lateral distal foot around the fifth metatarsal head with some surrounding erythema about 3 to 4 cm around it, none tracking up the foot. She does have some significant swelling superiorly and anteriorly to the anterior talofibular ligament along with some mild tenderness to this area. There is no warmth, though more consistent with sprain of this part of the foot . SKIN: See above. NEUROLOGIC: She has intact strength in all extremities. No facial droop. She has decreased sensation in her distal foot. LABORATORY DATA: CBC within normal limits. Complete metabolic panel notable for BUN of 24, glucose of 281, the rest was normal. C-reactive protein was elevated at 2.16. ESR was normal. Urinalysis just showed glucose, no infection. X-ray, I did review the foot x-ray done in the emergency room along with the radiologist's report. Findings suggestive of chronic osteomyelitis of the great toe and second metatarsophalangeal joints but also at the area of pain and redness, she has some cortical loss of the neck of the proximal phalanx of the small toe with sequale of underlying osteomyelitis along with extensive soft tissue swelling and in the midfoot has severe degenerative changes, likely diabetic neuropathy. ASSESSMENT: 1. Infected diabetic foot ulcer with osteomyelitis. We will continue Rocephin and vancomycin. We will have pharmacy dose of vancomycin and will consult On-call General Surgery to evaluate for likely further amputation and also consult Wound Care. 2. Diabetes mellitus type 2, insulin dependent, very poorly controlled. We will increase her insulin to 50 units twice a day and we will put her on aggressive sliding scale. We will check blood sugars q.a.c. and at bedtime. 3. Hypertension. We will resume home medications. 4. Gastrointestinal prophylaxis. The patient is on Pepcid twice a day. 5. Deep venous thrombosis prophylaxis. We will hold off on Lovenox for now until Surgery sees her. After that, we can start with Lovenox if they are okay with it. 6. Code status. This patient is a full code. Should she be incapacitated, she states that her will be her medical decision maker. His name is Sadiq Colon. Job ID: [id number]
[2018-06-19] MEDS: Sodium Chloride 0.9% 1,000 ML IV SCH ×2 (03:29→21:19)
[2018-06-19] MEDS: Acetaminophen 325 MG TAB PO PRN ×4 (03:29→21:20)
[2018-06-19 04:22] VITALS: BMI 52.8
--- NOTE | 2018-06-19 07:33 | PDOC.PN ---
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 No fever. Patient refusing to have Dr. Chan see her. No other surgeon -: who does feet. Will consult podiatry group. - Objective Resuscitation Status - Order Detail: 06/18/18 18:48 Resuscitation Status Routine Resuscitation Status: FULL: Full Resuscitation Discussed with: Patient MAR Reviewed: Yes Vital Signs & Weight: Vital Signs (12 hours) Temp Pulse Resp BP Pulse Ox 06/19/18 02:40 99 06/19/18 02:30 98.1 F 71 20 165/89 H 99 Weight Weight 289 lb I&O: 06/18/18 06/19/18 06/20/18 06:59 06:59 06:59 Intake Total 300 Balance 300 Result Diagrams: 06/19/18 08:26 06/19/18 08:26 Additional Labs: Accuchecks 06/19/18 06/18/18 05:49 22:57 POC Glucose 138 H 185 H Phys Exam - Physical Examination Constitutional: NAD HEENT: moist MMs Respiratory: no wheezing, no rales, no rhonchi Cardiovascular: RRR, no significant murmur Gastrointestinal: soft, non-tender, positive bowel sounds ulcer on right lateral foot with dressing, erythema looks slightly improved no tracking up foot or leg Neurological: non-focal, moves all 4 limbs Psychiatric: normal affect, A&O x 3 Dx/Plan (1) Osteomyelitis of right foot Code(s): M86.9 - OSTEOMYELITIS, UNSPECIFIED Status: Acute Comment: From diabetic foot infection, on Rocephin and Vancomycin (2) Diabetes mellitus type 2, insulin dependent Code(s): E11.9 - TYPE 2 DIABETES MELLITUS WITHOUT COMPLICATIONS; 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 - Discharge Day Encounter end time: 10:15
[2018-06-19] MEDS ORDERED: Polyethylene Glycol 3350 17 GM Packet PO PRN (07:34)
[2018-06-19] MEDS: Famotidine 20 MG TAB PO SCH ×2 (08:41→21:20)
[2018-06-19] MEDS: Carvedilol 3.125 MG TAB PO SCH (08:41)
[2018-06-19] MEDS: Saccharomyces boulardii 250 MG CAP PO SCH (08:41)
[2018-06-19] MEDS: Lisinopril 2.5 MG TAB PO SCH (08:41)
[2018-06-19] MEDS ORDERED: Vancomycin HCl 1 GM in Premix Bag 1 BAG IVPB SCH (09:00)
[2018-06-19] MEDS ORDERED: Non-Formulary Item 1 EACH (Cholecalciferol (Vitamin D3) [Vitamin D3] 1,000 UNIT) PO SCH (09:00)
[2018-06-19] MEDS ORDERED: Insulin Glargine 50 UNITS in Pre-Filled Syringe 1 EACH SC SCH (09:00)
[2018-06-19 09:01] LABS: #Eosinphils 0.2 thou/uL (0.0-0.7); #Lymphocytes 1.8 thou/uL (1.20-3.40); #Monocytes 0.5 thou/uL (0.11-0.59); #Neutrophils 3.8 thou/uL (1.40-6.50); %Basophils 0.3 % (0.0-1.0); %Eosinophils 2.8 % (0.0-10.0); %Lymphocytes 28.8 % (21.0-51.0); %Monocytes 7.7 % (0.0-10.0); %Neutrophils 60.4 % (42.0-75.0); Hemoglobin 13.2 g/dL (12.0-16.0); Mean Corpuscular HGB CONC 33.4 g/dL (32.0-36.0); Mean Corpuscular Hemoglobin 28.8 pg (27.0-31.0); Mean Corpuscular Volume 86.3 fL (78.0-98.0); Mean Platelet Volume 9.9 fL (7.4-10.4); Platelet Count 195 thou/uL (130-400); RBC Distribution Width 12.1 % (11.5-14.5); Red Blood Cell (RBC) Count 4.59 mill/uL (4.20-5.40); White Blood Cell (WBC) Count 6.2 thou/uL (4.8-10.8)
[2018-06-19 09:10] LABS: Anion Gap 12 mmol/L (10-20); BUN (Urea Nitrogen) 17 mg/dL (9.8-20.1); Calc. Creatinine Clearance 177 mL/min (70-130); Calcium 8.9 mg/dL (7.8-10.44); Carbon Dioxide 22 mmol/L (22-29); Chloride 105 mmol/L (98-107); Estimated GFR-MDRD 81; Glucose 168 mg/dL (70-105); Potassium 4.2 mmol/L (3.5-5.1); Sodium 135 mmol/L (136-145)
[2018-06-19] MEDS ORDERED: Insulin Glargine 25 UNITS in Pre-Filled Syringe 1 EACH SC SCH (11:15)
[2018-06-19] MEDS ORDERED: Gadobenate Dimeglumine 529 MG/1 ML (20ML VIAL) ONE (13:27)
[2018-06-19] MEDS: cefTRIAXone\\ROCEPHIN 2 GM in Sodium Chloride 0.9% 100 ML IVPB SCH (16:59)
[2018-06-19] MEDS: HumaLOG 300 UNITS/3 ML VIAL SC PRN (18:15)
--- NOTE | 2018-06-19 19:17 | MRI ---
MRI RIGHT FOREFOOT WITH AND WITHOUT IV CONTRAST: HISTORY: Inflammatory changes, right 5th toe. Swelling, right foot. Open wound, lateral side, 5th toe. Prio r amputation. FINDINGS: There is some focal soft tissue swelling lateral to the 5th toe metatarsophalangeal joint with some e nhancement, evidence for cellulitis, without evidence for a drainable abscess. No abnormal marrow si gnal to suggest osteomyelitis. Marked degenerative changes of the foot with marked hallux valgus def ormity of the great toe and significant degenerative and osteoarthrosis changes. Old healed fracture of the distal 2nd metatarsal. Minimal nonspecific T2 hyperintensity within some of the intrinsic fo ot muscles. IMPRESSION: 1. Focal soft tissue swelling with some enhancement, of the 5th toe, lateral to the metatarsophalang eal joint, evidence for cellulitis, without evidence for a drainable abscess. 2. No evidence for osteomyelitis. 3. Status post amputation changes of the distal 5th toe. 4. Severe degenerative changes of the foot and associated deformity. POS: OFF
[2018-06-19] MEDS: Atorvastatin Calcium 20 MG TAB PO SCH (21:20)
[2018-06-19] MEDS: Insulin Glargine 50 UNITS in Pre-Filled Syringe 1 EACH SC SCH (21:20)
--- NOTE | 2018-06-19 22:16 | CON ---
DATE OF CONSULTATION: 06/19/2018 REASON: Osteomyelitis, right foot. HISTORY OF PRESENT ILLNESS: 53-year-old who is known to us from prior visits and has history of type 2 diabetes, obesity, hypertension, and previous complications related to neuropathy with left first toe amputation. She also has had a gluteal abscess in the past. In September 2016, she had fourth toe osteomyelitis treated and she had a vascular evaluation by Dr. Tee which was felt to be adequate for healing. She did not have amputation of the fourth toe and was treated with antimicrobial therapy. Now, she presents with pain and swelling of the fifth toe MPJ site, right foot. This has been present after wearing shoes that were too tight about a week before with development of an ulcer at the lateral aspect of the MPJ skin. Plain films showed some erosions and otherwise no headaches. No visual symptoms, sore throat, odynophagia, or dysphagia. No cough pr sputum production. No chest pain. No abdominal pain or diarrhea. No genitourinary symptoms. No neurological symptoms. PAST MEDICAL HISTORY: Type 2 diabetes, hypertension, glaucoma, osteoarthritis, prior left first toe amputation, osteomyelitis to the left fourth toe. SURGICAL HISTORY: Cholecystectomy, gluteal abscess, left great toe partial ray amputation, left fifth toe amputation and right fifth toe partial amputation. SOCIAL HISTORY: She works at the [employer]. Never smoker. . FAMILY HISTORY: Noncontributory. ALLERGIES: MORPHINE, PENICILLIN WITH RASH A CHILD. CURRENT MEDICATION LIST: 1. Tylenol. 2. Coreg. 3. Ceftriaxone. 4. Dextrose. 5. Pepcid. 6. Insulin. 7. Lisinopril. 8. Ondansetron. 9. Mylax. 10. Senokot. 11. Vancomycin. PHYSICAL EXAMINATION: VITAL SIGNS: T-max 98.1, blood pressure 150/78, pulse 69. GENERAL: There is no distress. HEENT: Ocular movements conjugate. HEENT exam is noncontributory. SKIN: Shows this small round ulcer at the lateral aspect of the right fifth MPJ skin site with moderate erythema. She has a small ulcer at the tip of the second right toe, it is not really an ulcer, it is more like a healed area of previous ulceration. No swelling. No erythema noted there. She has a valgus deformity of the right first toe, but no erythema or other inflammatory changes and no wound noted. VASCULAR: Pulses are really nice and 2+ in dorsalis pedis. LUNGS: Clear. HEART: Normal. ABDOMEN: Soft, not distended or tender. No other joint inflammatory process noted. NEURO EXAMINATION: Nonfocal. LABORATORY DATA: CBC is completely normal. Creatinine 0.75. Liver profile normal. CRP 2.16. Urinalysis was unremarkable. ASSESSMENT: Type 2 diabetes, neuropathy, and foot complications with possible osteomyelitis of the remnant of the fifth toe with the MPJ. We will order an MRI and then follow up after that. Consult Dr. Tucker, Podiatry, for possible surgical debridement/resection. May need a protracted IV antimicrobial therapy administration. Job ID: [id number] [facility]
[2018-06-20] MEDS: Saccharomyces boulardii 250 MG CAP PO SCH (09:06)
[2018-06-20] MEDS: Acetaminophen 325 MG TAB PO PRN ×3 (09:06→21:15)
[2018-06-20] MEDS: Carvedilol 3.125 MG TAB PO SCH (09:07)
[2018-06-20] MEDS: Insulin Glargine 50 UNITS in Pre-Filled Syringe 1 EACH SC SCH ×2 (09:07→21:17)
[2018-06-20] MEDS: Lisinopril 2.5 MG TAB PO SCH (09:07)
[2018-06-20] MEDS: Famotidine 20 MG TAB PO SCH ×2 (09:07→21:16)
[2018-06-20] MEDS: Sodium Chloride 0.9% 1,000 ML IV SCH ×2 (09:08→23:34)
--- NOTE | 2018-06-20 09:14 | PDOC.PN ---
- Subjective Encounter Start Date: 06/20/18 Encounter Start Time: 11:00 Subjective: Patient reports no pain, no fever. Case Therapist came by last night. - Objective Resuscitation Status - Order Detail: 06/18/18 18:48 Resuscitation Status Routine Resuscitation Status: FULL: Full Resuscitation Discussed with: Patient OWEN Reviewed: Yes Vital Signs & Weight: Vital Signs (12 hours) Temp Pulse Resp BP Pulse Ox 06/20/18 08:39 98.4 F 81 16 181/91 H 97 06/20/18 04:17 97.8 F 68 20 147/73 H 97 06/20/18 00:55 98.1 F 75 20 159/73 H 98 Weight Admit Weight 289 lb Weight 289 lb I&O: 06/19/18 06/20/18 06/21/18 06:59 06:59 06:59 Intake Total 300 1675 Balance 300 1675 Result Diagrams: 06/19/18 08:26 06/19/18 08:26 Additional Labs: Accuchecks 06/20/18 06/19/18 06/19/18 05:28 21:11 17:23 POC Glucose 135 H 190 H 253 H 06/19/18 11:14 POC Glucose 150 H Phys Exam - Physical Examination Constitutional: NAD HEENT: moist MMs Respiratory: no wheezing, no rales, no rhonchi Cardiovascular: RRR, no significant murmur Gastrointestinal: soft, positive bowel sounds decreased redness around ulcer Neurological: non-focal Psychiatric: normal affect, A&O x 3 Dx/Plan (1) Diabetic foot infection Code(s): E11.628 - TYPE 2 DIABETES MELLITUS WITH OTHER SKIN COMPLICATIONS; L08.9 - LOCAL INFECTION OF THE SKIN AND SUBCUTANEOUS TISSUE, UNSP Status: Acute Comment: with cellulitis, on abx, Dr. 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 - Discharge Day Encounter end time: 11:15
[2018-06-20] MEDS: cefTRIAXone\\ROCEPHIN 2 GM in Sodium Chloride 0.9% 100 ML IVPB SCH (15:37)
--- NOTE | 2018-06-20 17:07 | PRG ---
DATE OF SERVICE: 06/20/2018 SUBJECTIVE: Having headaches. She has headaches intermittently, which usually get better with ibuprofen. No respiratory symptoms or abdominal pain. OBJECTIVE: VITAL SIGNS: Normal except for elevation of systolic blood pressure. LUNGS: Clear. HEART: S1 and S2. Regular rate. ABDOMEN: Soft, not distended. EXTREMITIES: The foot is unchanged except for less erythema. DIAGNOSTIC AND LABORATORY DATA: Blood cultures, no growth and the MRI showed no evidence of osteomyelitis, some cellulitis. No abscess. ASSESSMENT AND DISCUSSION: Type 2 diabetes, neuropathy with small ulcer with cellulitis, but no evidence of osteomyelitis. PLAN: Plan is to transition her to oral Cipro plus doxycycline for Augmentin plus ciprofloxacin for discharge planning, treat for about 3 weeks. Job ID: [id number]
[2018-06-20] MEDS: Ibuprofen 200 MG TAB PO PRN (17:36)
[2018-06-20] MEDS: HumaLOG 300 UNITS/3 ML VIAL SC PRN (17:37)
[2018-06-20 17:51] LABS: Vancomycin, Trough 9.8 ug/mL
[2018-06-20] MEDS: Atorvastatin Calcium 20 MG TAB PO SCH (21:16)
[2018-06-21] MEDS: Ibuprofen 200 MG TAB PO PRN (04:22)
[2018-06-21] MEDS: Acetaminophen 325 MG TAB PO PRN ×2 (04:22→12:53)
[2018-06-21] MEDS ORDERED: Vancomycin HCl 1.5 GM in Sodium Chloride 0.9% 250 ML 300 ML IVPB SCH (06:00)
[2018-06-21] MEDS: Lisinopril 2.5 MG TAB PO SCH (08:30)
[2018-06-21] MEDS: Saccharomyces boulardii 250 MG CAP PO SCH (08:31)
[2018-06-21] MEDS: Insulin Glargine 50 UNITS in Pre-Filled Syringe 1 EACH SC SCH (08:31)
[2018-06-21] MEDS: Famotidine 20 MG TAB PO SCH (08:31)
[2018-06-21] MEDS: Carvedilol 3.125 MG TAB PO SCH (08:31)
[2018-06-21] MEDS: HumaLOG 300 UNITS/3 ML VIAL SC PRN ×2 (12:45→16:44)
[2018-06-21 16:48] VITALS: BP 168/80; TEMP 98.4
--- NOTE | 2018-06-23 15:42 | DIS ---
DATE OF ADMISSION: 06/18/2018 DATE OF DISCHARGE: 06/21/2018 PRIMARY CARE PHYSICIAN: Dr. Tanner. CHIEF COMPLAINT/REASON FOR ADMISSION: Pain/redness/soreness to the right foot, right fifth metatarsal head. PRINCIPAL DIAGNOSES ON ADMISSION: 1. Infected diabetic foot ulcer, right foot. 2. Type 2 diabetes with polyneuropathy. 3. Essential hypertension. DISCHARGE DIAGNOSES: 1. Diabetic foot infection, right fifth metatarsal area, with no evidence for underlying osteomyelitis. 2. Type 2 diabetes with polyneuropathy. 3. Essential hypertension, suboptimal control. 4. Dyslipidemia. 5. Gastroesophageal reflux disease. 6. Obesity. 7. History of glaucoma with left eye blindness. 8. Osteoarthritis. CONSULTS DURING HOSPITAL STAY: 1. Podiatry, Johny Tucker DPM. 2. Adan Macias MD, Infectious Disease. HOSPITAL COURSE: Ms. Colon is a 53-year-old female with a history of poorly controlled diabetes with polyneuropathy. She presented after reporting wearing shoes that were too tight about 1 to 2 weeks prior, developing a sore/ulceration, lateral right fifth metatarsal head. She noted worsening pain/swelling/redness around the area of her foot and proceeded to the hospital for additional evaluation. She was admitted to the hospital as an inpatient. The patient was placed on Rocephin and vancomycin. Imaging included x-ray of the foot on 06/18/2018, suggesting chronic osteomyelitis, great toe and second metatarsophalangeal joint. However, followup lower extremity MRI on 06/19/2018 showed no evidence of osteomyelitis. Specifically, results showed focal soft tissue swelling with some enhancement at this toe, lateral to metatarsophalangeal joint with evidence for cellulitis, no drainable abscess, no evidence of osteomyelitis. She has previously undergone amputation changes at the distal fifth toe and had severe degenerative changes of the foot, no associated deformity. She was seen and evaluated by Podiatry, Johny Tucker DPM. Case reviewed, and bedside debridement undertaken on 06/21/2018. She will be placed in a surgical boot, and will continue oral antibiotics per Infectious Disease recommendations to include Cipro plus doxycycline and Augmentin for about 3 weeks. Please note Omnicef substituted for Augmentin due to PCN allergy. She has tolerated rocephin during hospital course. I met and evaluated the patient today. She is comfortable. No significant pain or discomfort. Blood pressures have been running on the high side, dose of lisinopril increased from 2.5 mg to 5 mg daily. She will transition off oral antibiotics and follow up with the outpatient wound care clinic. Appointment has been set up for her for Sunday as well. Additionally, she will see Dr. Tucker in the office next week. PHYSICAL EXAMINATION: LUNGS: Clear to auscultation bilaterally. HEART: Regular rate and rhythm. EXTREMITIES: No significant lower extremity edema. Her wound is presently dressed with Kerlix and gauze verlying the right lower extremity. MEDICATIONS/DISCHARGE PLANNIN. Discharge disposition: Home. 2. Followup Plans: Wound Care Clinic, [facility], 9 a.m. on 06/24/18. 3. Follow up with Dr. Tucker next week. MEDICATIONS: 1. Omnicef 300 mg p.o. b.i.d. for 3 weeks (Omnicef substituted for Augmentin, due to the patient's reported penicillin allergy. Notably, she tolerated Rocephin during her in-hospital stay). 2. Ciprofloxacin 500 mg p.o. b.i.d. for 3 weeks. 3. Doxycycline 100 mg p.o. b.i.d. for 3 weeks. 4. Ranitidine 300 mg p.o. b.i.d. 5. Lisinopril 5 mg p.o. daily. 6. Levemir 50 units subcu q.a.m. and 30 units subcu at bedtime. 7. Florastor 1 p.o. daily. 8. MiraLAX 17 g p.o. daily. 9. Vitamin D 1000 units p.o. daily. 10. Coreg 3.125 mg p.o. twice daily. 11. Atorvastatin 20 mg p.o. at bedtime. DIET RESTRICTION: Diabetic/heart healthy. ACTIVITY: Wear surgical boot with ambulation, will receive boot prior to discharge. TOTAL TIME SPENT on discharge, 45 minutes. Job ID: [id number] MTDD
== END 2018-06-21 16:57 | disposition home or self-care (01) | DRG 638 ==
LOC: ERS 12:11 → ERHOLD 16:25 → SURG A 06-19 02:33
PROVIDERS: ADMIT Emergency Medicine; ATTEND Emergency Medicine
DX: E11.621 Type 2 diabetes mellitus with foot ulcer (principal); Z68.43 Body mass index [BMI] 50.0-59.9, adult; L03.116 Cellulitis of left lower limb; L97.529 Non-pressure chronic ulcer of other part of left foot with unspecified severity; E11.65 Type 2 diabetes mellitus with hyperglycemia; I10 Essential (primary) hypertension; K21.9 Gastro-esophageal reflux disease without esophagitis; E11.40 Type 2 diabetes mellitus with diabetic neuropathy, unspecified; E11.628 Type 2 diabetes mellitus with other skin complications; R51 Headache; M19.90 Unspecified osteoarthritis, unspecified site; E66.01 Morbid (severe) obesity due to excess calories; Z90.49 Acquired absence of other specified parts of digestive tract; Z98.890 Other specified postprocedural states; Z89.412 Acquired absence of left great toe; Z89.421 Acquired absence of other right toe(s); Z88.0 Allergy status to penicillin; Z88.5 Allergy status to narcotic agent; Z79.899 Other long term (current) drug therapy; Z79.4 Long term (current) use of insulin
CPT/HCPCS: 36415; 36416; 80048; 80053; 80202; 81003; 81015; 83605; 85025; 85652; 86140; 87040; 93005; 93010; A9579; J0696; J3370; J7050

== ENCOUNTER 2018-06-24 09:06 | Outpatient (CLI) | payer BC ==
[2018-06-24] MEDS ORDERED: Sodium Chloride 0.9% 15 ML NEB ONE (13:56)
--- NOTE | 2018-06-24 14:33 | HP ---
HISTORY OF PRESENT ILLNESS: Ms. Aparna Colon is a very pleasant 53-year-old, who presents to the Wound Center for evaluation of a wound of the right lateral foot subsequent to debridement at bedside by Dr. Tucker on 06/21/2018, after admission to [facility] on 06/18/2018 for pain and erythema associated with the wound of her right lateral foot. Upon discharge from [facility], the patient was referred to the Wound Center for assistance with dressing changes. The patient states that she also will be obtaining a followup appointment with Dr. Tucker next week. PAST MEDICAL HISTORY: 1. Diabetes mellitus. 2. Hypertension. 3. Headaches. 4. Peripheral vascular disease. 5. Glaucoma, on the left. 6. Gastroesophageal reflux disease. 7. Osteoarthritis. PAST SURGICAL HISTORY: 1. Surgery for gluteal abscess. 2. Left eye surgery. 3. Laparoscopic cholecystectomy. 4. Right eye surgery. 5. Left great toe amputation. 6. Left fifth toe partial amputation. 7. Right fifth toe amputation. MEDICATIONS: 1. Levemir. 2. Lisinopril. 3. Vitamin D. 4. Coreg. 5. Omnicef. 6. Ciprofloxacin. 7. Doxycycline. ALLERGIES: PENICILLIN, IODINE, AND MORPHINE. SOCIAL HISTORY: Social history is negative for tobacco or EtOH use. FAMILY HISTORY: Family history is significant for diabetes mellitus. The patient states that she has three sisters and one brother, who were diagnosed with diabetes mellitus. She states that her mother was also diagnosed with diabetes mellitus. Family history is also significant for coronary artery disease. The patient states that her sister was diagnosed with coronary artery disease. PHYSICAL EXAMINATION: VITAL SIGNS: Temperature 98.3, pulse 66, respirations 19, blood pressure 193/79, and Accu-Chek 163. GENERAL: A 53-year-old female, sitting on chair in examination room, in no acute distress. HEENT: Normocephalic and atraumatic. NECK: No nuchal rigidity. CHEST: Clear to auscultation. CV: Regular rate and rhythm. ABDOMEN: Soft. EXTREMITIES: A wound of the right lateral foot is present, which measures approximately 0.6 x 1.1 cm. Granulation tissue is present within the wound margins. No purulent drainage is associated with the wound. No erythema of the skin surrounding the wound is present. No maceration of the skin of the periwound is noted. A dorsalis pedis pulse is easily palpable on the right. No significant edema of the right foot is present on today's exam. ASSESSMENT AND PLAN: 1. Ulceration of right lateral foot as described above. Dressing changes of Silvercel, 4x4s, Kerlix, and an Haja bandage will be initiated today. These dressing changes are to be performed 3 times per week after cleansing and irrigation with the assistance of Home Health. The patient is to continue p.o. antibiotics as prescribed at the time of her recent discharge from the hospital. I will see Ms. Colon again as needed after her evaluation by Dr. Tucker of Podiatry. 2. Diabetes mellitus. The patient's Accu-Chek in clinic today is 163. The patient has been told that for optimal wound healing her blood glucoses should remain below 150. 3. Hypertension. 4. Headaches. 5. Peripheral vascular disease. 6. Glaucoma on the left. 7. Gastroesophageal reflux disease. 8. Osteoarthritis. Job ID: [id number]
== END 2018-06-24 09:07 | disposition home or self-care (01) ==
LOC: WCC 09:06
PROVIDERS: ATTEND Family Medicine
DX: E11.621 Type 2 diabetes mellitus with foot ulcer (principal); L97.519 Non-pressure chronic ulcer of other part of right foot with unspecified severity; I10 Essential (primary) hypertension; R51 Headache; E11.39 Type 2 diabetes mellitus with other diabetic ophthalmic complication; H42 Glaucoma in diseases classified elsewhere; K21.9 Gastro-esophageal reflux disease without esophagitis; M19.90 Unspecified osteoarthritis, unspecified site
CPT/HCPCS: 97602; 99203; A4218; G0463

== ENCOUNTER 2018-07-01 12:55 | Outpatient (CLI) | payer BC ==
--- NOTE | 2018-07-01 15:59 | RAD ---
THREE VIEWS RIGHT FOOT: History: Ulcer, fifth metatarsal head. Comparison: 06-18-18 FINDINGS: AP, lateral, and oblique views right foot obtained and demonstrate surgical resection of the distal a spect of the fifth right digit. NO definite evidence of osseous acute lesions seen. Old healed fractu res seen in the distal aspect of the fifth right metatarsal. No evidence of gas seen within the soft tissues. Hallus valgus deformity seen in the first digit. There is extensive degenerative changes see n in the 1st-5th metatarsal joints. IMPRESSION: No acute evidence of bony lesions seen. If there is concern for osteomyelitis, correlation with MRI w ith and without contrast may be of use. POS: [facility]
== END 2018-07-01 12:56 | disposition home or self-care (01) ==
LOC: BICRAD 12:55
PROVIDERS: ATTEND Podiatrist
DX: E11.621 Type 2 diabetes mellitus with foot ulcer (principal); L97.519 Non-pressure chronic ulcer of other part of right foot with unspecified severity

== ENCOUNTER 2018-08-05 13:12 | Outpatient (CLI) | payer BC ==
--- NOTE | 2018-08-05 16:00 | RAD ---
RIGHT FOOT 3 VIEWS: Date: 08/05/18 HISTORY: Ulcer of diabetes in fifth metatarsal head. COMPARISON: Radiograph dated 07/01/18. FINDINGS: Chronic erosion of the proximal phalanx of the small toe. There are also chronic erosions of the late ral cortex of the small toe metatarsal head and neck. There is lateral subluxation of the great toe m etatarsophalangeal joint and sesamoids. There is fragmentation of the second metatarsal head with ossific debris of the metatarsophalangeal j oint. Advanced degenerative changes of the mid foot. Large dorsal and plantar calcaneal spurs. IMPRESSION: Similar examination to the foot. No definite evidence of acute osteomyelitis. If clinically warranted , MRI recommended. POS: [facility]
== END 2018-08-05 13:13 | disposition home or self-care (01) ==
LOC: BICRAD 13:12
PROVIDERS: ATTEND Podiatrist
DX: E11.621 Type 2 diabetes mellitus with foot ulcer (principal); L97.519 Non-pressure chronic ulcer of other part of right foot with unspecified severity

== ENCOUNTER 2018-10-29 14:20 | Outpatient (CLI) | payer BC ==
--- NOTE | 2018-10-29 15:07 | RAD ---
4 VIEWS RIGHT TOES: Date: 10/29/18 HISTORY: Diabetic ulcer fourth toe for several weeks. COMPARISON: 09/02/18. FINDINGS: Again noted is evidence of amputation of the right fourth toe at the level of the proximal phalanx. R emote fracture and deformity of the fifth metatarsal is again seen. There is soft tissue irregularity involving the fourth toe, which may be related to patient's ulcerat ion of the right fourth toe. The fourth toe is held in flexion, which limits evaluation. There is que stion of slight irregularity involving the tuft of the distal phalanx of the fourth toe, but this is overall similar in appearance to views of the foot on 08/05/18. There is metatarsus prima varus and h allux valgus present with persistent mild subluxation at the metatarsophalangeal joint. There is stable fragmentation of the second metatarsal head with ossific debris in the metatarsophala ngeal joint second toe. Degenerative changes are seen at the tarsometatarsal joints. There has been no significant interval c hange when compared to prior exam. IMPRESSION: Irregularity of the soft tissues of the fourth toe with subcutaneous soft tissue swelling likely rela ioana to patient's known wound and ulceration. There is slight irregularity of the tuft of the distal p halanx of the right fourth toe, but this has a similar appearance when compared to study on 08/05/18. While osteomyelitis is a possibility, this is an overall stable finding. Remainder of the findings a re as described above and are unchanged from prior study. POS: [facility]
== END 2018-10-29 14:21 | disposition home or self-care (01) ==
LOC: BICRAD 14:20
PROVIDERS: ATTEND Podiatrist
DX: E11.621 Type 2 diabetes mellitus with foot ulcer (principal); L97.519 Non-pressure chronic ulcer of other part of right foot with unspecified severity; M79.89 Other specified soft tissue disorders; M20.5X1 Other deformities of toe(s) (acquired), right foot; M19.071 Primary osteoarthritis, right ankle and foot

== ENCOUNTER 2020-01-08 11:06 | Outpatient (CLI) | payer BC ==
--- NOTE | 2020-01-08 11:25 | RAD ---
Radiograph left shoulder 3 views: 01/08/2020 HISTORY: 54-year-old female with repeat traumatic injury and pain FINDINGS: No fracture, dislocation, or subluxation. Moderate DJD at AC joint. Mild to moderate DJD at glenohumeral joint. IMPRESSION: 1. No fracture. 2. Osteoarthrosis
== END 2020-01-08 11:07 | disposition home or self-care (01) ==
LOC: BICRAD 11:06
PROVIDERS: ATTEND Nurse Practitioner Family
DX: S49.92XA Unspecified injury of left shoulder and upper arm, initial encounter (principal); M19.012 Primary osteoarthritis, left shoulder

== ENCOUNTER 2020-09-24 09:47 | Emergency (ER) | payer BC ==
[2020-09-24 10:45] LABS: #Eosinphils 0.1 thou/uL (0.0-0.7); #Lymphocytes 1.9 thou/uL (1.20-3.40); #Monocytes 0.4 thou/uL (0.11-0.59); #Neutrophils 3.4 thou/uL (1.40-6.50); %Basophils 0.2 % (0.0-1.0); %Eosinophils 1.4 % (0.0-10.0); %Monocytes 6.9 % (0.0-10.0); %Neutrophils 59.5 % (42.0-75.0); Hemoglobin 13.2 g/dL (12.0-16.0); Mean Corpuscular HGB CONC 31.5 g/dL (32.0-36.0); Mean Corpuscular Hemoglobin 28.2 pg (27.0-31.0); Mean Corpuscular Volume 89.6 fL (78.0-98.0); Mean Platelet Volume 9.7 fL (7.4-10.4); Platelet Count 230 thou/uL (130-400); RBC Distribution Width 11.8 % (11.5-14.5); Red Blood Cell (RBC) Count 4.69 mill/uL (4.20-5.40); White Blood Cell (WBC) Count 5.8 thou/uL (4.8-10.8)
[2020-09-24 11:06] LABS: ALT (SGPT) 19 U/L (8-55); AST (SGOT) 19 U/L (5-34); Albumin 3.8 g/dL (3.5-5.0); Alkaline Phosphatase 121 U/L (40-110); Anion Gap 14 mmol/L (10-20); BUN (Urea Nitrogen) 24 mg/dL (9.8-20.1); Bilirubin, Total 0.4 mg/dL (0.2-1.2); Calc. Creatinine Clearance 0 mL/min (70-130); Calcium 9.9 mg/dL (7.8-10.44); Carbon Dioxide 25 mmol/L (22-29); Chloride 103 mmol/L (98-107); Globulin 4.3 g/dL (2.4-3.5); Glucose 229 mg/dL (70-105); Potassium 4.2 mmol/L (3.5-5.1); Protein, Total 8.1 g/dL (6.0-8.3); Sodium 138 mmol/L (136-145)
== END 2020-09-24 11:40 | disposition home or self-care (01) ==
LOC: ERS 09:47
DX: I83.028 Varicose veins of left lower extremity with ulcer other part of lower leg (principal); E11.622 Type 2 diabetes mellitus with other skin ulcer; L97.929 Non-pressure chronic ulcer of unspecified part of left lower leg with unspecified severity; L03.116 Cellulitis of left lower limb; I10 Essential (primary) hypertension; E66.9 Obesity, unspecified; Z79.899 Other long term (current) drug therapy
CPT/HCPCS: 36415; 80053; 83605; 83735; 85025; 87040; 87086

== ENCOUNTER 2020-12-05 20:00 | Inpatient (IN) | payer BC ==
[~2020-12-05 20:00] MED LIST changes: +Aspirin Chewable 81 MG TAB ONE; -Cyclopentolate 1% Opth Drop 2 ML BOT FS SCH; -EPINEPHrine 0.3 MG, Dextrose 50% 3 ML in Ophthalmic Irrigation Solution 500 ML FS SCH; +Heparin 10,000 UNITS/ 10 ML VIAL ONE; +Metoprolol Tartrate 5 MG/5 ML VIAL ONE; -Phenylephrine HCl 2.5% Ophth Soln 5 ML BOT FS SCH; +Sodium Chloride 0.9% 1,000 ML BAG ONE
[2020-12-05 21:00] LABS: #Eosinphils 0.1 thou/uL (0.0-0.7); #Lymphocytes 1.9 thou/uL (1.20-3.40); #Monocytes 0.7 thou/uL (0.11-0.59); #Neutrophils 6.1 thou/uL (1.40-6.50); %Basophils 0.1 % (0.0-1.0); %Lymphocytes 21.5 % (21.0-51.0); %Neutrophils 69.5 % (42.0-75.0); Hemoglobin 12.4 g/dL (12.0-16.0); Mean Corpuscular HGB CONC 34.2 g/dL (32.0-36.0); Mean Corpuscular Hemoglobin 31.1 pg (27.0-31.0); Mean Corpuscular Volume 90.7 fL (78.0-98.0); Mean Platelet Volume 9.3 fL (7.4-10.4); Platelet Count 227 thou/uL (130-400); White Blood Cell (WBC) Count 8.8 thou/uL (4.8-10.8)
[2020-12-05] MEDS ORDERED: Lidocaine 1% (PF) 30 ML VIAL ONE (21:04)
[2020-12-05] MEDS ORDERED: Heparin 10,000 UNITS/ 10 ML VIAL ONE (21:04)
[2020-12-05 21:07] LABS: INR-International Normal Ratio 1.1; PTT 37.8 sec (22.9-36.1); Prothrombin Time 13.8 sec (12.0-14.7)
[2020-12-05 21:18] LABS: Anion Gap 12 mmol/L (10-20); BUN (Urea Nitrogen) 24 mg/dL (9.8-20.1); Calc. Creatinine Clearance 0 mL/min (70-130); Calcium 9.6 mg/dL (7.8-10.44); Carbon Dioxide 24 mmol/L (22-29); Chloride 104 mmol/L (98-107); Glucose 318 mg/dL (70-105); Potassium 4.2 mmol/L (3.5-5.1); Sodium 136 mmol/L (136-145)
[2020-12-05] MEDS ORDERED: diphenhydrAMINE 50 MG/ML VIAL ONE (21:26)
[2020-12-05] MEDS ORDERED: Midazolam HCl 2 mg/2 ml Vial ONE (21:27)
[2020-12-05] MEDS ORDERED: Hydrocortisone Sod Succ/PF 100 mg/2 ml Vial ONE (21:27)
[2020-12-05] MEDS ORDERED: Fentanyl 100 MCG/2 ML VIAL ONE ×2 (21:27→23:48)
[2020-12-05 21:48] LABS: CKMB 2.9 ng/mL (0-6.6)
[2020-12-05] MEDS ORDERED: Aggrastat 12.5 MG/250 ML 250 ML ONE (21:50)
[2020-12-05] MEDS ORDERED: Clopidogrel Bisulfate 300 MG TAB ONE (21:53)
[2020-12-05] MEDS ORDERED: Nitroglycerin 100MG/250ML BOT 250 ML ONE (21:59)
[2020-12-05] MEDS ORDERED: Nitroglycerin 0.4 MG TAB (25 Tab Bottle) SL PRN (22:33)
[2020-12-05] MEDS ORDERED: Aggrastat 12.5 MG/250 ML 250 ML IVPB SCH (22:45)
[2020-12-05] MEDS ORDERED: Nitroglycerin 50 MG/250 ML BOT 250 ML IVPB SCH (23:45)
[2020-12-05] MEDS ORDERED: Nitroglycerin 50 MG/250 ML BOT 250 ML ONE (23:50)
[2020-12-05] MEDS: Fentanyl 100 MCG/2 ML VIAL SLOW IVP PRN (23:56)
[2020-12-06 00:08] LABS: SARS-CoV-2 NAA Rapid Test Not Detected (NotDetected)
[2020-12-06 01:01] LABS: Troponin I 10.766 ng/mL (< 0.028)
[2020-12-06] MEDS ORDERED: hydrALAZINE 20 MG/ML VIAL SLOW IVP PRN (01:15)
[2020-12-06] MEDS ORDERED: Dextrose 5% in Water 1,000 ML IV PRN (01:15)
[2020-12-06] MEDS ORDERED: HumaLOG 300 UNITS/3 ML VIAL SC PRN ×2 (01:15)
[2020-12-06] MEDS ORDERED: Dextrose 50% Abboject 50 ML SYRINGE SLOW IVP PRN (01:15)
[2020-12-06] MEDS: Fentanyl 100 MCG/2 ML VIAL SLOW IVP PRN ×6 (03:02→21:00)
[2020-12-06] MEDS: Sodium Chloride 0.9% 1,000 ML IV SCH ×3 (04:19→23:30)
[2020-12-06 04:35] LABS: #Lymphocytes 1.3 thou/uL (1.20-3.40); #Monocytes 0.4 thou/uL (0.11-0.59); #Neutrophils 7.7 thou/uL (1.40-6.50); %Lymphocytes 13.6 % (21.0-51.0); %Monocytes 3.9 % (0.0-10.0); %Neutrophils 82.4 % (42.0-75.0); Hemoglobin 11.7 g/dL (12.0-16.0); Mean Corpuscular HGB CONC 32.3 g/dL (32.0-36.0); Mean Corpuscular Hemoglobin 29.1 pg (27.0-31.0); Mean Platelet Volume 9.2 fL (7.4-10.4); Platelet Count 249 thou/uL (130-400); RBC Distribution Width 12.1 % (11.5-14.5); Red Blood Cell (RBC) Count 4.02 mill/uL (4.20-5.40); White Blood Cell (WBC) Count 9.4 thou/uL (4.8-10.8)
[2020-12-06 04:57] LABS: ALT (SGPT) 18 U/L (8-55); AST (SGOT) 17 U/L (5-34); Albumin 3.2 g/dL (3.5-5.0); Alkaline Phosphatase 74 U/L (40-110); Anion Gap 14 mmol/L (10-20); BUN (Urea Nitrogen) 17 mg/dL (9.8-20.1); Bilirubin, Total 0.3 mg/dL (0.2-1.2); Calc. Creatinine Clearance 191 mL/min (70-130); Calcium 8.9 mg/dL (7.8-10.44); Carbon Dioxide 19 mmol/L (22-29); Cardiac Risk 3.4 (Less than 4.5); Chloride 108 mmol/L (98-107); Cholesterol 135 mg/dl (< 200 Desired); Globulin 3.8 g/dL (2.4-3.5); Glucose 172 mg/dL (70-105); HDL Cholesterol 40 mg/dL (>60 Neg Risk); LDL Cholesterol, Calculated 78 mg/dL; Sodium 137 mmol/L (136-145); Triglycerides 84 mg/dL (Less than 150)
[2020-12-06 05:03] LABS: Troponin I 9.734 ng/mL (< 0.028)
[2020-12-06] MEDS: HYDROcodone/Acetaminophen 5/325 mg Tablet PO PRN ×3 (05:54→19:06)
[2020-12-06 08:40] LABS: Troponin I 9.908 ng/mL (< 0.028)
[2020-12-06] MEDS: Clopidogrel Bisulfate 75 MG TAB PO SCH (09:34)
[2020-12-06] MEDS: Aspirin Chewable 81 MG TAB PO SCH (09:34)
[2020-12-06 09:53] LABS: Hemoglobin A1c 8.4 % (4.0-6.0)
[2020-12-06] MEDS ORDERED: Carvedilol 6.25 MG TAB PO SCH (11:15)
[2020-12-06] MEDS ORDERED: Lisinopril 20 MG TAB PO SCH (11:15)
[2020-12-06] MEDS: Lisinopril 20 MG TAB PO SCH (11:54)
[2020-12-06] MEDS: Carvedilol 3.125 MG TAB PO SCH (20:58)
[2020-12-06] MEDS: Atorvastatin Calcium 40 MG TAB PO SCH (21:00)
[2020-12-06] MEDS: Lantus 1000 UNITS/10 ML VIAL SC SCH (21:06)
[2020-12-06] MEDS: Acetaminophen 325 MG TAB PO PRN (22:32)
[2020-12-07] MEDS: HYDROcodone/Acetaminophen 5/325 mg Tablet PO PRN ×3 (03:19→18:17)
[2020-12-07] MEDS: Sodium Chloride 0.9% 1,000 ML IV SCH ×2 (05:54→14:13)
[2020-12-07] MEDS: Fentanyl 100 MCG/2 ML VIAL SLOW IVP PRN (08:08)
[2020-12-07] MEDS: Clopidogrel Bisulfate 75 MG TAB PO SCH (08:08)
[2020-12-07] MEDS: Carvedilol 3.125 MG TAB PO SCH (08:10)
[2020-12-07] MEDS: Lantus 1000 UNITS/10 ML VIAL SC SCH (08:10)
[2020-12-07] MEDS: Aspirin Chewable 81 MG TAB PO SCH (08:10)
[2020-12-07] MEDS ORDERED: Milk Of Magnesia 30 ML UDCUP PO SCH (12:30)
[2020-12-07] MEDS: Carvedilol 6.25 MG TAB PO SCH ×2 (14:52→22:43)
[2020-12-07] MEDS ORDERED: Scopolamine 1.5 mg/72 hour Patch TOP SCH (15:15)
[2020-12-07] MEDS: Atorvastatin Calcium 40 MG TAB PO SCH (22:44)
[2020-12-07] MEDS: Acetaminophen 325 MG TAB PO PRN (22:44)
[2020-12-08] MEDS: Lantus 1000 UNITS/10 ML VIAL SC SCH ×2 (02:22→09:40)
[2020-12-08] MEDS: HYDROcodone/Acetaminophen 5/325 mg Tablet PO PRN ×2 (02:23→07:36)
[2020-12-08 04:50] LABS: #Eosinphils 0.1 thou/uL (0.0-0.7); #Lymphocytes 1.8 thou/uL (1.20-3.40); #Monocytes 0.7 thou/uL (0.11-0.59); #Neutrophils 6.2 thou/uL (1.40-6.50); %Basophils 0.1 % (0.0-1.0); %Eosinophils 0.8 % (0.0-10.0); %Lymphocytes 20.3 % (21.0-51.0); %Monocytes 7.8 % (0.0-10.0); Hemoglobin 10.5 g/dL (12.0-16.0); Mean Corpuscular HGB CONC 34.6 g/dL (32.0-36.0); Mean Corpuscular Hemoglobin 31.3 pg (27.0-31.0); Mean Corpuscular Volume 90.5 fL (78.0-98.0); Mean Platelet Volume 8.9 fL (7.4-10.4); Platelet Count 232 thou/uL (130-400); RBC Distribution Width 12.1 % (11.5-14.5); Red Blood Cell (RBC) Count 3.37 mill/uL (4.20-5.40); White Blood Cell (WBC) Count 8.8 thou/uL (4.8-10.8)
[2020-12-08 05:08] LABS: Anion Gap 14 mmol/L (10-20); BUN (Urea Nitrogen) 13 mg/dL (9.8-20.1); Calc. Creatinine Clearance 188 mL/min (70-130); Calcium 8.6 mg/dL (7.8-10.44); Carbon Dioxide 18 mmol/L (22-29); Chloride 107 mmol/L (98-107); Glucose 76 mg/dL (70-105); Potassium 3.8 mmol/L (3.5-5.1); Sodium 135 mmol/L (136-145)
[2020-12-08] MEDS: Sodium Chloride 0.9% 1,000 ML IV SCH ×2 (07:45→08:42)
[2020-12-08] MEDS: Carvedilol 6.25 MG TAB PO SCH ×2 (09:39→14:45)
[2020-12-08] MEDS: Clopidogrel Bisulfate 75 MG TAB PO SCH (09:39)
[2020-12-08] MEDS: Lisinopril 20 MG TAB PO SCH (09:39)
[2020-12-08] MEDS: Aspirin Chewable 81 MG TAB PO SCH (09:39)
[2020-12-08 11:23] VITALS: TEMP 99.1
[2020-12-08 11:44] VITALS: BP 152/70
== END 2020-12-08 15:35 | disposition home or self-care (01) | DRG 247 ==
LOC: ERS 20:00 → SDC/OP 21:21 → CCU 21:57 → 2NO 12-06 19:52
PROVIDERS: ADMIT Internal Medicine Cardiovascular Disease; ATTEND Internal Medicine Cardiovascular Disease
PROC: 027034Z Dilation of Coronary Artery, One Artery with Drug-eluting Intraluminal Device, Percutaneous Approach (ICD-10-PCS; principal; 2020-12-05)
PROC: B2111ZZ Fluoroscopy of Multiple Coronary Arteries using Low Osmolar Contrast (ICD-10-PCS; 2020-12-05)
DX: I21.19 ST elevation (STEMI) myocardial infarction involving other coronary artery of inferior wall (principal); Z68.43 Body mass index [BMI] 50.0-59.9, adult; I10 Essential (primary) hypertension; E11.9 Type 2 diabetes mellitus without complications; E66.01 Morbid (severe) obesity due to excess calories; K21.9 Gastro-esophageal reflux disease without esophagitis; E78.5 Hyperlipidemia, unspecified; K04.7 Periapical abscess without sinus; Z79.4 Long term (current) use of insulin; Z79.899 Other long term (current) drug therapy; Z79.82 Long term (current) use of aspirin; Z90.49 Acquired absence of other specified parts of digestive tract; Z89.421 Acquired absence of other right toe(s); Z88.5 Allergy status to narcotic agent; Z88.0 Allergy status to penicillin; Z88.8 Allergy status to other drugs, medicaments and biological substances
CPT/HCPCS: 36415; 36416; 71046; 76942; 80048; 80053; 80061; 82553; 83036; 83880; 84484; 85025; 85347; 85610; 85730; 92928; 93005; 93010; 93306; 93454; 93798; 96374; 99152; 99153; C1757; C1874; C9600; J1200; J1644; J1720; J1815; J2001; J2250; J3010; J3246; J7050; U0002; U0005

== ENCOUNTER 2021-06-15 16:49 | Emergency (ER) | payer BC ==
[2021-06-15 17:38] LABS: #Eosinphils 0.1 thou/uL (0.0-0.7); %Eosinophils 1.5 % (0.0-10.0); %Lymphocytes 12.1 % (21.0-51.0); %Monocytes 11.8 % (0.0-10.0); %Neutrophils 74.6 % (42.0-75.0); Hemoglobin 13.8 g/dL (12.0-16.0); Mean Corpuscular HGB CONC 34.1 g/dL (32.0-36.0); Mean Corpuscular Hemoglobin 30.2 pg (27.0-31.0); Mean Corpuscular Volume 88.4 fL (78.0-98.0); Mean Platelet Volume 8.9 fL (7.4-10.4); Platelet Count 216 thou/uL (130-400); RBC Distribution Width 12.4 % (11.5-14.5); Red Blood Cell (RBC) Count 4.58 mill/uL (4.20-5.40)
[2021-06-15 17:54] LABS: ALT (SGPT) 27 U/L (8-55); AST (SGOT) 21 U/L (5-34); Albumin 4.1 g/dL (3.5-5.0); Alkaline Phosphatase 119 U/L (40-110); Anion Gap 13 mmol/L (10-20); BUN (Urea Nitrogen) 20 mg/dL (9.8-20.1); Bilirubin, Total 0.3 mg/dL (0.2-1.2); Calc. Creatinine Clearance 0 mL/min (70-130); Carbon Dioxide 26 mmol/L (22-29); Chloride 105 mmol/L (98-107); Globulin 4.2 g/dL (2.4-3.5); Glucose 122 mg/dL (70-105); Potassium 3.8 mmol/L (3.5-5.1); Protein, Total 8.3 g/dL (6.0-8.3); Sodium 140 mmol/L (136-145)
[2021-06-15] MEDS ORDERED: Ondansetron PF 4 MG/2 ML Vial ONE (17:58)
[2021-06-15] MEDS ORDERED: Ketorolac Tromethamine 30 MG/ML VIAL ONE (17:58)
[2021-06-15 18:02] LABS: Bilirubin Negative (Negative); Blood, Urine Small (Negative); Glucose, Urine (Dipstick) Negative (Negative); Ketone, Urine Negative (Negative); Leukocyte Negative (Negative); Nitrite Negative (Negative); Protein, Urine (Dipstick) 100 mg/dL (Neg-Trace); Specific Gravity, Urine 1.025 (1.005-1.030); Urobilinogen 0.2 mg/dL (Less than 2)
[2021-06-15 18:03] LABS: Clarity Clear (Clear)
[2021-06-15] MEDS ORDERED: Acetaminophen 500 MG TAB ONE (18:03)
[2021-06-15 18:23] LABS: RBC/HPF 0-3 HPF (0-3)
[2021-06-15 18:24] LABS: Bacteria/HPF Rare-Few HPF (None Seen); WBC/HPF 0-3 HPF (0-3)
[2021-06-15] MEDS ORDERED: Fentanyl 100 MCG/2 ML VIAL ONE (19:15)
[2021-06-16 16:22] LABS: SARS-CoV-2 PCR by NAA DETECTED (NotDetected)
== END 2021-06-15 20:52 | disposition home or self-care (01) ==
LOC: ERS 16:49
DX: U07.1 COVID-19 (principal); E11.9 Type 2 diabetes mellitus without complications; I10 Essential (primary) hypertension; E66.9 Obesity, unspecified; Z79.4 Long term (current) use of insulin; Z79.899 Other long term (current) drug therapy
CPT/HCPCS: 36415; 71045; 71275; 74177; 80053; 81003; 81015; 83605; 83690; 84484; 85025; 85379; 87040; 87076; 87086; 87149; 93005; 96374; 96375; J1885; J2405; J3010; U0003; U0005

== ENCOUNTER 2021-06-17 10:55 | Emergency (ER) | payer BC ==
[2021-06-17 12:47] LABS: #Lymphocytes 1.6 thou/uL (1.20-3.40); #Monocytes 0.5 thou/uL (0.11-0.59); #Neutrophils 2.5 thou/uL (1.40-6.50); %Basophils 0.1 % (0.0-1.0); %Eosinophils 0.6 % (0.0-10.0); %Lymphocytes 34.4 % (21.0-51.0); %Monocytes 10.2 % (0.0-10.0); %Neutrophils 54.7 % (42.0-75.0); Hemoglobin 13.7 g/dL (12.0-16.0); Mean Corpuscular HGB CONC 33.1 g/dL (32.0-36.0); Mean Corpuscular Hemoglobin 29.4 pg (27.0-31.0); Mean Corpuscular Volume 88.9 fL (78.0-98.0); Mean Platelet Volume 8.8 fL (7.4-10.4); Platelet Count 203 thou/uL (130-400); RBC Distribution Width 12.5 % (11.5-14.5); Red Blood Cell (RBC) Count 4.66 mill/uL (4.20-5.40); White Blood Cell (WBC) Count 4.5 thou/uL (4.8-10.8)
[2021-06-17 13:17] LABS: ALT (SGPT) 34 U/L (8-55); AST (SGOT) 29 U/L (5-34); Albumin 3.8 g/dL (3.5-5.0); Alkaline Phosphatase 97 U/L (40-110); Anion Gap 13 mmol/L (10-20); BUN (Urea Nitrogen) 15 mg/dL (9.8-20.1); Bilirubin, Total 0.3 mg/dL (0.2-1.2); Calc. Creatinine Clearance 0 mL/min (70-130); Calcium 9.4 mg/dL (7.8-10.44); Carbon Dioxide 26 mmol/L (22-29); Chloride 105 mmol/L (98-107); Globulin 3.5 g/dL (2.4-3.5); Glucose 147 mg/dL (70-105); Lipase 13 U/L (8-78); Potassium 3.9 mmol/L (3.5-5.1); Protein, Total 7.3 g/dL (6.0-8.3)
[2021-06-17 13:21] LABS: Sodium 140 mmol/L (136-145)
[2021-06-17] MEDS ORDERED: Ketorolac Tromethamine 30 MG/ML VIAL ONE (13:22)
[2021-06-17] MEDS ORDERED: cefTRIAXone\\ROCEPHIN 2 GM VIAL ONE (13:22)
[2021-06-17] MEDS ORDERED: Dicyclomine 20 MG TAB ONE (14:42)
[2021-06-17] MEDS ORDERED: cefTRIAXone\\ROCEPHIN 1 GM VIAL ONE (14:42)
[2021-06-17] MEDS ORDERED: Lidocaine 1% PF 5 ML VIAL ONE (14:42)
[2021-06-17 15:46] LABS: Bilirubin Negative (Negative); Blood, Urine Trace (Negative); Clarity Turbid (Clear); Glucose, Urine (Dipstick) 50 mg/dL (Negative); Ketone, Urine Negative (Negative); Leukocyte Negative Leu/uL (Negative); Nitrite Negative (Negative); Protein, Urine (Dipstick) 300 mg/dL (Neg-Trace); RBC/HPF 0-3 HPF (0-3); Specific Gravity, Urine 1.035 (1.002-1.036); Squamous Epithelial 21-50 HPF (0-3); Urobilinogen Normal mg/dL (Less than 2); WBC/HPF 0-3 HPF (0-3)
[2021-06-17 15:47] LABS: Bacteria/HPF Rare-Few HPF (None Seen)
== END 2021-06-17 15:14 | disposition home or self-care (01) ==
LOC: ERS 10:55
DX: R78.81 Bacteremia (principal); I10 Essential (primary) hypertension; E11.9 Type 2 diabetes mellitus without complications; E66.9 Obesity, unspecified; Z79.4 Long term (current) use of insulin; Z79.899 Other long term (current) drug therapy; Z20.822 Contact with and (suspected) exposure to COVID-19
CPT/HCPCS: 36415; 71045; 80053; 81003; 81015; 83605; 83690; 84484; 85025; 87040; 87086; 93005; 96372; J0696; J1885

== ENCOUNTER 2021-12-28 10:49 | Outpatient (CLI) | payer BC | END 2021-12-28 10:50 | disposition home or self-care (01) | LOC: BICRAD 10:49 | PROVIDERS: ATTEND Internal Medicine | DX: R06.00 Dyspnea, unspecified (principal) | CPT/HCPCS: 71046 ==

== ENCOUNTER 2022-05-24 11:03 | Emergency (ER) | payer BC ==
[2022-05-24 11:35] LABS: #Eosinphils 0.1 thou/uL (0.0-0.7); #Lymphocytes 1.7 thou/uL (1.20-3.40); #Monocytes 0.5 thou/uL (0.11-0.59); #Neutrophils 5.2 thou/uL (1.40-6.50); %Basophils 0.1 % (0.0-1.0); %Eosinophils 1.3 % (0.0-10.0); %Lymphocytes 23.1 % (21.0-51.0); %Monocytes 6.1 % (0.0-10.0); %Neutrophils 69.4 % (42.0-75.0); Hemoglobin 13.7 g/dL (12.0-16.0); Mean Corpuscular HGB CONC 32.7 g/dL (32.0-36.0); Mean Corpuscular Hemoglobin 30.1 pg (27.0-31.0); Mean Platelet Volume 9.9 fL (7.4-10.4); Platelet Count 195 10x3/uL (130-400); RBC Distribution Width 11.5 % (11.5-14.5); Red Blood Cell (RBC) Count 4.55 mill/uL (4.20-5.40); White Blood Cell (WBC) Count 7.5 10x3/uL (4.8-10.8)
[2022-05-24 11:59] LABS: ALT (SGPT) 23 U/L (8-55); AST (SGOT) 22 U/L (5-34); Albumin 4.1 g/dL (3.5-5.0); Alkaline Phosphatase 84 U/L (40-110); Anion Gap 16 mmol/L (10-20); BUN (Urea Nitrogen) 14 mg/dL (9.8-20.1); Bilirubin, Total 0.6 mg/dL (0.2-1.2); Calc. Creatinine Clearance 0 mL/min (70-130); Calcium 9.5 mg/dL (7.8-10.44); Carbon Dioxide 25 mmol/L (22-29); Chloride 105 mmol/L (98-107); Estimated GFR 79; Globulin 3.3 g/dL (2.4-3.5); Glucose 143 mg/dL (70-105); Lipase 8 U/L (8-78); Potassium 4.3 mmol/L (3.5-5.1); Protein, Total 7.4 g/dL (6.0-8.3); Sodium 142 mmol/L (136-145)
[2022-05-24] MEDS ORDERED: Ketorolac Tromethamine 30 MG/ML VIAL ONE (15:37)
[2022-05-24] MEDS ORDERED: Iopamidol-370 76% 500 ML 1 ML ONE (16:01)
== END 2022-05-24 15:45 | disposition home or self-care (01) ==
LOC: ERS 11:03
DX: R10.9 Unspecified abdominal pain (principal); R06.02 Shortness of breath; I10 Essential (primary) hypertension; E11.9 Type 2 diabetes mellitus without complications; E66.9 Obesity, unspecified; E78.00 Pure hypercholesterolemia, unspecified
CPT/HCPCS: 36415; 71045; 74177; 80053; 80061; 83690; 83880; 84484; 85025; 93005; J1885; Q9967

== ENCOUNTER 2022-06-14 13:18 | Inpatient (IN) | payer BC ==
[2022-06-14] MEDS ORDERED: Magnesium 2 GM/50 ML BAG (IN WATER) ONE (14:13)
[2022-06-14] MEDS ORDERED: Dexamethasone 10 MG/ML VIAL ONE (14:15)
[2022-06-14 14:29] LABS: #Lymphocytes 0.7 thou/uL (1.20-3.40); #Monocytes 0.4 thou/uL (0.11-0.59); #Neutrophils 6.9 thou/uL (1.40-6.50); %Basophils 0.3 % (0.0-1.0); %Eosinophils 0.3 % (0.0-10.0); %Lymphocytes 8.7 % (21.0-51.0); %Monocytes 4.8 % (0.0-10.0); %Neutrophils 85.9 % (42.0-75.0); Hemoglobin 10.7 g/dL (12.0-16.0); Mean Corpuscular HGB CONC 34.1 g/dL (32.0-36.0); Mean Corpuscular Hemoglobin 31.2 pg (27.0-31.0); Mean Corpuscular Volume 91.4 fl (78.0-98.0); Mean Platelet Volume 9.9 fL (7.4-10.4); Platelet Count 146 10x3/uL (130-400); RBC Distribution Width 11.9 % (11.5-14.5); Red Blood Cell (RBC) Count 3.43 mill/uL (4.20-5.40)
[2022-06-14 14:48] LABS: ALT (SGPT) 15 U/L (8-55); AST (SGOT) 20 U/L (5-34); Albumin 3.8 g/dL (3.5-5.0); Alkaline Phosphatase 71 U/L (40-110); Anion Gap 13 mmol/L (10-20); BUN (Urea Nitrogen) 19 mg/dL (9.8-20.1); Bilirubin, Total 0.8 mg/dL (0.2-1.2); CK (CPK) 163 U/L (29-168); Calc. Creatinine Clearance 0 mL/min (70-130); Calcium 8.7 mg/dL (7.8-10.44); Carbon Dioxide 23 mmol/L (22-29); Chloride 104 mmol/L (98-107); Estimated GFR 71; Globulin 3.2 g/dL (2.4-3.5); Glucose 210 mg/dL (70-105); Lipase 9 U/L (8-78); Potassium 4.4 mmol/L (3.5-5.1); Sodium 136 mmol/L (136-145)
[2022-06-14] MEDS ORDERED: hydrALAZINE 20 MG/ML VIAL ONE (15:12)
[2022-06-14 15:56] LABS: Bacteria/HPF 2+ HPF (None Seen); Bilirubin Negative (Negative); Blood, Urine 1+ (Negative); Clarity Clear (Clear); Glucose, Urine (Dipstick) 500 mg/dL (Negative); Ketone, Urine 10 mg/dL (Negative); Leukocyte Negative Leu/uL (Negative); Nitrite Negative (Negative); Protein, Urine (Dipstick) 100 mg/dL (Neg-Trace); RBC/HPF 0-3 HPF (0-3); Specific Gravity, Urine 1.021 (1.002-1.036); Squamous Epithelial 0-3 HPF (0-3); WBC/HPF 0-3 HPF (0-3)
[2022-06-14 16:56] LABS: SARS-CoV-2 NAA Rapid Test DETECTED (NotDetected)
[2022-06-14] MEDS ORDERED: Nitroglycerin 2% Ointment 1 INCH/1 GM Packet ONE (17:00)
[2022-06-14] MEDS ORDERED: Diltiazem 125 MG/25 ML ONE (17:40)
[2022-06-14] MEDS ORDERED: niCARdipine 25 MG/10 ML VIAL ONE ×3 (17:43→20:13)
[2022-06-14] MEDS ORDERED: Acetaminophen 650 MG Suppository PR PRN (17:59)
[2022-06-14] MEDS ORDERED: Ondansetron PF 4 MG/2 ML Vial IVP PRN (17:59)
[2022-06-14] MEDS ORDERED: Dextrose 5% in Water 1,000 ML IV PRN (18:04)
[2022-06-14] MEDS ORDERED: Dextrose 50% Abboject 50 ML SYRINGE SLOW IVP PRN (18:04)
[2022-06-14] MEDS ORDERED: HumaLOG 300 UNITS/3 ML VIAL SC PRN (18:04)
[2022-06-14] MEDS ORDERED: Furosemide 20 MG/2 ML VIAL SLOW IVP SCH (18:15)
[2022-06-14] MEDS ORDERED: REMDESIVIR 200 MG in Sodium Chloride 0.9% 250 ML 210 ML IV SCH (21:00)
[2022-06-14] MEDS ORDERED: Sodium Chloride 0.9% 1,000 ML IV SCH (22:30)
[2022-06-14 22:56] VITALS: BMI 62.8
[2022-06-14] MEDS: niCARdipine 25 MG in Sodium Chloride 0.9% 250 ML 250 ML IVPB SCH (23:21)
[2022-06-15] MEDS ORDERED: Guaifenesin DM 100-10/5 ML UDCUP PO PRN (00:20)
[2022-06-15] MEDS ORDERED: Benzonatate 100 MG CAP PO PRN (00:20)
[2022-06-15] MEDS ORDERED: Albuterol 200 PUFF (6.7GM INHALER) INH PRN (00:20)
[2022-06-15] MEDS: Insulin Glargine 30 UNITS/0.3 ML VIAL SC SCH ×4 (00:32→20:15)
[2022-06-15] MEDS ORDERED: niCARdipine 25 MG/10 ML VIAL ONE (02:25)
[2022-06-15] MEDS: niCARdipine 25 MG in Sodium Chloride 0.9% 250 ML 250 ML IVPB SCH (02:26)
[2022-06-15 04:06] LABS: #Basophils 0.1 thou/uL (0.0-0.2); #Lymphocytes 0.5 thou/uL (1.20-3.40); #Monocytes 0.1 thou/uL (0.11-0.59); #Neutrophils 4.5 thou/uL (1.40-6.50); %Basophils 1.9 % (0.0-1.0); %Eosinophils 0.4 % (0.0-10.0); %Lymphocytes 9.1 % (21.0-51.0); %Monocytes 2.4 % (0.0-10.0); %Neutrophils 86.3 % (42.0-75.0); Hemoglobin 10.3 g/dL (12.0-16.0); Mean Corpuscular HGB CONC 32.4 g/dL (32.0-36.0); Mean Corpuscular Volume 92.5 fl (78.0-98.0); Mean Platelet Volume 11.3 fL (7.4-10.4); Platelet Count 139 10x3/uL (130-400); RBC Distribution Width 11.8 % (11.5-14.5); Red Blood Cell (RBC) Count 3.45 mill/uL (4.20-5.40); White Blood Cell (WBC) Count 5.2 10x3/uL (4.8-10.8)
[2022-06-15 04:25] LABS: Anion Gap 18 mmol/L (10-20); BUN (Urea Nitrogen) 25 mg/dL (9.8-20.1); Calc. Creatinine Clearance 162 mL/min (70-130); Calcium 8.3 mg/dL (7.8-10.44); Carbon Dioxide 15 mmol/L (22-29); Chloride 105 mmol/L (98-107); Estimated GFR 71; Glucose 299 mg/dL (70-105); Potassium 4.5 mmol/L (3.5-5.1); Sodium 133 mmol/L (136-145)
[2022-06-15 04:26] LABS: ALT (SGPT) 18 U/L (8-55); AST (SGOT) 20 U/L (5-34); Albumin 3.2 g/dL (3.5-5.0); Alkaline Phosphatase 64 U/L (40-110); Bilirubin, Direct 0.3 mg/dL (0.1-0.3); Bilirubin, Total 0.6 mg/dL (0.2-1.2); Protein, Total 6.6 g/dL (6.0-8.3)
[2022-06-15] MEDS: HumaLOG 300 UNITS/3 ML VIAL SC PRN ×3 (05:50→17:31)
[2022-06-15] MEDS: Ascorbic Acid 500 mg Chewable Tablet PO SCH (09:56)
[2022-06-15] MEDS: Dexamethasone 4 MG TAB PO SCH (09:57)
[2022-06-15] MEDS: Amlodipine 5 MG TAB PO SCH (09:57)
[2022-06-15] MEDS: Clopidogrel Bisulfate 75 MG TAB PO SCH (09:57)
[2022-06-15] MEDS: Carvedilol 25 MG TAB PO SCH ×2 (09:58→20:17)
[2022-06-15] MEDS: Aspirin Chewable 81 MG TAB PO SCH (09:58)
[2022-06-15] MEDS: Cholecalciferol 1,000 UNITS (25 MCG) TAB PO SCH (10:00)
[2022-06-15] MEDS ORDERED: cloNIDine 0.1 MG TAB PO PRN ×2 (16:34→20:46)
[2022-06-15] MEDS: Lisinopril 20 MG TAB PO SCH (20:16)
[2022-06-15] MEDS: REMDESIVIR 100 MG in Sodium Chloride 0.9% 250 ML 230 ML IV SCH (20:17)
[2022-06-15] MEDS: Atorvastatin Calcium 40 MG TAB PO SCH (20:17)
[2022-06-15] MEDS: hydrALAZINE 25 MG TAB PO SCH (20:17)
[2022-06-16] MEDS: Acetaminophen 325 MG TAB PO PRN (00:27)
[2022-06-16] MEDS: HumaLOG 300 UNITS/3 ML VIAL SC PRN ×3 (03:45→18:49)
[2022-06-16 04:01] LABS: #Basophils 0.1 thou/uL (0.0-0.2); #Lymphocytes 0.6 thou/uL (1.20-3.40); #Monocytes 0.3 thou/uL (0.11-0.59); #Neutrophils 3.9 thou/uL (1.40-6.50); %Basophils 1.4 % (0.0-1.0); %Eosinophils 0.1 % (0.0-10.0); %Lymphocytes 11.6 % (21.0-51.0); %Monocytes 6.2 % (0.0-10.0); %Neutrophils 80.7 % (42.0-75.0); Hemoglobin 10.9 g/dL (12.0-16.0); Mean Corpuscular HGB CONC 33.7 g/dL (32.0-36.0); Mean Corpuscular Hemoglobin 30.3 pg (27.0-31.0); Mean Corpuscular Volume 89.8 fl (78.0-98.0); Mean Platelet Volume 11.2 fL (7.4-10.4); Platelet Count 158 10x3/uL (130-400); RBC Distribution Width 11.7 % (11.5-14.5); White Blood Cell (WBC) Count 4.9 10x3/uL (4.8-10.8)
[2022-06-16 04:21] LABS: Anion Gap 13 mmol/L (10-20); BUN (Urea Nitrogen) 23 mg/dL (9.8-20.1); Calc. Creatinine Clearance 182 mL/min (70-130); Calcium 8.6 mg/dL (7.8-10.44); Carbon Dioxide 19 mmol/L (22-29); Chloride 105 mmol/L (98-107); Estimated GFR 82; Glucose 324 mg/dL (70-105); Potassium 4.4 mmol/L (3.5-5.1); Sodium 133 mmol/L (136-145)
[2022-06-16 04:25] LABS: Bilirubin, Direct 0.2 mg/dL (0.1-0.3); Bilirubin, Total 0.3 mg/dL (0.2-1.2); Protein, Total 6.5 g/dL (6.0-8.3)
[2022-06-16 04:26] LABS: ALT (SGPT) 19 U/L (8-55); AST (SGOT) 22 U/L (5-34); Albumin 3.2 g/dL (3.5-5.0); Alkaline Phosphatase 64 U/L (40-110)
[2022-06-16] MEDS: Dexamethasone 4 MG TAB PO SCH (09:35)
[2022-06-16] MEDS: Clopidogrel Bisulfate 75 MG TAB PO SCH (09:35)
[2022-06-16] MEDS: Ascorbic Acid 500 mg Chewable Tablet PO SCH (09:35)
[2022-06-16] MEDS: Carvedilol 25 MG TAB PO SCH ×2 (09:35→20:24)
[2022-06-16] MEDS: Amlodipine 5 MG TAB PO SCH (09:36)
[2022-06-16] MEDS: Lisinopril 20 MG TAB PO SCH ×2 (09:36→20:24)
[2022-06-16] MEDS: hydrALAZINE 25 MG TAB PO SCH ×2 (09:36→20:23)
[2022-06-16] MEDS: Insulin Glargine 30 UNITS/0.3 ML VIAL SC SCH ×2 (09:36→20:24)
[2022-06-16] MEDS: Aspirin Chewable 81 MG TAB PO SCH (09:36)
[2022-06-16] MEDS: Cholecalciferol 1,000 UNITS (25 MCG) TAB PO SCH (09:36)
[2022-06-16] MEDS ORDERED: cloNIDine 0.2mg/24 Hour PATCH TD SCH (18:00)
[2022-06-16 19:13] LABS: Thyroid Stimulating Hormone 0.5528 uIU/mL (0.35-4.94)
[2022-06-16 19:51] LABS: T4 6.1 ug/dL (4.87-11.72)
[2022-06-16] MEDS: REMDESIVIR 100 MG in Sodium Chloride 0.9% 250 ML 230 ML IV SCH (20:20)
[2022-06-16] MEDS: Atorvastatin Calcium 40 MG TAB PO SCH (20:24)
[2022-06-17] MEDS: Acetaminophen 325 MG TAB PO PRN ×2 (01:20→09:42)
[2022-06-17 04:58] LABS: #Lymphocytes 0.7 thou/uL (1.20-3.40); #Monocytes 0.3 thou/uL (0.11-0.59); %Basophils 0.1 % (0.0-1.0); %Eosinophils 0.1 % (0.0-10.0); %Lymphocytes 9.3 % (21.0-51.0); %Monocytes 4.3 % (0.0-10.0); %Neutrophils 86.3 % (42.0-75.0); Hemoglobin 11.4 g/dL (12.0-16.0); Mean Corpuscular Hemoglobin 29.9 pg (27.0-31.0); Mean Corpuscular Volume 90.7 fl (78.0-98.0); Mean Platelet Volume 10.1 fL (7.4-10.4); Platelet Count 203 10x3/uL (130-400); RBC Distribution Width 11.7 % (11.5-14.5)
[2022-06-17 05:24] LABS: Anion Gap 8 mmol/L (10-20); BUN (Urea Nitrogen) 23 mg/dL (9.8-20.1); Calc. Creatinine Clearance 199 mL/min (70-130); Calcium 8.7 mg/dL (7.8-10.44); Carbon Dioxide 23 mmol/L (22-29); Chloride 106 mmol/L (98-107); Estimated GFR 91; Glucose 341 mg/dL (70-105); Potassium 4.3 mmol/L (3.5-5.1); Sodium 133 mmol/L (136-145)
[2022-06-17] MEDS: HumaLOG 300 UNITS/3 ML VIAL SC PRN ×4 (06:08→21:00)
[2022-06-17 06:35] LABS: ALT (SGPT) 18 U/L (8-55); AST (SGOT) 29 U/L (5-34); Albumin 3.1 g/dL (3.5-5.0); Alkaline Phosphatase 68 U/L (40-110); Bilirubin, Direct 0.2 mg/dL (0.1-0.3); Bilirubin, Total 0.3 mg/dL (0.2-1.2); Protein, Total 6.4 g/dL (6.0-8.3)
[2022-06-17] MEDS: Dexamethasone 4 MG TAB PO SCH (09:44)
[2022-06-17] MEDS: Amlodipine 5 MG TAB PO SCH (09:45)
[2022-06-17] MEDS: Ascorbic Acid 500 mg Chewable Tablet PO SCH (09:46)
[2022-06-17] MEDS: Carvedilol 25 MG TAB PO SCH ×2 (09:46→20:59)
[2022-06-17] MEDS: Aspirin Chewable 81 MG TAB PO SCH (09:46)
[2022-06-17] MEDS: Cholecalciferol 1,000 UNITS (25 MCG) TAB PO SCH (09:47)
[2022-06-17] MEDS: hydrALAZINE 25 MG TAB PO SCH ×2 (09:48→21:00)
[2022-06-17] MEDS: Clopidogrel Bisulfate 75 MG TAB PO SCH (09:48)
[2022-06-17] MEDS: Lisinopril 20 MG TAB PO SCH ×2 (09:48→21:00)
[2022-06-17] MEDS: Insulin Glargine 30 UNITS/0.3 ML VIAL SC SCH ×2 (09:49→21:00)
[2022-06-17] MEDS: Atorvastatin Calcium 40 MG TAB PO SCH (20:59)
[2022-06-17] MEDS ORDERED: Famotidine 20 MG TAB PO SCH (21:00)
[2022-06-17] MEDS: REMDESIVIR 100 MG in Sodium Chloride 0.9% 250 ML 230 ML IV SCH (21:51)
[2022-06-18] MEDS: Acetaminophen 325 MG TAB PO PRN ×2 (00:31→22:12)
[2022-06-18 05:04] LABS: #Lymphocytes 0.9 thou/uL (1.20-3.40); #Monocytes 0.5 thou/uL (0.11-0.59); #Neutrophils 7.3 thou/uL (1.40-6.50); %Basophils 0.1 % (0.0-1.0); %Lymphocytes 10.7 % (21.0-51.0); %Monocytes 5.4 % (0.0-10.0); %Neutrophils 83.7 % (42.0-75.0); Hemoglobin 12.5 g/dL (12.0-16.0); Mean Corpuscular HGB CONC 33.6 g/dL (32.0-36.0); Mean Corpuscular Hemoglobin 30.1 pg (27.0-31.0); Mean Corpuscular Volume 89.6 fl (78.0-98.0); Mean Platelet Volume 10.2 fL (7.4-10.4); Platelet Count 203 10x3/uL (130-400); RBC Distribution Width 11.6 % (11.5-14.5); Red Blood Cell (RBC) Count 4.16 mill/uL (4.20-5.40); White Blood Cell (WBC) Count 8.7 10x3/uL (4.8-10.8)
[2022-06-18 05:11] LABS: Anion Gap 13 mmol/L (10-20); BUN (Urea Nitrogen) 20 mg/dL (9.8-20.1); Calc. Creatinine Clearance 189 mL/min (70-130); Calcium 8.8 mg/dL (7.8-10.44); Carbon Dioxide 24 mmol/L (22-29); Chloride 102 mmol/L (98-107); Estimated GFR 85; Glucose 298 mg/dL (70-105); Phosphorus 3.2 mg/dL (2.3-4.7); Potassium 4.2 mmol/L (3.5-5.1); Sodium 135 mmol/L (136-145)
[2022-06-18 05:32] LABS: ALT (SGPT) 15 U/L (8-55); AST (SGOT) 12 U/L (5-34); Albumin 3.2 g/dL (3.5-5.0); Alkaline Phosphatase 61 U/L (40-110); Anion Gap 12 mmol/L (10-20); BUN (Urea Nitrogen) 20 mg/dL (9.8-20.1); Bilirubin, Direct 0.2 mg/dL (0.1-0.3); Bilirubin, Total 0.4 mg/dL (0.2-1.2); Calc. Creatinine Clearance 189 mL/min (70-130); Calcium 8.6 mg/dL (7.8-10.44); Carbon Dioxide 25 mmol/L (22-29); Chloride 102 mmol/L (98-107); Estimated GFR 85; Glucose 297 mg/dL (70-105); Potassium 4.4 mmol/L (3.5-5.1); Protein, Total 6.2 g/dL (6.0-8.3); Sodium 135 mmol/L (136-145)
[2022-06-18] MEDS: HumaLOG 300 UNITS/3 ML VIAL SC PRN ×4 (05:56→23:43)
[2022-06-18] MEDS ORDERED: FLU VACC QS2022-23(6MOS UP)/PF 60 MCG/0.5 ML SYRINGE IM ONE (09:00)
[2022-06-18] MEDS: Insulin Glargine 30 UNITS/0.3 ML VIAL SC SCH (09:58)
[2022-06-18] MEDS: Ascorbic Acid 500 mg Chewable Tablet PO SCH (09:59)
[2022-06-18] MEDS: Amlodipine 5 MG TAB PO SCH (10:00)
[2022-06-18] MEDS: hydrALAZINE 25 MG TAB PO SCH ×4 (10:00→22:07)
[2022-06-18] MEDS: Carvedilol 25 MG TAB PO SCH ×2 (10:00→22:08)
[2022-06-18] MEDS: Cholecalciferol 1,000 UNITS (25 MCG) TAB PO SCH (10:01)
[2022-06-18] MEDS: Dexamethasone 4 MG TAB PO SCH (10:02)
[2022-06-18] MEDS: Clopidogrel Bisulfate 75 MG TAB PO SCH (10:02)
[2022-06-18] MEDS: Aspirin Chewable 81 MG TAB PO SCH (10:03)
[2022-06-18] MEDS: Lisinopril 20 MG TAB PO SCH ×2 (10:03→22:08)
[2022-06-18] MEDS ORDERED: Furosemide 40 MG/4 ML VIAL SLOW IVP SCH (13:15)
[2022-06-18] MEDS ORDERED: Insulin Glargine 30 UNITS/0.3 ML VIAL SC SCH (21:00)
[2022-06-18] MEDS: Atorvastatin Calcium 40 MG TAB PO SCH (22:07)
[2022-06-18] MEDS: Cyclobenzaprine 10 MG TAB PO SCH (22:07)
[2022-06-18] MEDS: REMDESIVIR 100 MG in Sodium Chloride 0.9% 250 ML 230 ML IV SCH (22:09)
[2022-06-19 05:20] LABS: #Lymphocytes 0.9 thou/uL (1.20-3.40); #Monocytes 0.6 thou/uL (0.11-0.59); %Basophils 0.1 % (0.0-1.0); %Eosinophils 0.3 % (0.0-10.0); %Monocytes 7.5 % (0.0-10.0); %Neutrophils 82.2 % (42.0-75.0); Hemoglobin 12.8 g/dL (12.0-16.0); Mean Corpuscular HGB CONC 34.7 g/dL (32.0-36.0); Mean Corpuscular Hemoglobin 30.9 pg (27.0-31.0); Mean Corpuscular Volume 89.2 fl (78.0-98.0); Platelet Count 198 10x3/uL (130-400); RBC Distribution Width 11.6 % (11.5-14.5); Red Blood Cell (RBC) Count 4.14 mill/uL (4.20-5.40); White Blood Cell (WBC) Count 8.5 10x3/uL (4.8-10.8)
[2022-06-19 05:38] LABS: Anion Gap 12 mmol/L (10-20); BUN (Urea Nitrogen) 28 mg/dL (9.8-20.1); Calc. Creatinine Clearance 182 mL/min (70-130); Calcium 9.1 mg/dL (7.8-10.44); Carbon Dioxide 30 mmol/L (22-29); Chloride 98 mmol/L (98-107); Estimated GFR 82; Glucose 262 mg/dL (70-105); Potassium 3.7 mmol/L (3.5-5.1); Sodium 136 mmol/L (136-145)
[2022-06-19] MEDS: HumaLOG 300 UNITS/3 ML VIAL SC PRN ×4 (07:43→22:39)
[2022-06-19] MEDS: Dexamethasone 4 MG TAB PO SCH (08:42)
[2022-06-19] MEDS: Ascorbic Acid 500 mg Chewable Tablet PO SCH (08:42)
[2022-06-19] MEDS: Cholecalciferol 1,000 UNITS (25 MCG) TAB PO SCH (08:42)
[2022-06-19] MEDS: Lisinopril 20 MG TAB PO SCH ×2 (08:42→22:39)
[2022-06-19] MEDS: hydrALAZINE 25 MG TAB PO SCH ×3 (08:43→22:37)
[2022-06-19] MEDS: Carvedilol 25 MG TAB PO SCH ×2 (08:43→22:41)
[2022-06-19] MEDS: Clopidogrel Bisulfate 75 MG TAB PO SCH (08:43)
[2022-06-19] MEDS: Aspirin Chewable 81 MG TAB PO SCH (08:44)
[2022-06-19] MEDS: Cyclobenzaprine 10 MG TAB PO SCH ×2 (08:44→22:36)
[2022-06-19] MEDS: Furosemide 40 MG/4 ML VIAL SLOW IVP SCH (08:45)
[2022-06-19] MEDS ORDERED: NIFEdipine XL 60 MG TAB PO SCH (09:00)
[2022-06-19] MEDS ORDERED: Insulin Glargine 30 UNITS/0.3 ML VIAL SC SCH ×3 (09:00→12:53)
[2022-06-19] MEDS ORDERED: NIFEdipine XL 90 MG TAB PO SCH (09:00)
[2022-06-19] MEDS ORDERED: hydrALAZINE 25 MG TAB PO SCH (21:00)
[2022-06-19] MEDS: Acetaminophen 325 MG TAB PO PRN (22:38)
[2022-06-19] MEDS: Insulin Glargine 30 UNITS/0.3 ML VIAL SC SCH (22:39)
[2022-06-19] MEDS: Atorvastatin Calcium 40 MG TAB PO SCH (22:40)
[2022-06-19] MEDS: Ondansetron ODT 4 MG TAB PO PRN (23:07)
[2022-06-20] MEDS ORDERED: Electrolyte Replacement Protocol 1 EACH FS SCH (01:30)
[2022-06-20] MEDS ORDERED: Magnesium 2 GM/50 ML(in water) 2 GM in Premix Bag 1 BAG IVPB SCH (01:45)
[2022-06-20 02:21] LABS: #Lymphocytes 1.1 thou/uL (1.20-3.40); #Monocytes 0.7 thou/uL (0.11-0.59); #Neutrophils 8.9 thou/uL (1.40-6.50); %Eosinophils 0.1 % (0.0-10.0); %Lymphocytes 10.1 % (21.0-51.0); %Monocytes 6.3 % (0.0-10.0); %Neutrophils 83.5 % (42.0-75.0); Hemoglobin 13.3 g/dL (12.0-16.0); Mean Corpuscular HGB CONC 33.2 g/dL (32.0-36.0); Mean Corpuscular Hemoglobin 29.8 pg (27.0-31.0); Mean Platelet Volume 9.9 fL (7.4-10.4); Platelet Count 222 10x3/uL (130-400); RBC Distribution Width 11.6 % (11.5-14.5); Red Blood Cell (RBC) Count 4.45 mill/uL (4.20-5.40); White Blood Cell (WBC) Count 10.7 10x3/uL (4.8-10.8)
[2022-06-20 02:36] LABS: Troponin I Less than 0.010 ng/mL (< 0.028)
[2022-06-20 02:54] LABS: Anion Gap 15 mmol/L (10-20); BUN (Urea Nitrogen) 42 mg/dL (9.8-20.1); Calc. Creatinine Clearance 144 mL/min (70-130); Calcium 8.9 mg/dL (7.8-10.44); Carbon Dioxide 26 mmol/L (22-29); Chloride 97 mmol/L (98-107); Estimated GFR 62; Glucose 304 mg/dL (70-105); Magnesium 2.1 mg/dL (1.6-2.6); Phosphorus 3.7 mg/dL (2.3-4.7); Potassium 3.7 mmol/L (3.5-5.1); Sodium 134 mmol/L (136-145)
[2022-06-20] MEDS: Cyclobenzaprine 10 MG TAB PO SCH ×2 (08:57→22:11)
[2022-06-20] MEDS: Aspirin Chewable 81 MG TAB PO SCH (08:57)
[2022-06-20] MEDS: Clopidogrel Bisulfate 75 MG TAB PO SCH (08:58)
[2022-06-20] MEDS: Cholecalciferol 1,000 UNITS (25 MCG) TAB PO SCH (08:58)
[2022-06-20] MEDS ORDERED: Dexamethasone 4 MG TAB PO SCH (09:00)
[2022-06-20] MEDS ORDERED: NIFEdipine XL 60 MG TAB PO SCH (09:00)
[2022-06-20] MEDS ORDERED: Insulin Glargine 30 UNITS/0.3 ML VIAL SC SCH (09:00)
[2022-06-20] MEDS: Ascorbic Acid 500 mg Chewable Tablet PO SCH (09:02)
[2022-06-20] MEDS: Furosemide 40 MG/4 ML VIAL SLOW IVP SCH (09:05)
[2022-06-20] MEDS: hydrALAZINE 25 MG TAB PO SCH ×2 (09:28→22:10)
[2022-06-20] MEDS: Lisinopril 20 MG TAB PO SCH ×2 (09:28→22:12)
[2022-06-20] MEDS: Carvedilol 25 MG TAB PO SCH ×2 (09:28→22:11)
[2022-06-20] MEDS ORDERED: Dextrose 5% in Water 1,000 ML IV PRN (15:45)
[2022-06-20] MEDS ORDERED: Dextrose 50% Abboject 50 ML SYRINGE SLOW IVP PRN (15:45)
[2022-06-20] MEDS: HumaLOG 300 UNITS/3 ML VIAL SC PRN ×2 (18:33→22:13)
[2022-06-20] MEDS: Insulin Glargine 30 UNITS/0.3 ML VIAL SC SCH (22:13)
[2022-06-20] MEDS: Acetaminophen 325 MG TAB PO PRN (22:13)
[2022-06-20] MEDS: Ondansetron ODT 4 MG TAB PO PRN (22:14)
[2022-06-20] MEDS: Atorvastatin Calcium 40 MG TAB PO SCH (22:14)
[2022-06-21 05:02] LABS: #Lymphocytes 1.8 thou/uL (1.20-3.40); #Monocytes 0.9 thou/uL (0.11-0.59); #Neutrophils 8.1 thou/uL (1.40-6.50); %Eosinophils 0.4 % (0.0-10.0); %Lymphocytes 16.9 % (21.0-51.0); %Monocytes 7.9 % (0.0-10.0); %Neutrophils 74.8 % (42.0-75.0); Hemoglobin 13.4 g/dL (12.0-16.0); Mean Corpuscular HGB CONC 32.6 g/dL (32.0-36.0); Mean Corpuscular Hemoglobin 29.3 pg (27.0-31.0); Mean Corpuscular Volume 89.9 fl (78.0-98.0); Mean Platelet Volume 10.2 fL (7.4-10.4); Platelet Count 239 10x3/uL (130-400); Red Blood Cell (RBC) Count 4.58 mill/uL (4.20-5.40); White Blood Cell (WBC) Count 10.9 10x3/uL (4.8-10.8)
[2022-06-21 05:19] LABS: Anion Gap 11 mmol/L (10-20); BUN (Urea Nitrogen) 40 mg/dL (9.8-20.1); Calc. Creatinine Clearance 178 mL/min (70-130); Calcium 8.7 mg/dL (7.8-10.44); Carbon Dioxide 31 mmol/L (22-29); Chloride 100 mmol/L (98-107); Estimated GFR 81; Glucose 128 mg/dL (70-105); Potassium 3.5 mmol/L (3.5-5.1); Sodium 138 mmol/L (136-145)
[2022-06-21] MEDS ORDERED: Dexamethasone 1 MG TAB PO SCH (09:00)
[2022-06-21] MEDS ORDERED: Potassium Chloride 20 MEQ TAB PO SCH (10:00)
[2022-06-21] MEDS: Acetaminophen 325 MG TAB PO PRN (12:54)
[2022-06-21] MEDS: Ondansetron ODT 4 MG TAB PO PRN (12:56)
[2022-06-21] MEDS: Cyclobenzaprine 10 MG TAB PO SCH ×2 (12:58→20:25)
[2022-06-21] MEDS: Clopidogrel Bisulfate 75 MG TAB PO SCH (12:58)
[2022-06-21] MEDS: Aspirin Chewable 81 MG TAB PO SCH (12:59)
[2022-06-21] MEDS: NIFEdipine XL 90 MG TAB PO SCH (12:59)
[2022-06-21] MEDS: Cholecalciferol 1,000 UNITS (25 MCG) TAB PO SCH (12:59)
[2022-06-21] MEDS: Lisinopril 20 MG TAB PO SCH ×2 (13:01→20:26)
[2022-06-21] MEDS: Ascorbic Acid 500 mg Chewable Tablet PO SCH (13:02)
[2022-06-21] MEDS: Carvedilol 25 MG TAB PO SCH ×2 (13:04→20:26)
[2022-06-21] MEDS: hydrALAZINE 25 MG TAB PO SCH ×2 (13:04→20:26)
[2022-06-21] MEDS: Insulin Glargine 30 UNITS/0.3 ML VIAL SC SCH ×2 (13:08→20:27)
[2022-06-21] MEDS ORDERED: Regadenoson 0.4 MG/5 ML SYRINGE ONE (13:30)
[2022-06-21] MEDS: HumaLOG 300 UNITS/3 ML VIAL SC PRN (19:19)
[2022-06-21] MEDS: Atorvastatin Calcium 40 MG TAB PO SCH (20:25)
[2022-06-22 05:19] LABS: #Lymphocytes 1.5 thou/uL (1.20-3.40); #Monocytes 0.8 thou/uL (0.11-0.59); #Neutrophils 7.6 thou/uL (1.40-6.50); %Basophils 0.1 % (0.0-1.0); %Eosinophils 0.4 % (0.0-10.0); %Lymphocytes 15.4 % (21.0-51.0); %Monocytes 7.9 % (0.0-10.0); %Neutrophils 76.3 % (42.0-75.0); Hemoglobin 13.2 g/dL (12.0-16.0); Mean Corpuscular HGB CONC 32.3 g/dL (32.0-36.0); Mean Corpuscular Hemoglobin 29.1 pg (27.0-31.0); Mean Corpuscular Volume 90.1 fl (78.0-98.0); Mean Platelet Volume 9.9 fL (7.4-10.4); Platelet Count 249 10x3/uL (130-400); RBC Distribution Width 12.1 % (11.5-14.5); Red Blood Cell (RBC) Count 4.52 mill/uL (4.20-5.40)
[2022-06-22 05:49] LABS: Anion Gap 12 mmol/L (10-20); BUN (Urea Nitrogen) 46 mg/dL (9.8-20.1); Calc. Creatinine Clearance 141 mL/min (70-130); Calcium 8.4 mg/dL (7.8-10.44); Carbon Dioxide 29 mmol/L (22-29); Chloride 100 mmol/L (98-107); Estimated GFR 61; Glucose 263 mg/dL (70-105); Potassium 4.6 mmol/L (3.5-5.1); Sodium 136 mmol/L (136-145)
[2022-06-22] MEDS: HumaLOG 300 UNITS/3 ML VIAL SC PRN ×2 (07:02→18:01)
[2022-06-22] MEDS: Lisinopril 20 MG TAB PO SCH ×2 (08:46→21:42)
[2022-06-22] MEDS: hydrALAZINE 25 MG TAB PO SCH ×2 (08:46→21:42)
[2022-06-22] MEDS: Cholecalciferol 1,000 UNITS (25 MCG) TAB PO SCH (08:46)
[2022-06-22] MEDS: Carvedilol 25 MG TAB PO SCH ×2 (08:46→21:43)
[2022-06-22] MEDS: Aspirin Chewable 81 MG TAB PO SCH (08:46)
[2022-06-22] MEDS: Ascorbic Acid 500 mg Chewable Tablet PO SCH (08:46)
[2022-06-22] MEDS: Clopidogrel Bisulfate 75 MG TAB PO SCH (08:47)
[2022-06-22] MEDS: Cyclobenzaprine 10 MG TAB PO SCH ×2 (08:47→21:39)
[2022-06-22] MEDS: Insulin Glargine 30 UNITS/0.3 ML VIAL SC SCH ×2 (08:47→21:40)
[2022-06-22] MEDS: NIFEdipine XL 90 MG TAB PO SCH (08:48)
[2022-06-22] MEDS: Atorvastatin Calcium 40 MG TAB PO SCH (21:39)
[2022-06-23] MEDS: Acetaminophen 325 MG TAB PO PRN ×3 (01:50→21:45)
[2022-06-23 04:46] LABS: Anion Gap 10 mmol/L (10-20); BUN (Urea Nitrogen) 35 mg/dL (9.8-20.1); Calc. Creatinine Clearance 185 mL/min (70-130); Calcium 8.4 mg/dL (7.8-10.44); Carbon Dioxide 27 mmol/L (22-29); Chloride 105 mmol/L (98-107); Estimated GFR 84; Glucose 108 mg/dL (70-105); Potassium 4.2 mmol/L (3.5-5.1); Sodium 138 mmol/L (136-145)
[2022-06-23 05:14] LABS: Band 3 % (5-11); Hemoglobin 12.8 g/dL (12.0-16.0); Lymphocytes 12 % (21-51); MDiff Complete? YES; Mean Corpuscular HGB CONC 32.4 g/dL (32.0-36.0); Mean Corpuscular Hemoglobin 29.4 pg (27.0-31.0); Mean Corpuscular Volume 90.5 fl (78.0-98.0); Mean Platelet Volume 9.6 fL (7.4-10.4); Monocytes 6 % (0-10); Neutrophil 79 % (42-75); Platelet Count 225 10x3/uL (130-400); RBC Distribution Width 12.2 % (11.5-14.5); Red Blood Cell (RBC) Count 4.35 mill/uL (4.20-5.40); White Blood Cell (WBC) Count 10.5 10x3/uL (4.8-10.8)
[2022-06-23] MEDS: Ascorbic Acid 500 mg Chewable Tablet PO SCH (10:35)
[2022-06-23] MEDS: Aspirin Chewable 81 MG TAB PO SCH (10:35)
[2022-06-23] MEDS: Carvedilol 25 MG TAB PO SCH ×2 (10:35→21:42)
[2022-06-23] MEDS: hydrALAZINE 25 MG TAB PO SCH (10:36)
[2022-06-23] MEDS: Cyclobenzaprine 10 MG TAB PO SCH ×2 (10:36→21:44)
[2022-06-23] MEDS: Cholecalciferol 1,000 UNITS (25 MCG) TAB PO SCH (10:36)
[2022-06-23] MEDS: Clopidogrel Bisulfate 75 MG TAB PO SCH (10:36)
[2022-06-23] MEDS: Insulin Glargine 30 UNITS/0.3 ML VIAL SC SCH ×2 (10:37→21:47)
[2022-06-23] MEDS: Lisinopril 20 MG TAB PO SCH ×2 (10:37→21:43)
[2022-06-23] MEDS: NIFEdipine XL 90 MG TAB PO SCH (10:38)
[2022-06-23] MEDS: cloNIDine 0.2mg/24 Hour PATCH TD SCH ×2 (12:12→12:37)
[2022-06-23] MEDS ORDERED: Sodium Chloride 0.9% 500 ML IV SCH (12:45)
[2022-06-23] MEDS: Atorvastatin Calcium 40 MG TAB PO SCH (21:45)
[2022-06-24 04:24] LABS: #Basophils 0.1 thou/uL (0.0-0.2); #Eosinphils 0.1 thou/uL (0.0-0.7); #Lymphocytes 1.3 thou/uL (1.20-3.40); #Monocytes 0.7 thou/uL (0.11-0.59); #Neutrophils 5.7 thou/uL (1.40-6.50); %Basophils 0.7 % (0.0-1.0); %Eosinophils 0.7 % (0.0-10.0); %Lymphocytes 16.2 % (21.0-51.0); %Monocytes 9.5 % (0.0-10.0); %Neutrophils 72.9 % (42.0-75.0); Hemoglobin 12.5 g/dL (12.0-16.0); Mean Corpuscular HGB CONC 32.8 g/dL (32.0-36.0); Mean Corpuscular Hemoglobin 29.8 pg (27.0-31.0); Mean Corpuscular Volume 90.8 fl (78.0-98.0); Mean Platelet Volume 9.6 fL (7.4-10.4); Platelet Count 195 10x3/uL (130-400); RBC Distribution Width 12.2 % (11.5-14.5); Red Blood Cell (RBC) Count 4.22 mill/uL (4.20-5.40); White Blood Cell (WBC) Count 7.8 10x3/uL (4.8-10.8)
[2022-06-24 04:49] LABS: Anion Gap 11 mmol/L (10-20); BUN (Urea Nitrogen) 33 mg/dL (9.8-20.1); Calc. Creatinine Clearance 166 mL/min (70-130); Calcium 8.2 mg/dL (7.8-10.44); Carbon Dioxide 27 mmol/L (22-29); Chloride 104 mmol/L (98-107); Estimated GFR 81; Glucose 255 mg/dL (70-105); Potassium 4.5 mmol/L (3.5-5.1); Sodium 137 mmol/L (136-145)
[2022-06-24] MEDS: HumaLOG 300 UNITS/3 ML VIAL SC PRN ×4 (05:33→21:10)
[2022-06-24] MEDS: Lisinopril 20 MG TAB PO SCH ×2 (07:56→21:04)
[2022-06-24] MEDS: Carvedilol 25 MG TAB PO SCH ×2 (07:56→21:04)
[2022-06-24] MEDS ORDERED: NIFEdipine XL 60 MG TAB PO SCH ×2 (09:00→12:03)
[2022-06-24] MEDS: Cholecalciferol 1,000 UNITS (25 MCG) TAB PO SCH (09:49)
[2022-06-24] MEDS: Aspirin Chewable 81 MG TAB PO SCH (09:49)
[2022-06-24] MEDS: Clopidogrel Bisulfate 75 MG TAB PO SCH (09:49)
[2022-06-24] MEDS: Cyclobenzaprine 10 MG TAB PO SCH ×2 (09:50→21:03)
[2022-06-24] MEDS: Ascorbic Acid 500 mg Chewable Tablet PO SCH (09:50)
[2022-06-24] MEDS: Insulin Glargine 30 UNITS/0.3 ML VIAL SC SCH ×2 (09:50→21:08)
[2022-06-24] MEDS ORDERED: NIFEdipine XL 30 MG TAB PO SCH (12:30)
[2022-06-24] MEDS: Atorvastatin Calcium 40 MG TAB PO SCH (21:05)
[2022-06-25] MEDS: Acetaminophen 325 MG TAB PO PRN ×2 (02:20→20:51)
[2022-06-25 04:26] LABS: #Basophils 0.1 thou/uL (0.0-0.2); #Eosinphils 0.1 thou/uL (0.0-0.7); #Lymphocytes 1.9 thou/uL (1.20-3.40); #Monocytes 0.9 thou/uL (0.11-0.59); %Basophils 0.7 % (0.0-1.0); %Eosinophils 1.3 % (0.0-10.0); %Lymphocytes 23.6 % (21.0-51.0); %Neutrophils 63.3 % (42.0-75.0); Hemoglobin 11.8 g/dL (12.0-16.0); Mean Corpuscular HGB CONC 32.4 g/dL (32.0-36.0); Mean Corpuscular Hemoglobin 29.1 pg (27.0-31.0); Mean Corpuscular Volume 89.8 fl (78.0-98.0); Mean Platelet Volume 9.5 fL (7.4-10.4); Platelet Count 194 10x3/uL (130-400); RBC Distribution Width 12.3 % (11.5-14.5); Red Blood Cell (RBC) Count 4.05 mill/uL (4.20-5.40); White Blood Cell (WBC) Count 7.9 10x3/uL (4.8-10.8)
[2022-06-25 04:51] LABS: Anion Gap 9 mmol/L (10-20); BUN (Urea Nitrogen) 25 mg/dL (9.8-20.1); Calc. Creatinine Clearance 181 mL/min (70-130); Calcium 8.3 mg/dL (7.8-10.44); Carbon Dioxide 27 mmol/L (22-29); Chloride 104 mmol/L (98-107); Estimated GFR 88; Glucose 239 mg/dL (70-105); Potassium 4.2 mmol/L (3.5-5.1); Sodium 136 mmol/L (136-145)
[2022-06-25] MEDS: HumaLOG 300 UNITS/3 ML VIAL SC PRN ×3 (05:44→20:57)
[2022-06-25] MEDS: Carvedilol 25 MG TAB PO SCH ×2 (07:57→20:49)
[2022-06-25] MEDS: NIFEdipine XL 30 MG TAB PO SCH (07:58)
[2022-06-25] MEDS: Lisinopril 20 MG TAB PO SCH ×2 (07:58→20:49)
[2022-06-25] MEDS: Ascorbic Acid 500 mg Chewable Tablet PO SCH (12:20)
[2022-06-25] MEDS: Aspirin Chewable 81 MG TAB PO SCH (12:20)
[2022-06-25] MEDS: Clopidogrel Bisulfate 75 MG TAB PO SCH (12:21)
[2022-06-25] MEDS: Cholecalciferol 1,000 UNITS (25 MCG) TAB PO SCH (12:21)
[2022-06-25] MEDS: Insulin Glargine 30 UNITS/0.3 ML VIAL SC SCH ×2 (12:22→20:50)
[2022-06-25] MEDS: Cyclobenzaprine 10 MG TAB PO SCH ×2 (12:22→20:51)
[2022-06-25] MEDS: Atorvastatin Calcium 40 MG TAB PO SCH (20:49)
[2022-06-26 04:40] LABS: #Eosinphils 0.1 thou/uL (0.0-0.7); #Lymphocytes 1.8 thou/uL (1.20-3.40); #Monocytes 0.7 thou/uL (0.11-0.59); #Neutrophils 5.1 thou/uL (1.40-6.50); %Basophils 0.4 % (0.0-1.0); %Eosinophils 1.5 % (0.0-10.0); %Monocytes 8.9 % (0.0-10.0); %Neutrophils 66.2 % (42.0-75.0); Hemoglobin 11.9 g/dL (12.0-16.0); Mean Corpuscular HGB CONC 33.1 g/dL (32.0-36.0); Mean Corpuscular Hemoglobin 29.8 pg (27.0-31.0); Mean Platelet Volume 9.8 fL (7.4-10.4); Platelet Count 199 10x3/uL (130-400); RBC Distribution Width 12.2 % (11.5-14.5); Red Blood Cell (RBC) Count 3.99 mill/uL (4.20-5.40); White Blood Cell (WBC) Count 7.6 10x3/uL (4.8-10.8)
[2022-06-26 04:55] LABS: Anion Gap 11 mmol/L (10-20); BUN (Urea Nitrogen) 23 mg/dL (9.8-20.1); Calc. Creatinine Clearance 183 mL/min (70-130); Calcium 8.6 mg/dL (7.8-10.44); Carbon Dioxide 26 mmol/L (22-29); Chloride 105 mmol/L (98-107); Estimated GFR 89; Glucose 213 mg/dL (70-105); Potassium 4.3 mmol/L (3.5-5.1); Sodium 138 mmol/L (136-145)
[2022-06-26] MEDS: HumaLOG 300 UNITS/3 ML VIAL SC PRN (06:35)
[2022-06-26] MEDS: Carvedilol 25 MG TAB PO SCH (08:30)
[2022-06-26] MEDS: Ascorbic Acid 500 mg Chewable Tablet PO SCH (08:30)
[2022-06-26] MEDS: Cholecalciferol 1,000 UNITS (25 MCG) TAB PO SCH (08:30)
[2022-06-26] MEDS: Clopidogrel Bisulfate 75 MG TAB PO SCH (08:30)
[2022-06-26] MEDS: Aspirin Chewable 81 MG TAB PO SCH (08:31)
[2022-06-26] MEDS: Cyclobenzaprine 10 MG TAB PO SCH (08:31)
[2022-06-26] MEDS: Lisinopril 20 MG TAB PO SCH (08:31)
[2022-06-26] MEDS: NIFEdipine XL 30 MG TAB PO SCH (08:31)
[2022-06-26] MEDS: Insulin Glargine 30 UNITS/0.3 ML VIAL SC SCH (08:32)
[2022-06-26 09:08] VITALS: BP 119/57; TEMP 97.8
== END 2022-06-26 11:45 | disposition home or self-care (01) | DRG 177 ==
LOC: ERS 13:18 → CCU 17:52 → 2NO 06-17 02:12
PROVIDERS: ADMIT Internal Medicine; ATTEND Hospitalist
PROC: 8E0ZXY6 Isolation (ICD-10-PCS; principal; 2022-06-14)
PROC: XW033E5 Introduction of Remdesivir Anti-infective into Peripheral Vein, Percutaneous Approach, New Technology Group 5 (ICD-10-PCS; 2022-06-14)
DX: U07.1 COVID-19 (principal); I50.33 Acute on chronic diastolic (congestive) heart failure; J12.82 Pneumonia due to coronavirus disease 2019; J96.01 Acute respiratory failure with hypoxia; I47.29 Other ventricular tachycardia; Z68.44 Body mass index [BMI] 60.0-69.9, adult; I16.1 Hypertensive emergency; E78.5 Hyperlipidemia, unspecified; E11.9 Type 2 diabetes mellitus without complications; E66.01 Morbid (severe) obesity due to excess calories; H40.9 Unspecified glaucoma; I16.0 Hypertensive urgency; M79.7 Fibromyalgia; I25.10 Atherosclerotic heart disease of native coronary artery without angina pectoris; I11.0 Hypertensive heart disease with heart failure; I25.2 Old myocardial infarction; Z88.0 Allergy status to penicillin; Z88.5 Allergy status to narcotic agent; Z79.4 Long term (current) use of insulin; Z79.899 Other long term (current) drug therapy; Z91.14 Patient's other noncompliance with medication regimen
CPT/HCPCS: 36415; 36416; 71045; 74018; 78452; 80048; 80053; 80076; 81003; 81015; 82550; 82728; 83036; 83605; 83690; 83735; 83880; 84100; 84436; 84443; 84484; 85025; 86140; 87040; 87077; 87149; 87186; 87804; 93005; 93010; 93017; 93306; 96365; 96367; 96375; A9500; J0248; J0360; J1100; J1650; J1815; J1940; J1956; J2785; J3475; J7030; J7050; J8540; Q0162; U0002

== ENCOUNTER 2022-09-01 14:30 | Emergency (ER) | payer BC ==
[~2022-09-01 14:30] MED LIST changes: -Aspirin Chewable 81 MG TAB ONE; -Heparin 10,000 UNITS/ 10 ML VIAL ONE; +Iopamidol-370 76% 500 ML MDV (1 ML CHARGE) ONE; -Metoprolol Tartrate 5 MG/5 ML VIAL ONE; -Sodium Chloride 0.9% 1,000 ML BAG ONE
[2022-09-01 15:58] LABS: #Eosinphils 0.1 thou/uL (0.0-0.7); #Lymphocytes 1.8 thou/uL (1.20-3.40); #Monocytes 0.4 thou/uL (0.11-0.59); #Neutrophils 5.5 thou/uL (1.40-6.50); %Basophils 0.5 % (0.0-1.0); %Lymphocytes 23.2 % (21.0-51.0); %Monocytes 5.3 % (0.0-10.0); Hemoglobin 12.9 g/dL (12.0-16.0); Mean Corpuscular HGB CONC 32.9 g/dL (32.0-36.0); Mean Corpuscular Hemoglobin 29.6 pg (27.0-31.0); Mean Corpuscular Volume 90.1 fl (78.0-98.0); Mean Platelet Volume 9.2 fL (7.4-10.4); Platelet Count 211 10x3/uL (130-400); Red Blood Cell (RBC) Count 4.37 mill/uL (4.20-5.40); White Blood Cell (WBC) Count 7.8 10x3/uL (4.8-10.8)
[2022-09-01 16:28] LABS: ALT (SGPT) 22 U/L (8-55); AST (SGOT) 21 U/L (5-34); Alkaline Phosphatase 82 U/L (40-110); Anion Gap 13 mmol/L (10-20); BUN (Urea Nitrogen) 14 mg/dL (9.8-20.1); Bilirubin, Total 0.4 mg/dL (0.2-1.2); Calc. Creatinine Clearance 0 mL/min (70-130); Calcium 9.3 mg/dL (7.8-10.44); Carbon Dioxide 25 mmol/L (22-29); Chloride 106 mmol/L (98-107); Estimated GFR 82; Globulin 3.1 g/dL (2.4-3.5); Glucose 132 mg/dL (70-105); Potassium 4.3 mmol/L (3.5-5.1); Protein, Total 7.1 g/dL (6.0-8.3); Sodium 140 mmol/L (136-145)
[2022-09-01] MEDS ORDERED: HYDROmorphone 0.5 MG/0.5 ML SYRINGE ONE (18:17)
[2022-09-01] MEDS ORDERED: Ondansetron PF 4 MG/2 ML Vial ONE (18:17)
[2022-09-01 19:31] LABS: Bacteria/HPF None Seen HPF (None Seen); Bilirubin Negative (Negative); Blood, Urine Negative (Negative); Clarity Clear (Clear); Glucose, Urine (Dipstick) Normal (Negative); Ketone, Urine Negative (Negative); Leukocyte Negative Leu/uL (Negative); Nitrite Negative (Negative); Protein, Urine (Dipstick) 30 mg/dL (Neg-Trace); RBC/HPF 0-3 HPF (0-3); Specific Gravity, Urine 1.011 (1.002-1.036); Squamous Epithelial 0-3 HPF (0-3); Urobilinogen Normal mg/dL (Less than 2); WBC/HPF 0-3 HPF (0-3); pH, Urine 6.5 (5.0-9.0)
[2022-09-01] MEDS ORDERED: Lidocaine Viscous Sol 2% 15 ml UD Cup ONE (21:51)
[2022-09-01] MEDS ORDERED: Mag-Al 1200 mg/1200 mg/30 ML UDCUP ONE (21:51)
== END 2022-09-01 22:31 | disposition home or self-care (01) ==
LOC: ERS 14:30
DX: K29.70 Gastritis, unspecified, without bleeding (principal); R07.9 Chest pain, unspecified; I10 Essential (primary) hypertension; E11.9 Type 2 diabetes mellitus without complications; E66.9 Obesity, unspecified; E78.00 Pure hypercholesterolemia, unspecified; Z79.899 Other long term (current) drug therapy; Z79.82 Long term (current) use of aspirin
CPT/HCPCS: 36415; 71045; 71260; 74177; 80053; 81003; 81015; 84484; 85025; 86140; 93005; 96365; 96375; J1170; J2405; Q9967